=== PATIENT | female | born 1990 | race Hispanic/Latino ===

== ENCOUNTER 2025-09-08 23:59 | Emergency (ER) | payer OTHER ==
--- OUTSIDE RECORDS SUMMARY | 2025-09-09 00:09 | XMS REPORT | Continuity of Care Document ---
Author Name Unknown Address [address] [facility] [address] [place] [address] [facility] [place] Address [address] [facility]. 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 Role Phone SYLVIAKATLIN DIETZ Primary Care Physician Unavailab RON Wisdom Attending Clinician Unavailable BALDEMAR ARRINGTON Attending Clinician Unavailable BALDEMAR ARRINGTON Attending Clinician Unavailable Sharlene Samano MD Attending Clinician [phone] Adalid Self MD Attending Clinician [phone] ZORA YOUNG Attending Clinician Unavailable ZORA YOUNG Attending Clinician Unavailable Champ Kimberley WELSH Attending Clinician + HEIDY IVTAL Attending Clinician Unavaila MAME Ha Attending Clinician Unavailable Doctor Unassigned, [place] Attending Clinician U navailable KIMBERLEY OAKES Attending Clinician Unavail able SUMA CHEN Attending Clinician Unavailable SUMA CHEN Attending Clinician Unavailable Heidy Vital CNM Attending Clinician [phone] Ultrasound, Pradipnikos Attending Clinician Unavaila Ruby Rhoades MD Attending Clinician ARABELLA SAMUEL Attending Clinician Unavailable [facility] Attending Clinician Unava ilERIKA Romeo Attending Clinician Unavailable ERIKA PARR Attending Clinician Unavailable MIKIE DEGROOT Attending Clinician Unavailable MIKIE DEGROOT Attending Clinician Unavailable LADONNA GOLDSTEIN Attending Clinician Unav ailable LADONNA GOLDSTEIN Attending Clinician Unav glenn Goldstein MD, Ladonna Diaz Attending Clinician + Sylvia PADILLA, Katlin Attending Clinician [phone] KATLIN WARD Attending Clinician Unavailable SEBLE VALENZUELA Attending Clinician Unavailab DAYANA Lopez Attending Clinician Unavailable DAYANA JESSICA Attending Clinician Unavailable Peter PADILLA, Heidy Attending Clinician [phone] SARAY BAEZ Attending Clinician Unavailab SARAY Resendez Attending Clinician Unavailab MARY Vega Attending Clinician Unavailable Nurse, [facility] Rgv Cprit Obgyree Attending Clini marimar Unavailable Kimberley Farr Attending Clinician + Terrell JIMENEZ, Guillermina Fuchs Attending Clinician NIMISHA BECKMAN Attending Clinician Unavailab bronson Beckman MD, Nimisha Sutherland Attending Clinician [phone] MICHAEL SEVILLA Attending Clinician Unavailable MICHAEL SEVILLA Attending Clinician Unavailable Michael Sevilla MD Attending Clinician [phone] Visit, [facility] Nurse Attending Clinician Unava ilHeidy Luna CNM Attending Clinician [phone] [facility], [facility] Temp Attending Clinician Daysi vailatristan Jeong NP, Bonny Attending Clinician [phone] BONNY JEONG Attending Clinician Unavailable ARABELLA SAMUEL Admitting Clinician Unavailable ERIKA PARR Admitting Clinician Unavailable BALDEMAR ARRINGTON Admitting Clinician Unavailable ZORA YOUNG Admitting Clinician Unavailable SEBLE VALENZUELA Admitting Clinician Unavailab SARAY Resendez Admitting Clinician Unavailab bronson Payers Payer Name Policy Type Policy Number Effective Date Expirati on Date Source [facility] CHIP JEISON LOW FPL [id number] 2024 00:00:00 [facility] [id number] EMERGENCY MEDICAID [id number] 2025 00:00:00 2025 00:00:00 Problems Condition Name Condition Details Condition Category Status Onset Date Resolution Date Last Treatment Date Treating Clinician Comments Source (spontaneo us vaginal delivery) (spontaneo us vaginal delivery) Disease Active 2024-11 0-05 00:00: 00 [facility] Single liveborn infant Single liveborn infant Disease Active 2024-11 0-05 00:00: 00 [facility] 39 weeks gestation of 39 weeks gestation of Disease Active 2024-11 0-03 00:00: 00 [facility] Bacterial vaginosis in Bacterial vaginosis in Disease Active 2024-11 0-03 00:00: 00 [facility] 38 weeks gestation of 38 weeks gestation of Disease Active 2024-11 0-02 00:00: 00 [facility] Obesity (BMI 30-39.9) Obesity (BMI 30-39.9) Disease Active 2024-11 0-02 00:00: 00 [facility] Dizziness Dizziness Disease Active 9-10 00:00: 00 [facility] Vertigo Vertigo Disease Active 0 9-10 00:00: 00 [facility] Anxiety during in third trimester, antepartum Anxiety during in third trimester, antepartum Disease Active 8-05 00:00: 00 [facility] Depression during , antepartum Depression during , antepartum Disease Active 8-05 00:00: 00 [facility] Anemia of mother in , antepartum Anemia of mother in , antepartum Disease Active 0 6-12 00:00: 00 [facility] Heartburn during Heartburn during Disease Active 0 4-16 00:00: 00 [facility] Acute UTI (urinary tract infection) Acute UTI (urinary tract infection) Disease Active 0 2-27 00:00: 00 [facility] Rubella non-immune status, antepartum Rubella non-immune status, antepartum Disease Active 0 2-07 00:00: 00 [facility] Dermatitis of face Dermatitis of face Disease Active 0 2-06 00:00: 00 [facility] Obesity affecting Obesity affecting Disease Active 0 2-06 00:00: 00 [facility] History of miscarriag e, currently History of miscarriag e, currently Disease Active 0 2-06 00:00: 00 [facility] History of migraine with aura History of migraine with aura Disease Active 0 4-30 00:00: 00 [facility] Urinary tract infection in mother during third trimester of Urinary tract infection in mother during third trimester of Disease Resolve d 2024-0 2-27 00:00: 00 2025-08-29 00:00:00 2025-08-29 13:16:24 [facility] 35 weeks gestation of 35 weeks gestation of Disease Resolve d 2024-0 9-10 00:00: 00 2025-08-13 00:00:00 2025-08-13 14:06:03 [facility] Headache Headache Disease Resolve d 2024-0 9-10 00:00: 00 2025-08-07 00:00:00 2025-08-07 08:49:56 [facility] Tinnitus of both ears Tinnitus of both ears Disease Resolve d 2024-0 8-01 00:00: 00 2025-08-07 00:00:00 2025-08-07 08:50:09 [facility] Low-lying placenta Low-lying placenta Disease Resolve d 2024-0 7-09 00:00: 00 2025-08-07 00:00:00 2025-08-07 08:49:48 [facility] 30 weeks gestation of 30 weeks gestation of Disease Resolve d 2024-0 8-05 00:00: 00 2025-07-08 00:00:00 2025-07-08 13:30:13 [facility] Uterine size-date discrepanc y in second trimester Uterine size-date discrepanc y in second trimester Disease Resolve d 2024-0 6-11 00:00: 00 2025-06-04 00:00:00 2025-06-04 09:09:59 [facility] Acute cough Acute cough Disease Resolve d 2024-0 2-27 00:00: 00 2025-02-25 00:00:00 2025-02-25 15:23:23 [facility] Subchorion ic hemorrhage of placenta in first trimester Subchorion ic hemorrhage of placenta in first trimester Disease Resolve d 2-27 00:00: 00 2025-02-25 00:00:00 2025-02-25 15:24:06 [facility] Abdominal pain affecting Abdominal pain affecting Disease Resolve d 2-27 00:00: 00 2025-01-29 00:00:00 2025-01-29 12:02:01 [facility] Upper respirator y tract infection, unspecifie d type Upper respirator y tract infection, unspecifie d type Disease Resolve d 2-27 00:00: 00 2025-01-29 00:00:00 2025-01-29 12:02:02 [facility] Vaginal bleeding affecting early Vaginal bleeding affecting early Disease Resolve d 2-27 00:00: 00 2025-01-28 00:00:00 2025-01-28 15:12:38 [facility] Other general counseling and advice for contracept michael management Other general counseling and advice for contracept michael management Disease Resolve d 4-30 00:00: 00 2025-01-02 00:00:00 2025-01-02 12:56:23 [facility] Need for HPV vaccinatio n Need for HPV vaccinatio n Disease Resolve d 2022-11 2-06 00:00: 00 2025-01-02 00:00:00 2025-01-02 12:56:23 [facility] Allergies, Adverse Reactions, Alerts Allergy Name Allergy Type Status Severity Reaction(s) Onset Date Inactive Date Treating Clinician Comments Source NO KNOWN ALLERGIE S Drug Class Active [facility] Social History Social Habit Start Date Stop Date Quantity Comments Source ASSERTION 2024-12-14 00:00:00 Not [facility] intake 2025-08-30 00:00:00 2025-08-30 00:00:00 Lifetime non-drinker (finding) [facility] History of Social function 2025-01-24 00:00:00 2025-01-24 00:00:00 [facility] Alcohol intake 2024-03-26 00:00:00 2024-03-26 00:00:00 Lifetime non-drinker (finding) [facility] Tobacco use and exposure 2023-09-18 00:00:00 2023-09-18 00:00:00 Smokeless tobacco non-user [facility] Sex assigned at 1990 00:00:00 1990 00:00:00 [facility] Smoking Status Start Date Stop Date Source Never smoked tobacco [facility] Medications Ordered Medication Name Filled Medication Name Start Date Stop Date Current Medication? Ordering Clinician Indication Dosage Frequency Signature (SIG) Comments Components Source cyclobenzap rine (FLEXERIL) tablet 5 mg cyclobenzap rine (FLEXERIL) tablet 5 mg 2024-11 02:30: 00 08-31 02:08 :00 Yes 5mg 5 mg, Oral, ONCE, 1 dose, On 08/30/25 at 2130, Routine [facility] vitamin w/FA tablet 2024-11 00:00: 00 Yes [id number] 1{tbl} Take 1 tablet by mouth daily. [facility] docusate 100 mg capsule 2024-11 00:00: 00 Yes [id number] 200mg Take 2 capsules by mouth once daily as needed for Constipati on. [facility] ferrous sulfate 325 mg (65 mg iron) tablet 2024-11 00:00: 00 Yes [id number] 325mg Take 1 tablet by mouth daily. [facility] ibuprofen 800 mg tablet 2024-11 00:00: 00 Yes [id number] 800mg Take 1 tablet by mouth every 8 hours as needed (pain). Take with food or milk. [facility] ibuprofen (IBU) tablet 600 mg ibuprofen (IBU) tablet 600 mg 2024-11 21:15: 00 08-31 21:36 :30 Yes 600mg 600 mg, Oral, TID, First dose on 08/30/25 at 1615, Until Discontinu ed, Routine [facility] acetaminoph en (TYLENOL) tablet 650 mg acetaminoph en (TYLENOL) tablet 650 mg 2024-11 0 19:00: 00 08-31 21:36 :30 Yes 650mg 650 mg, Oral, TID, First dose on 08/30/25 at 1400, Until Discontinu ed, Routine [facility] rho(D) immune globulin (RHOPHYLAC) injection 300 mcg 2024-11 0 18:56: 39 08-31 21:36 :30 No 300ug [facility] diphenhydrA MINE (BENADRYL) tablet 25 mg 2024-11 18:56: 36 08-31 21:36 :30 No 25mg [facility] ondansetron (ZOFRAN (PF)) injection 4 mg ondansetron (ZOFRAN (PF)) injection 4 mg 2024-11 18:56: 36 08-31 21:36 :30 Yes 4mg 4 mg, Slow IV Push, Q8HPRN, Starting on 08/30/25 at 1356, Until 08/31/25 at 1636, Administer over 2-5 Minutes, 2 mL [facility] simethicone (GAS RELIEF (SIMETHICON E)) chewable tablet 160 mg simethicone (GAS RELIEF (SIMETHICON E)) chewable tablet 160 mg 2024-11 18:56: 36 08-31 21:36 :30 Yes 160mg 160 mg, Oral, PC+HSPRN, Starting on 08/30/25 at 1356, Until 08/31/25 at 1636, Routine, Gas [facility] docusate (COLACE) capsule 200 mg docusate (COLACE) capsule 200 mg 2024-11 0-04 18:56: 36 08-31 21:36 :30 Yes 200mg 200 mg, Oral, QDAILYPRN, Starting on 08/30/25 at 1356, Until 08/31/25 at 1636, Routine, Constipati on [facility] magnesium hydroxide (MILK OF MAGNESIA) 400 mg/5 mL suspension 30 mL 2024-11 004 18:56: 36 08-31 21:36 :30 No 30mL [facility] benzocaine- menthol (DERMOPLAST ) 20-0.5 % topical spray benzocaine- menthol (DERMOPLAST ) 20-0.5 % topical spray 2024-11 0 18:56: 35 08-31 21:36 :30 Yes Topical, PRN, Starting on 08/30/25 at 1356, Until 08/31/25 at 1636, Routine, Perineum discomfort [facility] metroNIDAZO LE (FLAGYL) tablet 500 mg metroNIDAZO LE (FLAGYL) tablet 500 mg 2024-11 01:00: 00 08-30 18:56 :38 Yes 500mg 500 mg, Oral, Q12H, 8 doses, First dose on Mon08/29/25 at 2000, Last dose on Mon09/02/25 at 0800, Routine, Reason for Anti-Infec tive: Documented Infection, Documented Infection Site: Abdominal, Pelvic, Duration of therapy: Once (ED) [facility] ropivacaine 0.2 % (NAROPIN (PF)) epidural infusion 2024-11 23:22: 00 08-30 18:57 :50 No Epidural, CONTINUOUS PRN, Starting on Mon08/29/25 at 1822, Until 08/30/25 at 1357, Routine, Intra-op [facility] lidocaine-e pinephrine (XYLOCAINE W/EPINEPHRI NE) 1.5 %-1:200,000 injection 2024-11 003 23:19: 00 08-30 18:57 :50 No Epidural, ONCE INTRA PROCEDURE, Starting on Mon08/29/25 at 1819, Until 08/30/25 at 1357, Routine, Intra-op [facility] lactated ringers IV infusion 500 mL 2024-11 0-03 22:00: 00 08-29 23:36 :22 No 500mL at 999 mL/hr, 500 mL, IV Infusion, ONCE, 1 dose, On Mon08/29/25 at 1700, Routine [facility] ondansetron (ZOFRAN (PF)) injection 4 mg ondansetron (ZOFRAN (PF)) injection 4 mg 2024-11 22:00: 00 08-29 21:08 :00 Yes 4mg 4 mg, Slow IV Push, ONCE, On Mon08/29/25 at 1700, For 1 dose, Please give medication over 2-5 minutes. [facility] sodium citrate-cit irene acid (BICITRA) 500-334 mg/5 mL solution 30 mL 2024-11 21:00: 30 08-29 23:01 :00 No 30mL 30 mL, Oral, PRE-PROCED URE ONCE, 1 dose, Starting on Mon08/29/25 at 1600, Until Mon08/29/25 at 1801, Routine, Surgery/Pr ocedure [facility] Oxytocin in Normal Saline 30 unit/500 mL IV infusion Soln Oxytocin in Normal Saline 30 unit/500 mL IV infusion Soln 2024-11 21:00: 00 08-30 18:56 :38 Yes 0mU/min 0-42 yeni-unit s/min (0-42 mL/hr), IV Infusion, CONTINUOUS , Starting on Mon08/29/25 at 1600, Infuse IV through a controlled infusion pump at a proximal port on the peripheral IV line. Oxytocin may be increased to 30 milliunits when ordered by a 3rd or 4th year resident or attending physician/ faculty. 3rd or 4th year resident must document a note that the increase to 30 milliunits was discussed with faculty. Oxytocin may be increased to 42 milliunits when ordered by a 3rd or 4th year resident or attending physician/ faculty. 3rd or 4th year resident must document a note that the increase to 42 milliunits was discussed with faculty. Max 42 yeni-unit s/min. Oxytocin shall be maintained at a rate that achieves adequate contractio ns. "Adequate contractio ns" means 3-5 contractio ns in 10 minutes averaged over a 30-minute window -or- at least 200 MVU every 10 minutes for 2 hours if an IUPC is in place. Incrementa l dosage of oxytocin is determined by uterine and response; therefore the RN may increase or decrease the dosage by 6mu or discontinu e oxytocin based on maternal and assessment . See policy 7.11.52. For post-deliv sissy uterotonic : Increase to 300 mL/hr for 1 hr then 150 mL/hr for 1 hr. For post delivery uterine atony: Start at 600 mL/hr for 1 hr then 150 mL/hr for 1 hr. [facility] D5W-LR IV infusion 1,000 mL 2024-11 003 17:10: 36 08-30 18:56 :38 No 1000mL at 1-75 mL/hr, IV Infusion, TITRATE, Starting on Mon08/29/25 at 1210, Until 08/30/25 at 1356, Routine [facility] metroNIDAZO LE 500 mg tablet 08-26 00:00: 00 Yes [id number] 500mg Take 1 tablet by mouth 2 times daily. [facility] diphenhydrA MINE (BENADRYL) tablet 25 mg diphenhydrA MINE (BENADRYL) tablet 25 mg 08-06 08:15: 00 08-06 08:11 :00 Yes 25mg 25 mg, Oral, Once, 1 dose, On Mon08/06/25 at 0315, Routine [facility] metoclopram sixto HCl (REGLAN) tablet 10 mg metoclopram sixto HCl (REGLAN) tablet 10 mg 08-06 08:15: 00 08-06 08:11 :00 Yes 10mg 10 mg, Oral, Once, 1 dose, On Mon08/06/25 at 0315, Routine [facility] acetaminoph en (TYLENOL) tablet 650 mg 08-06 01:30: 00 08-06 01:37 :00 No 650mg 650 mg, Oral, ONCE, 1 dose, On Mon08/05/25 at 2030, RAFFAELE [facility] diphenhydrA MINE 25 mg tablet 08-06 00:00: 00 08-31 00:00 :00 No [id number] 25mg Take 1 tablet by mouth every 6 hours as needed for Sleep or Other (take with Reglan for Headaches) . [facility] metoclopram sixto HCl 10 mg tablet 08-06 00:00: 08-31 00:00 :00 No [id number] 10mg Take 1 tablet by mouth every 6 hours as needed (take with benadryl for headache). [facility] cefTRIAXone (ROCEPHIN) 1,000 mg in sterile water for injection 10 mL IV Push 08-05 23:30: 00 08-05 23:48 :00 No 1000mg 1,000 mg, Intravenou s, ONCE, 1 dose, On Mon08/05/25 at 1830, 10 mL, Reason for Anti-Infec tive: Documented Infection, Documented Infection Site: Urine, Duration of therapy: Once (ED) [facility] NaCl 0.9% (NS) bolus infusion 1,000 mL 08-05 22:30: 00 08-06 01:36 :00 No 1000mL at 999 mL/hr, 1,000 mL, IV Infusion, ONCE, 1 dose, On Mon08/05/25 at 1730, RAFFAELE [facility] ondansetron (ZOFRAN (PF)) injection 4 mg 08-05 21:45: 00 08-05 23:24 :00 No 4mg 4 mg, Slow IV Push, ONCE, 1 dose, On Mon08/05/25 at 1645, Administer over 2-5 Minutes, 2 mL [facility] ondansetron 4 mg disintegrat ing tablet 08-05 00:00: 00 08-31 00:00 :00 No [id number] 4mg Take 1 tablet by mouth every 8 hours as needed for Nausea and Vomiting (N/V). [facility] cephALEXin 500 mg capsule 08-05 00:00: 00 08-13 04:59 :00 Yes [id number] 500mg Take 1 capsule by mouth 4 times daily for 7 days. [facility] hydrOXYzine 25 mg tablet 8-15 00:00: 00 08-31 00:00 :00 No [id number] 25mg Take 1 tablet by mouth every 6 hours as needed for Itching. [facility] ondansetron 4 mg tablet 8-05 00:00: 00 08-31 00:00 :00 No [id number] 4mg Take 1 tablet by mouth every 8 hours as needed for Nausea and Vomiting (N/V). [facility] hydrOXYzine 10 mg tablet 07-01 00:00: 00 07-11 00:00 :00 No [id number] 10mg Take 1 tablet by mouth every 6 hours as needed for Itching or Anxiety. [facility] maalox/diph enhydrAMINE :lidocaine2 %viscous 1:1:1: suspension (COMPOUNDED ) 05-08 06:15: 00 05-08 06:21 :00 No 15mL 15 mL, Oral, ONCE, 1 dose, On Mon05/08/25 at 0115, Routine [facility] Iron Fum & P-FA-Vit B & C No.9 (INTEGRA PLUS) 125 mg iron- 1 mg Cap 05-08 00:00: 00 07-10 00:00 :00 No [id number] 1{capsu le} Take 1 capsule by mouth daily. [facility] metroNIDAZO LE 500 mg tablet 5-14 00:00: 00 05-06 00:00 :00 No [id number] 500mg Take 1 tablet by mouth 2 (two) times daily. [facility] PNV 67-iron ps-folate no.1-dha (VITAFOL ULTRA) 29 mg iron- 1 mg-200 mg Cap -16 00:00: 00 08-31 00:00 :00 No [id number] 1{capsu le} Take 1 capsule by mouth daily. [facility] esomeprazol e 20 mg capsule 16 00:00: 00 08-31 00:00 :00 No [id number] 20mg Take 1 capsule by mouth daily before a meal. [facility] PNV no.95/sandra us fum/folic ac ( ORAL) 2-28 11:07: 05 03-12 00:00 :00 No Take by mouth. [facility] cefdinir 300 mg capsule 2-25 00:00: 00 01-29 05:59 :00 No [id number] 4 300mg Take 1 capsule by mouth every 12 (twelve) hours for 7 days. [facility] proMETHazin e 25 mg tablet 2-20 00:00: 00 08-07 00:00 :00 No [id number] 25mg Take 1 tablet by mouth every 4 (four) hours as needed for Nausea and Vomiting (N/V). [facility] norethindro ne 0.35 mg tablet 03-26 00:00: 00 01-02 00:00 :00 No [id number] 1{tbl} Take 1 tablet by mouth daily. [facility] pimecrolimu s 1 % cream 4- 00:00: 00 08-31 00:00 :00 No [id number] Apply to area(s) every morning. Safe for the face. [facility] tacrolimus 0.1 % ointment 3 00:00: 00 08-31 00:00 :00 No [id number] Apply to area(s) 2 (two) times daily. Safe for the face. [facility] fluticasone propionate 0.05 % cream 2- 00:00: 00 08-31 00:00 :00 No [id number] Apply to area(s) 2 (two) times daily. [facility] doxycycline monohydrate 100 mg capsule 2-08 00:00: 00 01-02 00:00 :00 No [id number] 100mg Take 1 capsule by mouth 2 (two) times daily. [facility] medroxyPROG ESTERone (DEPO-PROVE RA) syringe 150 mg 2022-11 1-07 16:00: 00 11-26 15:59 :00 No [id number] 150mg [facility] Immunizations Ordered Immunization Name Filled Immunization Name Date Status Comments Source MMR 2025-08-31 00:00:00 Completed [facility] Flu Injectable MDCK Pres-Free (FLUCELVAX) 2025-08-13 00:00:00 Completed [facility] TDAP 2025-06-17 00:00:00 Completed [facility] Flu Injectable MDCK Pres-Free (FLUCELVAX) 2025-01-02 00:00:00 Completed [facility] HPV9 2024-03-26 00:00:00 Completed HPV9 2023-11-01 00:00:00 Completed Influenza Virus Vaccine Quad .5 mL IM 6+ MO (FLUZONE/FLULAVAL/F LUARIX) 2023-11-01 00:00:00 Completed [facility] HPV9 2023-09-18 00:00:00 Completed [facility] Influenza Virus Vaccine Quad .5 mL IM 6+ MO (FLUZONE/FLULAVAL/F LUARIX) Unknown Completed [facility] HPV9 Unknown Completed [facility] Influenza Virus Vaccine Quad .5 mL IM 6+ MO (FLUZONE/FLULAVAL/F LUARIX) Unknown Completed [facility] HPV9 Unknown Completed [facility] HPV9 Unknown Completed [facility] Influenza Virus Vaccine Quad .5 mL IM 6+ MO (FLUZONE/FLULAVAL/F LUARIX) Unknown Completed [facility] HPV9 Unknown Completed [facility] Influenza Virus Vaccine Quad .5 mL IM 6+ MO (FLUZONE/FLULAVAL/F LUARIX) Unknown Completed [facility] HPV9 Unknown Completed [facility] Influenza Virus Vaccine Quad .5 mL IM 6+ MO (FLUZONE/FLULAVAL/F LUARIX) Unknown Completed [facility] HPV9 Unknown Completed [facility] Influenza Virus Vaccine Quad .5 mL IM 6+ MO (FLUZONE/FLULAVAL/F LUARIX) Unknown Completed [facility] HPV9 Unknown Completed [facility] Influenza Virus Vaccine Quad .5 mL IM 6+ MO (FLUZONE/FLULAVAL/F LUARIX) Unknown Completed [facility] HPV9 Unknown Completed [facility] HPV9 Unknown Completed [facility] HPV9 Unknown Completed [facility] HPV9 Unknown Completed [facility] HPV9 Unknown Completed [facility] Influenza Virus Vaccine Quad .5 mL IM 6+ MO (FLUZONE/FLULAVAL/F LUARIX) Unknown Completed [facility] Vital Signs Vital Name Observation Time Observation Value Comments S ource Systolic blood pressure 2025-08-31 12:37:00 106 mm[Hg] [facility] Diastolic blood pressure 2025-08-31 12:37:00 72 mm[Hg] [facility] Heart rate 2025-08-31 12:37:00 70 /min Unive [facility] Body temperature 2025-08-31 12:37:00 36.5 Claudia [facility] Respiratory rate 2025-08-31 12:37:00 18 /min [facility] Oxygen saturation in Arterial blood by Pulse oximetry 2025-08-31 12:37:00 98 /min [facility] Body height 2025-08-29 15:55:00 160 cm [facility] Body weight 2025-08-29 15:55:00 [facility].553 [facility] [facility] BMI 2025-08-29 15:55:00 32.64 kg/m2 [facility] Systolic blood pressure 2025-08-29 04:24:00 115 mm[Hg] [facility] Diastolic blood pressure 2025-08-29 04:24:00 69 mm[Hg] [facility] Heart rate 2025-08-29 04:24:00 92 /min [facility] Respiratory rate 2025-08-29 04:24:00 17 /min [facility] Oxygen saturation in Arterial blood by Pulse oximetry 2025-08-29 04:24:00 98 /min [facility] Body temperature 2025-08-29 00:30:00 36.94 Claudia [facility] Body weight 2025-08-29 00:21:00 84.913 kg [facility] BMI 2025-08-29 00:21:00 33.16 kg/m2 [facility] Systolic blood pressure 2025-08-27 19:33:00 111 mm[Hg] [facility] Diastolic blood pressure 2025-08-27 19:33:00 68 mm[Hg] [facility] Heart rate 2025-08-27 19:33:00 86 /min [facility] Body temperature 2025-08-27 19:33:00 35.94 Claudia [facility] Respiratory rate 2025-08-27 19:33:00 18 /min [facility] Body height 2025-08-27 19:33:00 160 cm [facility] Body weight 2025-08-27 19:33:00 84.233 kg [facility] BMI 2025-08-27 19:33:00 32.90 kg/m2 [facility] Systolic blood pressure 2025-08-20 19:58:00 111 mm[Hg] [facility] Diastolic blood pressure 2025-08-20 19:58:00 66 mm[Hg] [facility] Heart rate 2025-08-20 19:58:00 75 /min [facility] Body temperature 2025-08-20 19:58:00 36.22 Claudia [facility] Respiratory rate 2025-08-20 19:58:00 19 /min [facility] Body height 2025-08-20 19:58:00 160 cm [facility] Body weight 2025-08-20 19:58:00 84.029 kg [facility] BMI 2025-08-20 19:58:00 32.82 kg/m2 [facility] Systolic blood pressure 2025-08-13 19:01:00 103 mm[Hg] [facility] Diastolic blood pressure 2025-08-13 19:01:00 65 mm[Hg] [facility] Heart rate 2025-08-13 19:01:00 82 /min [facility] Body temperature 2025-08-13 19:01:00 36.39 Claudia [facility] Respiratory rate 2025-08-13 19:01:00 20 /min [facility] Body height 2025-08-13 19:01:00 160 cm [facility] Body weight 2025-08-13 19:01:00 84.029 kg [facility] BMI 2025-08-13 19:01:00 32.82 kg/m2 [facility] Systolic blood pressure 2025-08-06 19:02:00 100 mm[Hg] [facility] Diastolic blood pressure 2025-08-06 19:02:00 67 mm[Hg] [facility] Heart rate 2025-08-06 19:02:00 90 /min [facility] Body temperature 2025-08-06 19:02:00 36.83 Claudia [facility] Respiratory rate 2025-08-06 19:02:00 17 /min [facility] Body height 2025-08-06 19:02:00 160 cm [facility] Body weight 2025-08-06 19:02:00 83.065 kg [facility] BMI 2025-08-06 19:02:00 32.44 kg/m2 [facility] Heart rate 2025-08-06 09:07:00 75 /min [facility] Oxygen saturation in Arterial blood by Pulse oximetry 2025-08-06 09:07:00 98 /min [facility] Systolic blood pressure 2025-08-06 09:00:00 96 mm[Hg] [facility] Diastolic blood pressure 2025-08-06 09:00:00 58 mm[Hg] [facility] Respiratory rate 2025-08-06 09:00:00 18 /min [facility] Body temperature 2025-08-06 07:50:00 36.72 Claudia [facility] Body height 2025-08-06 07:16:00 160 cm [facility] Body weight 2025-08-06 07:16:00 82.555 kg [facility] BMI 2025-08-06 07:16:00 32.24 kg/m2 [facility] Body temperature 2025-08-06 01:37:00 36.67 Claudia [facility] Diastolic blood pressure 2025-08-06 01:36:00 66 mm[Hg] [facility] Heart rate 2025-08-06 01:36:00 84 /min [facility] Respiratory rate 2025-08-06 01:36:00 16 /min [facility] Systolic blood pressure 2025-08-06 01:36:00 100 mm[Hg] [facility] Oxygen saturation in Arterial blood by Pulse oximetry 2025-08-06 01:00:00 100 /min [facility] Body height 2025-08-05 21:31:12 160 cm [facility] Body weight 2025-08-05 21:31:12 82.6 kg [facility] BMI 2025-08-05 21:31:12 32.26 kg/m2 [facility] Systolic blood pressure 2025-07-22 14:49:00 100 mm[Hg] [facility] Diastolic blood pressure 2025-07-22 14:49:00 65 mm[Hg] [facility] Heart rate 2025-07-22 14:49:00 84 /min [facility] Body temperature 2025-07-22 14:49:00 35.89 Claudia [facility] Respiratory rate 2025-07-22 14:49:00 18 /min [facility] Body height 2025-07-22 14:49:00 160 cm [facility] Body weight 2025-07-22 14:49:00 81.92 kg [facility] BMI 2025-07-22 14:49:00 31.99 kg/m2 [facility] Systolic blood pressure 2025-07-08 13:44:00 100 mm[Hg] [facility] Diastolic blood pressure 2025-07-08 13:44:00 59 mm[Hg] [facility] Heart rate 2025-07-08 13:44:00 79 /[facility] Body temperature 2025-07-08 13:44:00 36.17 Claudia [facility] Respiratory rate 2025-07-08 13:44:00 17 /min [facility] Body height 2025-07-08 13:44:00 160 cm [facility] Body weight 2025-07-08 13:44:00 81.307 kg [facility] BMI 2025-07-08 13:44:00 31.75 kg/m2 [facility] Systolic blood pressure 2025-07-01 08:26:00 103 mm[Hg] [facility] Diastolic blood pressure 2025-07-01 08:26:00 59 mm[Hg] [facility] Heart rate 2025-07-01 08:26:00 85 /min [facility] Respiratory rate 2025-07-01 08:26:00 17 /min [facility] Oxygen saturation in Arterial blood by Pulse oximetry 2025-07-01 08:26:00 99 /min [facility] Body temperature 2025-07-01 07:43:00 36.56 Claudia [facility] Body height 2025-07-01 07:43:00 160 cm [facility] Systolic blood pressure 2025-06-27 11:56:00 99 mm[Hg] [facility] Diastolic blood pressure 2025-06-27 11:56:00 58 mm[Hg] [facility] Heart rate 2025-06-27 11:56:00 78 /min [facility] Body temperature 2025-06-27 11:56:00 35.72 Claudia [facility] Respiratory rate 2025-06-27 11:56:00 18 /min [facility] Body height 2025-06-27 11:56:00 160 cm [facility] Body weight 2025-06-27 11:56:00 80.967 kg [facility] BMI 2025-06-27 11:56:00 31.62 kg/m2 [facility] Systolic blood pressure 2025-06-26 19:07:00 112 mm[Hg] [facility] Diastolic blood pressure 2025-06-26 19:07:00 68 mm[Hg] [facility] Heart rate 2025-06-26 19:07:00 83 /min [facility] Body temperature 2025-06-26 19:07:00 36.06 Claudia [facility] Respiratory rate 2025-06-26 19:07:00 18 /min [facility] Body height 2025-06-26 19:07:00 160 cm [facility] Body weight 2025-06-26 19:07:00 81.012 kg [facility] BMI 2025-06-26 19:07:00 31.64 kg/m2 [facility] Systolic blood pressure 2025-06-17 20:29:00 109 mm[Hg] [place] [facility] Diastolic blood pressure 2025-06-17 20:29:00 71 mm[Hg] [facility] Heart rate 2025-06-17 20:29:00 88 /min [facility] Body temperature 2025-06-17 20:29:00 36.22 Claudia [facility] Respiratory rate 2025-06-17 20:29:00 18 /min [facility] Body height 2025-06-17 20:29:00 160 cm [facility] Body weight 2025-06-17 20:29:00 81.761 kg [facility] BMI 2025-06-17 20:29:00 31.93 kg/m2 [facility] Systolic blood pressure 2025-06-03 15:47:00 94 mm[Hg] [facility] Diastolic blood pressure 2025-06-03 15:47:00 62 mm[Hg] [facility] Heart rate 2025-06-03 15:47:00 87 /min [facility] Body temperature 2025-06-03 15:47:00 36.44 Claudia [facility] Respiratory rate 2025-06-03 15:47:00 17 /min [facility] Body height 2025-06-03 15:47:00 160 cm [facility] Body weight 2025-06-03 15:47:00 79.039 kg [facility] BMI 2025-06-03 15:47:00 30.87 kg/m2 [facility] Systolic blood pressure 2025-05-08 19:54:00 104 mm[Hg] [facility] Diastolic blood pressure 2025-05-08 19:54:00 64 mm[Hg] [place] [facility] Heart rate 2025-05-08 19:54:00 83 /min [facility] Body temperature 2025-05-08 19:54:00 36.56 Claudia [facility] Respiratory rate 2025-05-08 19:54:00 17 /min [facility] Body height 2025-05-08 19:54:00 160 cm [facility] Body weight 2025-05-08 19:54:00 78.529 kg [facility] BMI 2025-05-08 19:54:00 30.67 kg/m2 [facility] Systolic blood pressure 2025-05-08 07:11:00 108 mm[Hg] [place] [facility] Diastolic blood pressure 2025-05-08 07:11:00 63 mm[Hg] [facility] Heart rate 2025-05-08 07:11:00 80 /min [facility] Body temperature 2025-05-08 07:11:00 36.78 Claudia [facility] Respiratory rate 2025-05-08 07:11:00 16 /min [facility] Oxygen saturation in Arterial blood by Pulse oximetry 2025-05-08 07:11:00 99 /min [facility] Body height 2025-05-08 05:50:00 160 cm [facility] Body weight 2025-05-08 05:50:00 78.926 kg [facility] BMI 2025-05-08 05:50:00 30.82 kg/m2 [facility] Systolic blood pressure 2025-05-06 19:30:00 93 mm[Hg] [facility] Diastolic blood pressure 2025-05-06 19:30:00 61 mm[Hg] [facility] Heart rate 2025-05-06 19:30:00 81 /min [facility] Body temperature 2025-05-06 19:30:00 36.44 Claudia [facility] Respiratory rate 2025-05-06 19:30:00 17 /min [facility] Body height 2025-05-06 19:30:00 160 cm [facility] Body weight 2025-05-06 19:30:00 78.926 kg [facility] BMI 2025-05-06 19:30:00 30.82 kg/m2 [facility] Systolic blood pressure 2025-04-07 17:58:00 117 mm[Hg] [facility] Diastolic blood pressure 2025-04-07 17:58:00 72 mm[Hg] [facility] Heart rate 2025-04-07 17:58:00 97 /min [facility] Body temperature 2025-04-07 17:58:00 36.56 Claudia [facility] Respiratory rate 2025-04-07 17:58:00 18 /min [facility] Body height 2025-04-07 17:58:00 160 cm [facility] Body weight 2025-04-07 17:58:00 75.978 kg [facility] BMI 2025-04-07 17:58:00 29.67 kg/m2 [facility] Body weight 2025-03-25 19:37:00 76.261 kg [facility] BMI 2025-03-25 19:37:00 29.78 kg/m2 [facility] Systolic blood pressure 2025-03-25 19:37:00 109 mm[Hg] [facility] Diastolic blood pressure 2025-03-25 19:37:00 60 mm[Hg] [facility] Heart rate 2025-03-25 19:37:00 75 /min [facility] Body temperature 2025-03-25 19:37:00 36.61 Claudia [facility] Respiratory rate 2025-03-25 19:37:00 18 /min [facility] Body height 2025-03-25 19:37:00 160 cm [facility] Systolic blood pressure 2025-03-12 19:52:00 103 mm[Hg] [facility] Diastolic blood pressure 2025-03-12 19:52:00 64 mm[Hg] [facility] Heart rate 2025-03-12 19:52:00 82 /min [facility] Body temperature 2025-03-12 19:52:00 36.5 Claudia [facility] Respiratory rate 2025-03-12 19:52:00 16 /min [facility] Body height 2025-03-12 19:52:00 160 cm [facility] Body weight 2025-03-12 19:52:00 75.807 kg [facility] BMI 2025-03-12 19:52:00 29.60 kg/m2 [facility] Systolic blood pressure 2025-02-25 20:51:00 105 mm[Hg] [facility] Diastolic blood pressure 2025-02-25 20:51:00 62 mm[Hg] [facility] Heart rate 2025-02-25 20:51:00 81 /min [facility] Body temperature 2025-02-25 20:51:00 36.78 Claudia [facility] Respiratory rate 2025-02-25 20:51:00 18 /min [facility] Body height 2025-02-25 20:51:00 160 cm [facility] Body weight 2025-02-25 20:51:00 76.715 kg [facility] BMI 2025-02-25 20:51:00 29.96 kg/m2 [facility] Systolic blood pressure 2025-01-28 20:43:00 117 mm[Hg] [facility] Diastolic blood pressure 2025-01-28 20:43:00 73 mm[Hg] [facility] Heart rate 2025-01-28 20:43:00 89 /min [facility] Body temperature 2025-01-28 20:43:00 36.94 Claudia [facility] Respiratory rate 2025-01-28 20:43:00 18 /min [facility] Body height 2025-01-28 20:43:00 160 cm [facility] Body weight 2025-01-28 20:43:00 79.918 kg [facility] BMI 2025-01-28 20:43:00 31.21 kg/m2 [facility] Systolic blood pressure 2025-01-24 17:07:00 98 mm[Hg] [facility] Diastolic blood pressure 2025-01-24 17:07:00 65 mm[Hg] [facility] Heart rate 2025-01-24 17:07:00 85 /min [facility] Body temperature 2025-01-24 17:07:00 36.83 Claudia [facility] Respiratory rate 2025-01-24 17:07:00 18 /min [facility] Body height 2025-01-24 17:07:00 160 cm [facility] Body weight 2025-01-24 17:07:00 80.423 kg [facility] BMI 2025-01-24 17:07:00 31.41 kg/m2 [facility] Oxygen saturation in Arterial blood by Pulse oximetry 2025-01-24 17:07:00 97 /min [facility] Body temperature 2025-01-21 21:30:27 36.39 Claudia [facility] Systolic blood pressure 2025-01-21 21:09:57 107 mm[Hg] [facility] Diastolic blood pressure 2025-01-21 21:09:57 61 mm[Hg] [facility] Heart rate 2025-01-21 21:09:57 88 /min [facility] Respiratory rate 2025-01-21 21:09:57 18 /min [facility] Oxygen saturation in Arterial blood by Pulse oximetry 2025-01-21 21:09:57 99 /min [facility] Body height 2025-01-21 19:31:00 162.6 cm [facility] Body weight 2025-01-21 19:31:00 81.647 kg [facility] BMI 2025-01-21 19:31:00 30.90 kg/m2 [facility] Systolic blood pressure 2025-01-06 17:12:00 120 mm[Hg] [facility] Diastolic blood pressure 2025-01-06 17:12:00 79 mm[Hg] [facility] Heart rate 2025-01-06 17:12:00 92 /min [facility] Body temperature 2025-01-06 17:12:00 37.11 Claudia [facility] Respiratory rate 2025-01-06 17:12:00 15 /min [facility] Body height 2025-01-06 17:12:00 157.5 cm [facility] Body weight 2025-01-06 17:12:00 81.647 kg [facility] BMI 2025-01-06 17:12:00 32.92 kg/m2 [facility] Oxygen saturation in Arterial blood by Pulse oximetry 2025-01-06 17:12:00 100 /min [facility] Systolic blood pressure 2025-01-02 18:49:00 109 mm[Hg] [facility] Diastolic blood pressure 2025-01-02 18:49:00 71 mm[Hg] [facility] Heart rate 2025-01-02 18:49:00 87 /min [facility] Body temperature 2025-01-02 18:49:00 36.72 Claudia [facility] Respiratory rate 2025-01-02 18:49:00 18 /min [facility] Body height 2025-01-02 18:49:00 160 cm [facility] Body weight 2025-01-02 18:49:00 82.64 kg [facility] BMI 2025-01-02 18:49:00 32.27 kg/m2 [facility] Systolic blood pressure 2024-03-26 17:31:00 122 mm[Hg] [facility] Diastolic blood pressure 2024-03-26 17:31:00 79 mm[Hg] [facility] Heart rate 2024-03-26 17:31:00 84 /min [facility] Body temperature 2024-03-26 17:31:00 36.22 Caludia [facility] Respiratory rate 2024-03-26 17:31:00 18 /min [facility] Body height 2024-03-26 17:31:00 160 cm [facility] Body weight 2024-03-26 17:31:00 87.136 kg [facility] BMI 2024-03-26 17:31:00 34.03 kg/m2 [facility] Systolic blood pressure 2023-12-26 14:56:00 124 mm[Hg] [place] [facility] Diastolic blood pressure 2023-12-26 14:56:00 75 mm[Hg] [facility] Heart rate 2023-12-26 14:56:00 79 /min [facility] Body temperature 2023-12-26 14:56:00 36.22 Claudia [facility] Respiratory rate 2023-12-26 14:56:00 18 /min [facility] Body height 2023-12-26 14:56:00 160 cm [facility] Body weight 2023-12-26 14:56:00 82.283 kg [facility] BMI 2023-12-26 14:56:00 32.13 kg/m2 [facility] Body temperature 2023-11-01 20:39:00 36.44 Claudia [facility] Body temperature 2023-11-01 21:01:00 36.44 [facility] Systolic blood pressure 2023-10-03 15:39:00 118 mm[Hg] [facility] Diastolic blood pressure 2023-10-03 15:39:00 71 mm[Hg] [facility] Heart rate 2023-10-03 15:39:00 81 /min [facility] Body temperature 2023-10-03 15:39:00 36.06 Claudia [facility] Respiratory rate 2023-10-03 15:39:00 18 /min [facility] Body height 2023-10-03 15:39:00 160 cm [facility] Body weight 2023-10-03 15:39:00 78.654 kg [facility] BMI 2023-10-03 15:39:00 30.72 kg/m2 [facility] Systolic blood pressure 2023-09-18 19:25:00 131 mm[Hg] [place] [facility] Diastolic blood pressure 2023-09-18 19:25:00 86 mm[Hg] [facility] Heart rate 2023-09-18 19:25:00 89 /min [facility] Body temperature 2023-09-18 19:25:00 36.22 Claudia [facility] Respiratory rate 2023-09-18 19:25:00 18 /min [facility] Body height 2023-09-18 19:25:00 160 cm estimated [facility] Body weight 2023-09-18 19:25:00 77.111 kg [facility] BMI 2023-09-18 19:25:00 30.11 kg/m2 [facility] Procedures Procedure Date / Time Performed Performing Clinician Source CBC WITH DIFF 2025-08-31 08:50:00 Marah Anaya [facility] VENOUS CORD GAS 2025-08-30 16:33:00 [place], Chr istina Atingreg [facility] CENTRAL NEURAXIAL BLOCK 2025-08-29 23:19:00 Viviane Tang [facility] COMP. METABOLIC PANEL ([id number]) 2025-08-29 16:34:00 [facility] WITHOUT DIFF 2025-08-29 16:34:[address] [facility] HEPATITIS B SURFACE ANTIGEN 2025-08-29 [facility] TYPE AND SCREEN 2025-08-29 16:34[facility] GLOBULIN 2025-08-29 16:34:00 Maddy Anaya [facility] EXTRA TUBE LAV 2025-08-29 16:34:00 Buddy, Baldemar Uni [facility] EXTRA TUBE SST 2025-08-29 16:34:00 Buddy, Baldemar Uni [facility] HIV 1/2 AG-AB WITH REFLEX 2025-08-29 16:34:00 Lanie [facility] SYPHILIS IGG/IGM 2025-08-29 16:34:[address] [facility] FLU VACC ([id number]), 6 MO-64 YRS, .5ML, IM, TIV (FLUCELVAX) 2025-08-13 19:05:32 Heidy Vital [facility] GC & CHLAMYDIA AMPLIFIED ASSAY 2025-08-06 19:40:00 Heidy Vital [facility] LIPASE 2025-08-05 22:05:00 Suma Chen [facility] MAGNESIUM 2025-08-05 22:05:00 April Suma G [facility] COMP. METABOLIC PANEL ([id number]) 2025-08-05 22:05:00 Suma Chen [facility] CBC WITH DIFF 2025-08-05 22:05:00 Suma Chen [facility] URINALYSIS 2025-08-05 22:05:00 Suma Chen [facility] SECOND AND THIRD TRIMESTER ULTRASOUND 2025-07-08 13:20:00 Heidy Vital [facility] SGOT (ASPARTATE AMINO TRANSFER) 2025-06-17 21:05:00 Heidy Vital [facility] ALANINE AMINO TRANSFERASE(SGPT 2025-06-17 21:05:00 Heidy Vital [facility] TDAP VACCINE, >11 YRS, IM 2025-06-17 20:54:25 Heidy Vital [facility] GLUCOSE 1 HOUR POST PRANDIAL 2025-06-03 16:50:00 Heidy Vital [facility] CBC WITH DIFF 2025-06-03 16:50:00 Heidy Vital [facility] SECOND AND THIRD TRIMESTER ULTRASOUND 2025-05-27 14:29:00 Heidy Vital [facility] POCT URINALYSIS 2025-05-08 19:53:00 Heidy Vital [facility] LIPASE 2025-05-08 06:14:00 Rose Pringle [facility] TROPONIN I 2025-05-08 06:14:00 Rose Pringle [facility] COMP. METABOLIC PANEL ([id number]) 2025-05-08 06:14:00 Rose Pringle [facility] CBC WITH DIFF 2025-05-08 06:14:00 Rose Pringle [facility] POCT URINALYSIS 2025-05-06 19:30:00 Heidy Vital [facility] SECOND AND THIRD TRIMESTER ULTRASOUND 2025-04-24 20:09:00 Heidy Vital [facility] POCT URINALYSIS 2025-04-07 18:11:00 Heidy Vital [facility] POCT URINALYSIS 2025-04-07 17:57:00 Heidy Vital [facility] POCT URINALYSIS 2025-03-25 19:38:00 Heidy Vital [facility] URINE CULTURE 2025-03-12 21:15:00 Heidy Vital [facility] GALV ONLY - VAGINAL PATHOGENS BY NUCLEIC ACID TESTING 2025-03-12 21:15:00 Heidy Vital [facility] POCT URINALYSIS 2025-03-12 19:53:00 Heidy Vital [facility] NIPT - NON-INVASIVE TEST RESULTS 2025-03-10 21:51:52 Doctor Unassigned, [place] [facility] NIPT - NON-INVASIVE TEST RESULTS 2025-03-05 19:50:12 Doctor Unassigned, [place] [facility] POCT URINALYSIS 2025-02-25 20:54:00 Heidy Vital [facility] FIRST TRIMESTER ULTRASOUND 2025-02-12 20:49:00 Heidy Vital [facility] POCT URINALYSIS 2025-01-28 20:51:00 Heidy Vital [facility] TOTAL BETA HCG ASSAY 2025-01-21 20:10:00 Adolfo Jessica [facility] CBC WITH DIFF 2025-01-21 20:10:00 Dayana Jessica [facility] URINALYSIS 2025-01-21 20:10:00 Dayana Jessica [facility] US FIRST TRIMESTER LESS THAN 14 WEEKS WITH TRANSVAGINAL 2025-01-06 18:33:48 Saray Baez [facility] URINALYSIS 2025-01-06 18:10:00 [facility] (NA, K, CL, CO2, GLUCOSE, BUN, CREATININE, CA) 2025-01-06 18:06:00 Saray Baez [facility] TOTAL BETA HCG ASSAY 2025-01-06 18:06:00 Rubio Baez [facility] CBC WITH DIFF 2025-01-06 18:06:00 Saray Baez [facility] HB ABO GROUPING 2025-01-06 18:06:00 Saray Baez [facility] CBC WITH DIFF 2025-01-02 19:33:00 Heidy Vital [facility] RUBELLA SCREEN IGG 2025-01-02 19:33:00 Kamryn Vital [facility] VZV ANTIBODY SCREEN 2025-01-02 19:33:00 Fanny Vital [facility] HEPATITIS B SURFACE ANTIGEN 2025-01-02 19:33:00 Heidy Vital [facility] HCV ANTIBODY 2025-01-02 19:33:00 Heidy Vital U [facility] HB ABO GROUPING 2025-01-02 19:33:00 Heidy Vital [facility] HIV 1/2 AG-AB WITH REFLEX 2025-01-02 19:33:00 Heidy Vital [facility] SYPHILIS IGG/IGM 2025-01-02 19:33:00 Heidy Vital [facility] FLU VACC ([id number]), 6 MO-64 YRS, .5ML, IM, TIV (FLUCELVAX) 2025-01-02 19:19:02 Heidy Vital [facility] POCT TEST 2025-01-02 18:48:00 Fanny Vital [facility] POCT URINALYSIS W/O SPECIFIC GRAVITY 2025-01-02 18:48:00 Heidy Vital [facility] POCT TEST 2024-03-26 17:40:00 Ramón Oakes [facility] GARDASIL 9 (HPV 9V) VACCINE 2024-03-26 17:37:27 Kimberley Oakes [facility] "RWSP VINNIE ONLY" FLU VACC(), 6+ MONTHS, IM, QUAD (FLUZONE/FLULAVAL/FLUAR IX) 2023-11-01 21:02:45 Kimberley Oakes [facility] GARDASIL 9 (HPV 9V) VACCINE 2023-11-01 20:39:16 Kimberley Oakes [facility] POCT TEST 2023-10-03 15:37:00 Fanny Vital [facility] GARDASIL 9 (HPV 9V) VACCINE 2023-09-18 19:55:18 Kimberley Oakes [facility] POCT TEST 2023-09-18 19:35:00 Bonny Jeong [facility] Encounters Start Date/Time End Date/Time Encounter Type Admission Type Attending Clinicians Care Facility Care Department Encounter ID Source 2025-07-01 04:47:45 Outpatient P [facility] JACKIE [id number] [facility] 2025-05-08 03:18:31 Outpatient X [facility] JACKIE [id number] [facility] 2025-08-29 10:39:00 2025-08-31 16:36:00 Hospital Encounter P BALDEMAR ARRINGTON COREY [facility] JACKIE [id number] [facility] 2025-08-29 18:07:00 2025-08-30 12:45:00 Anesthesia Event ShaSharlene fong Craig Davidson [facility] 1.2.840.114 350.1.13.10 4.2.7.2.686 [id number] [facility] 2025-08-28 19:07:00 2025-08-28 23:42:00 Hospital Encounter Marshall YOUNG, ZORA YOUNG, ZORA [facility] JACKIE [id number] [facility] 2025-08-27 14:45:00 2025-08-27 14:55:52 Routine Visit R Kimberley Oakes [facility] MOLD CAR [facility] MATERNAL & CHILD [facility] 1.2.840.114 350.1.13.10 4.2.7.2.686 [id number] 107 [id number] [facility] 2025-08-26 00:00:00 2025-08-26 10:05:54 Telephone Kimberley Oakes [facility] MOLD [facility] & CHILD [facility] 1.2.840.114 350.1.13.10 4.2.7.2.686 [id number] 107 [id number] [facility] 2025-08-20 15:00:00 2025-08-20 15:43:36 Routine Visit R Kimberley Oakes [facility] MOLD [facility] & CHILD [facility] 1.2.840.114 350.1.13.10 4.2.7.2.686 [id number] 107 [id number] [facility] 2025-08-18 00:00:00 2025-08-18 08:36:55 Telephone Kimberley Oakes [facility] MOLD [facility] & CHILD [facility] 1.2.840.114 350.1.13.10 4.2.7.2.686 [id number] 107 [id number] [facility] 2025-08-13 14:45:00 2025-08-13 14:45:00 Outpatient R HEIDY VITAL [facility] [id number] [facility] 2025-08-13 13:45:00 2025-08-13 14:21:08 Routine Visit R MAME BRICEÑO [facility] MOLD [facility] & CHILD [facility] 1..114 350.1.13.10 4.2.7.2.686 [id number] 107 [id number] [facility] 2025-07-07 00:00:00 2025-08-09 18:56:08 Patient Secure Msg Doctor Unassigned, [place] Doctor Unassigned, [place] [facility] ([facility]) 1..114 350.1.13.10 4.2.7.2.686 [id number] [facility] 2025-08-06 13:00:00 2025-08-06 14:50:35 Routine Visit R HEIDY VITAL [facility] MOLD [facility] & CHILD [facility] 1..114 350.1.13.10 4.2.7.2.686 [id number] 107 [id number] [facility] 2025-08-06 02:25:00 2025-08-06 04:25:00 Emergency X YOUNG, ZORA YOUNG, ZORA [facility] JACKIE [id number] [facility] 2025-08-05 16:37:00 2025-08-05 20:43:00 Emergency X APRIL, SUMA CHEN, SUMA [facility] ERT [id number] [facility] 2025-08-05 00:00:00 2025-08-05 14:37:28 Telephone Heidy Vital [facility] MOLD [facility] & CHILD [facility] 1..114 350.1.13.10 4.2.7.2.686 [id number] 107 [id number] [facility] 2025-07-22 09:30:00 2025-07-22 09:45:00 Routine Visit R Kimberley Oakes [facility] MOLD [facility] & CHILD [facility] 1.2.840.114 350.1.13.10 4.2.7.2.686 [id number] 107 [id number] [facility] 2025-07-10 00:00:00 2025-07-11 11:02:48 Telephone SeniaHeidy thomas [facility] MOLD [facility] & CHILD [facility] 1.2.840.114 350.1.13.10 4.2.7.2.686 [id number] 107 [id number] [facility] 2025-07-11 00:00:00 2025-07-11 06:34:30 Abstract SeniaFanny thomasnda Justus [facility] MOLD CAR [facility] CHILD [facility] 1.2.840.114 350.1.13.10 4.2.7.2.686 [id number] 107 [id number] [facility] 2025-07-08 09:00:00 2025-07-08 09:17:58 Routine Visit R Heidy Vital [facility] MOLD CAR [facility] CHILD [facility] 1.2.840.114 350.1.13.10 4.2.7.2.686 [id number] 107 [id number] [facility] 2025-07-08 08:00:00 2025-07-08 09:17:54 Firer Marine Visit R Mario Camacho Gayle [facility] MOLD [facility] & CHILD [facility] 1.2.840.114 350.1.13.10 4.2.7.2.686 [id number] [facility] 2025-07-01 02:30:00 2025-07-01 04:47:00 Hospital Encounter P [facility]ABELLA [facility] [id number] [facility] 2025-06-27 06:45:00 2025-06-27 07:29:12 Routine Visit R Heidy Vital [facility] MOLD [facility] & CHILD [facility] 1.2.840.114 350.1.13.10 4.2.7.2.686 [id number] 107 [id number] [facility] 2025-06-26 14:00:00 2025-06-26 14:49:05 Nurse Visit R Visit, [facility] Nurse [facility]idy [facility] MOLD [facility] & CHILD [facility] 1.2.840.114 350.1.13.10 4.2.7.2.686 [id number] 107 [id number] [facility] 2025-06-26 00:00:00 2025-06-26 11:34:50 Telephone Kimberley Oakes [facility] MOLD [facility] & CHILD [facility] 1.2.840.114 350.1.13.10 4.2.7.2.686 [id number] 107 [id number] [facility] 2025-06-17 15:30:00 2025-06-17 16:20:53 Routine Visit R Heidy Vital [facility] MOLD CAR [facility] CHILD [facility] 1.2.840.114 350.1.13.10 4.2.7.2.686 [id number] 107 [id number] [facility] 2025-06-03 10:30:00 2025-06-03 11:21:31 Routine Visit R HEIDY VITAL [facility] 1.2.840.114 350.1.13.10 4.2.7.2.686 [id number] 107 [id number] [facility] 2025-05-28 00:00:00 2025-05-28 07:46:38 Abstract Heidy Vital [facility] MOLD CAR [facility] CHILD [facility] 1.2.840.114 350.1.13.10 4.2.7.2.686 [id number] 107 [id number] [facility] 2025-05-27 09:15:00 2025-05-27 11:16:14 Firer Marine Visit R Doug, Christian-Ruby Leigh [facility] MOLD CAR [facility] MATERNAL & CHILD [facility] 1.2.840.114 350.1.13.10 4.2.7.2.686 [id number] [facility] 2025-05-20 00:00:00 2025-05-20 15:47:58 Telephone Heidy Vital [facility] MOLD [facility] & CHILD [facility] 1.2.840.114 350.1.13.10 4.2.7.2.686 [id number] 107 [id number] [facility] 2025-05-12 00:00:00 2025-05-12 16:07:58 Telephone Heidy Vital [facility] MOLD CAR [facility] CHILD [facility] 1.2.840.114 350.1.13.10 4.2.7.2.686 [id number] 107 [id number] [facility] 2025-05-08 14:45:00 2025-05-08 15:30:51 Routine Visit R HEIDY VITAL [facility] MOLD [facility] & CHILD [facility] 1.2.840.114 350.1.13.10 4.2.7.2.686 [id number] 107 [id number] [facility] 2025-05-08 00:54:00 2025-05-08 02:42:00 Emergency X ADUM, ERIKA ADUM, ERIKA [facility] JACKIE [id number] [facility] 2025-05-06 14:00:00 2025-05-06 14:58:00 Routine Visit R Heidy Vital [facility] MOLD [facility] & CHILD [facility] 1.2.840.114 350.1.13.10 4.2.7.2.686 [id number] 107 [id number] [facility] 2025-04-28 00:00:00 2025-04-28 08:12:07 Abstract Heidy Vital [facility] MOLD [facility] & CHILD [facility] 1..840.114 350.1.13.10 4.2.7.2.686 [id number] 107 [id number] [facility] 2025-04-24 14:15:00 2025-04-24 15:08:21 Firer Marine Visit MIKIE GREGG SHANNON [facility] MOLD [facility] & CHILD [facility] 1..840.114 350.1.13.10 4.2.7.2.686 [id number] [facility] 2025-04-24 14:15:00 2025-04-24 14:15:00 Outpatient R [facility] [id number] [facility] 2025-04-09 00:00:00 2025-04-09 14:51:40 Telephone Kimberley Oakes [facility] MOLD [facility] & CHILD [facility] 1..840.114 350.1.13.10 4.2.7.2.686 [id number] 107 [id number] [facility] 2025-04-07 13:15:00 2025-04-07 14:03:08 Outpatient R KIMBERLEY OAKES [facility] [id number] [facility] 2025-04-07 13:15:00 2025-04-07 14:03:08 Routine Visit Kimberley Oakes [facility] MOLD [facility] & CHILD [facility] 1..840.114 350.1.13.10 4.2.7.2.686 [id number] 107 [id number] [facility] 2025-03-25 14:45:00 2025-03-25 15:22:11 Outpatient R HEIDY VITAL [facility] [id number] [facility] 2025-03-25 14:45:00 2025-03-25 15:22:11 Routine Visit Heidy Vital [facility] MOLD [facility] & CHILD [facility] 1.2.840.114 350.1.13.10 4.2.7.2.686 [id number] 107 [id number] [facility] 2025-03-14 00:00:00 2025-03-14 12:54:05 Telephone Heidy Vital [facility] MOLD CAR [facility] & CHILD [facility] 1.2.840.114 350.1.13.10 4.2.7.2.686 [id number] 107 [id number] [facility] 2025-03-12 14:45:00 2025-03-12 15:22:10 Outpatient R HEIDY VITAL [facility] [id number] [facility] 2025-03-12 14:45:00 2025-03-12 15:22:10 Routine Visit Heidy Vital DC[facility] MOLD CAR [facility] CHILD [facility] 1.2.840.114 350.1.13.10 4.2.7.2.686 [id number] 107 [id number] [facility] 2025-03-12 00:00:00 2025-03-12 08:35:29 Telephone Heidy Vital [facility] MOLD CAR [facility] 1.2.840.114 350.1.13.10 4.2.7.2.686 [id number] 107 [id number] [facility] 2025-03-10 00:00:00 2025-03-11 02:05:30 Orders Only Doctor Unassigned, [place] Doctor Unassigned, [place] [facility] ([facility]) 1.2.840.114 350.1.13.10 4.2.7.2.686 [id number] [facility] 2025-03-05 00:00:00 2025-03-06 02:04:24 Orders Only Doctor Unassigned, [place] Doctor Unassigned, [place] [facility] ([place]) 1.2.840.114 350.1.13.10 4.2.7.2.686 [id number] [facility] 2025-02-25 15:30:00 2025-02-25 16:20:38 Outpatient HEIDY HOLMAN [facility] [id number] [facility] 2025-02-25 15:30:00 2025-02-25 16:20:38 Routine Visit HEIDY HOLMAN [facility] MOLD CAR [facility] & CHILD [facility] 1.840.114 350.1.13.10 4.2.7.2.686 [id number] 107 [id number] [facility] 2025-02-25 12:30:00 2025-02-25 12:30:00 Outpatient HEIDY HOLMAN [facility] [id number] [facility] 2025-02-12 15:00:00 2025-02-12 15:53:34 Outpatient LADONNA DE LA FUENTE CHASEY [facility] [id number] [facility] 2025-02-12 15:00:00 2025-02-12 15:53:34 Firer Marine Visit Ultrasound, Ladonna Richards [facility] 1..840.114 350.1.13.10 4.2.7.2.686 [id number] [facility] 2025-01-30 12:30:00 2025-01-30 12:30:00 Outpatient HEIDY HOLMAN [facility] [id number] [facility] 2025-01-30 12:30:00 2025-01-30 12:30:00 Outpatient HEIDY HOLMAN [facility] [id number] [facility] 2025-01-28 15:00:00 2025-01-28 15:29:50 Outpatient HEIDY HOLMAN [facility] [id number] [facility] 2025-01-28 15:00:00 2025-01-28 15:29:50 Routine Visit Heidy Vital [facility] MOLD [facility] & CHILD [facility] 1..840.114 350.1.13.10 4.2.7.2.686 [id number] 107 [id number] [facility] 2025-01-24 11:00:00 2025-01-24 11:30:00 Office Visit Katlin Ward [facility] 1..840.114 350.1.13.10 4.2.7.2.686 [id number] [facility] 2025-01-24 11:00:00 2025-01-24 11:00:00 Outpatient R KATLIN WARD [facility] [id number] [facility] 2025-01-23 16:25:00 2025-01-23 20:38:00 Emergency X SEBLE VALENZUELA [facility] ERT [id number] [facility] 2025-01-23 16:25:00 2025-01-23 20:38:00 Emergency X SEBLE VALENZUELA [facility] ERT [id number] [facility] 2025-01-23 00:00:00 2025-01-23 14:54:04 Telephone Heidy Vital [facility] MOLD [facility] & CHILD [facility] 1..840.114 350.1.13.10 4.2.7.2.686 [id number] 107 [id number] [facility] 2025-01-21 13:40:00 2025-01-21 16:03:00 Emergency X DAYANA JESSICA ERICCA [facility] ERT [id number] [facility] 2025-01-21 13:40:00 2025-01-21 16:03:00 Emergency X DYAANA JESSICA ERICCA [facility] ERT [id number] [facility] 2025-01-21 00:00:00 2025-01-21 09:55:06 Telephone Hediy Green [facility] MOLD CAR [facility] MATERNAL & CHILD [facility] 1.2.840.114 350.1.13.10 4.2.7.2.686 [id number] 107 [id number] [facility] 2025-01-21 00:00:00 2025-01-21 08:53:51 Telephone Heidy Vital [facility] MOLD [facility] & CHILD [facility] 1.2.840.114 350.1.13.10 4.2.7.2.686 [id number] 107 [id number] [facility] 2025-01-16 00:00:00 2025-01-16 16:56:49 Telephone Heidy Vital [facility] MOLD CAR [facility] & CHILD [facility] 1.2.840.114 350.1.13.10 4.2.7.2.686 [id number] 107 [id number] [facility] 2025-01-06 11:22:00 2025-01-06 14:07:00 [facility] [id number] [facility] 2025-01-06 11:22:00 2025-01-06 14:07:00 Emergency X SARAY BAEZ SANDRA [facility] ERT [id number] [facility] 2025-01-06 00:00:00 2025-01-06 08:29:29 Telephone Heidy Vital [facility] MOLD [facility] & CHILD [facility] 1.2.840.114 350.1.13.10 4.2.7.2.686 [id number] 107 [id number] [facility] 2025-01-02 12:45:00 2025-01-02 13:33:07 Outpatient R HEIDY VITAL [facility] [id number] [facility] 2025-01-02 12:45:00 2025-01-02 13:33:07 Initial Visit Heidy Vital [facility] MOLD CAR [facility] MATERNAL & CHILD [facility] 1.840.114 350.1.13.10 4.2.7.2.686 [id number] 107 [id number] [facility] 2024-06-25 13:30:00 2024-06-25 13:30:00 Outpatient R KIMBERLEY OAKES [facility] [id number] [facility] 2024-03-26 14:30:00 2024-03-26 14:30:00 Outpatient R [facility] [id number] [facility] 2024-03-26 13:15:00 2024-03-26 13:30:00 Nurse Visit Nurse, Christian Rmchp Rgv Cprit Obgyn Kimberley Oakes [facility] MOLD CAR [facility] & CHILD [facility] 1.840.114 350.1.13.10 4.2.7.2.686 [id number] 107 [id number] [facility] 2024-03-26 13:15:00 2024-03-26 13:01:57 Outpatient R KIMBERLEY OAKES [facility] [id number] [facility] 2024-03-26 12:30:00 2024-03-26 13:01:51 Outpatient R KIMBERLEY OAKES [facility] [id number] [facility] 2024-03-26 12:30:00 2024-03-26 13:01:51 Office Visit Kimberley Oakes [facility] MOLD CAR [facility] MATERNAL & CHILD [facility] 1.0.114 350.1.13.10 4.2.7.2.686 [id number] 107 [id number] [facility] 2024-02-29 00:00:00 2024-02-29 00:00:00 Telephone Guillermina Abebe [facility] 1.0.114 350.1.13.10 4.2.7.2.686 [id number] [facility] 2024-02-26 00:00:00 2024-02-26 00:00:00 Telephone Guillermina Abebe [facility] 1..840.114 350.1.13.10 4.2.7.2.686 [id number] [facility] 2024-02-16 10:45:00 2024-02-16 11:11:46 Outpatient NIMISHA VAZQUEZ [facility] [id number] [facility] 2024-02-16 10:45:00 2024-02-16 11:11:46 Office Visit Guillermina Abebe Janice May [facility] 1..840.114 350.1.13.10 4.2.7.2.686 [id number] [facility] 2024-02-09 10:45:00 2024-02-09 10:45:00 Outpatient R [facility] [id number] [facility] 2024-01-09 09:11:18 2024-01-09 09:11:18 Outpatient [facility] [id number] Elijah Santos 2024-01-05 08:56:41 2024-01-05 08:56:41 Outpatient [facility] [id number] Elijah Santos 2024-01-04 10:00:00 2024-01-04 11:38:15 Outpatient MICHAEL PETERS BRENT [facility] [id number] [facility] 2024-01-04 10:00:00 2024-01-04 11:38:15 Office Visit Guillermina Abebe Brent C [facility] 1.840.114 350.1.13.10 4.2.7.2.686 [id number] [facility] 2023-12-26 09:30:00 2023-12-26 09:30:00 Outpatient R KIMBERLEY OAKES [facility] [id number] [facility] 2023-12-26 09:30:00 2023-12-26 09:30:00 Nurse Visit Visit, Kimberley Avery [facility] MOLD CAR [facility] CHILD [facility] 1..840.114 350.1.13.10 4.2.7.2.686 [id number] 107 [id number] [facility] 2023-12-21 16:46:18 2023-12-21 16:46:18 Outpatient SFA SFA [id number] Elijah Santos 2023-11-01 14:45:00 2023-11-01 15:00:00 Nurse Visit Nurse, Christian Delgadillo Rgv Cprit Obgyn Kimberley Oakes [facility] 1..840.114 350.1.13.10 4.2.7.2.686 [id number] 107 [id number] [facility] 2023-11-01 13:30:00 2023-11-01 14:59:42 Outpatient R KIMBERLEY OAKES [facility] [id number] [facility] 2023-11-01 13:30:00 2023-11-01 14:59:42 Nurse Visit Visit, Kimberley Avery [facility] 1..840.114 350.1.13.10 4.2.7.2.686 [id number] 107 [id number] [facility] 2023-11-01 14:45:00 2023-11-01 14:43:09 Outpatient R KIMBERLEY OAKES [facility] [id number] [facility] 2023-11-01 13:30:00 2023-11-01 13:30:00 Outpatient R HEIDY VITAL [facility] [id number] [facility] 2023-10-24 14:30:00 2023-10-24 14:30:00 Outpatient R KIMBERLEY OAKES [facility] [id number] [facility] 2023-10-03 09:45:00 2023-10-03 10:00:54 Outpatient R HEIDY VITAL [facility] [id number] [facility] 2023-10-03 09:45:00 2023-10-03 10:00:54 Office Visit Heidy Vital [facility] 1..840.114 350.1.13.10 4.2.7.2.686 [id number] 107 [id number] [facility] 2023-09-18 15:00:00 2023-09-18 16:11:14 Outpatient KIMBERLEY BRUMFIELD [facility] [id number] [facility] 2023-09-18 14:15:00 2023-09-18 16:11:06 Office Visit Provider, Bonny Acevedo [facility] 1..840.114 350.1.13.10 4.2.7.2.686 [id number] 107 [id number] [facility] 2023-09-18 14:15:00 2023-09-18 16:11:06 Outpatient BONNY MEAD [facility] [id number] [facility] 2023-09-18 15:00:00 2023-09-18 15:15:00 Nurse Visit Nurse, Christian Delgadillo Rgv Cprit [facility]gyn [facility] [facility] 1..840.114 [id number] [facility] Results Test Description Test Time Test Comments Results Result Co mments Source [facility] Cord [id number] 16:51:38* Test Item Value Reference Range Interpretation Comme nts VENOUS BASE EXCESS, CORD (te st code = 2186747384) -7.1 mEq/L VENOUS PH, CORD (test code = 3138203084) 7.28 7.25-7.45 VENOUS PC02, CORD (test code = 6070833005) 42 27-49 VENOUS PO2, CORD (test code = 4873590783) 30 17-41 VENOUS BICARBONATE, CORD (te st code = 4155552108) 19 12-29 QUES [facility] TexasArter[facility] Cord [id number] 16:51:33* Test Item Value Reference Range Interpretation Comme nts BASE EXCESS, CORD (test code = 7423512615) -6.9 mEq/L AC PH, CORD (test code = 5947146200) 7.21 7.18-7.38 PC02, CORD (test code = 6887216317) 55 32-66 PO2, CORD (test code = 4383268725) 32 10-30 H BICARBONATE, CORD (test code = 3651602079) 22 17-27 Lab Interpretation (test cod e = 00682-6) Abnormal [facility] TexasSyphilis IgG/[id number] 14:47:36* Test Item Value Reference Range Interpretation Comme nts Syphilis IgG/IgM (test code = 00593-9) Nonreactive Nonreactive Syphilis Serology Interpretation (test code = 28185-2) No serologic evidence of syphilis. If recent exposure is suspected, retest in 2 to 4 weeks. VERONICA (test code = VERONICA) ? [facility] Texas[facility] Neuraxial [id number] 23:19:00 Adalid Self MD ? ? 08/29/2025 ?6:20 PM Central Neuraxial Block Date/Time: 08/29/2025 6:19PM Performed by: Viviane Hawthorne MDAuthorized by: Gregory Strickland MD ?Patient Location: OBEnd Time: 08/29/2025 6:19 PMReason for Block: OB request, Patient request, Labor analgesia, Surgical anesthesia and Post-op pain managementStaff: ?Anesthesiologist: Gregory Strickland MD ?Resident/FIRE ALARM TECHNICIAN: Viviane Hawthorne MD ?Performed by: resident/CRNAPreanesthetic Checklist: patient identified, IV checked, risks and benefits explained, monitors and equipment checked, timeout performed, pre-op evaluation, site marked and anesthesia consentProcedure: ?Type of Neuraxial: Epidural ?Epidural Description: 1st attempt ? Sterility Prep cap, drape, gloves, hand hygiene and mask ?Patient Position: sitting ?Prep: Betadine and patient draped ? ?Monitoring: heart rate, continuous pulse ox, heart rate / toco and NIBP ?Location: lumbar (1-5) ?Lumbar: L3-L4 ?Approach: midline ? ?Technique: catheter and CHIKA saline ?Guidance with: landmark technique}Epidural/Spinal [place] and/or Catheter: ?Epidural/Spinal Kit: BBraun ?Needle Type: Tuohy ?Needle Gauge: 17 G ?Needle Length: 3.5 in(8.89 cm) ?Needle Insertion Depth: 6 ?Catheter Type: multiport ? ?Catheter Size: 19 G ? ?Catheter at Skin Depth: 12 ?Number of Attempts: 1 ?Test Dose: negative and lidocaine 1.5% with epinephrine 1-to-200,000 ? ?Dose: 3 cc ? ?Catheter Securement Method: surgical tape and TegadermAssessment: ?Block Outcome: a full evaluation is pending, patient comfortable and patient tolerated procedure well ? ?Procedure Assessment: patient tolerated procedure well with no complicationsNotes: ? Patient identifie d; pre-procedure verification.Patient prepped and draped in standard sterile fashion using betadinex 3Subcutaneous infiltration with 1% Lidocaine CHIKA at 6 cm; catheter secured at 12 cm with mastisol, tegaderm x2 and 3-inch clear tape.Aspiration test negative x 3Test dose negativePatient tolerated procedure well with no immediate complications Epidural expectations; PCEA explained and fall precautions given.[facility] TexasSGOT (Aspartate Amino Transfer)2025-06-18 04:33:49* Test Item Value Reference Range Interpretation Comme [facility] AST(SGOT) (test code = 7885272989) 24 U/L 13-40 Lab Interpretation (test cod e = 19431-6) Normal [facility] TexasAlanine Amino Transferase([id number] 04:33:49* Test Item Value Reference Range Interpretation Comme nts ALTv (test code = 1742-6) 21 U/L 5-35 Lab Interpretation (test cod e = 01044-4) Normal [facility] TexasPOCT URINALYSIS W SPECIFIC [id number] 19:53:00* Test Item Value Reference Range Interpretation Comme nts POCT U SP GRAV (test code = 3255) . 1.005-1.025 POCT PH U (test code = 3254) 6 mg/dl 5-8 POCT U LEUK EST (test code = 3263) Trace Negative - Negative POCT U NIT (test code = 3262) Neg Negative - Negati ve POCT U PROT (test code = 3259) Trace Negative - Negat michael POCT U GLU (test code = 3256) Nml Negative - Negati ve POCT U KETONE (test code = 3258) None Negative - Neg ative POCT U UROBILI (test code = 3260) . 0.2-1 POCT U BILI (test code = 3261) . Negative - Negat michael POCT U BLD (test code = 3257) Trace Negative - Negati ve POCT U COLOR (test code = 3266) . POCT U APPEAR (test code = 3267) . [facility] URIN[facility] W SPECIFIC [id number] 19:30:00* Test Item Value Reference Range Interpretation Comme nts POCT U SP GRAV (test code = 3255) . 1.005-1.025 POCT PH U (test code = 3254) 5 mg/dl 5-8 POCT U LEUK EST (test code = 3263) Trace Negative - Negative POCT U NIT (test code = 3262) Neg Negative - Negati ve POCT U PROT (test code = 3259) Trace Negative - Negat michael POCT U GLU (test code = 3256) Nml Negative - Negati ve POCT U KETONE (test code = 3258) Neg Negative - Neg ative POCT U UROBILI (test code = 3260) . 0.2-1 POCT U BILI (test code = 3261) . Negative - Negat michael POCT U BLD (test code = 3257) Trace Negative - Negati ve POCT U COLOR (test code = 3266) . POCT U APPEAR (test code = 3267) . [facility] URINALYSIS W SPECIFIC [id number] 18:11:00* Test Item Value Reference Range Interpretation Comme nts POCT U SP GRAV (test code = 3255) . 1.005-1.025 POCT PH U (test code = 3254) 5 mg/dl 5-8 POCT U LEUK EST (test code = 3263) Trace Negative - Negative POCT U NIT (test code = 3262) Neg Negative - Negati ve POCT U PROT (test code = 3259) Trace Negative - Negat michael POCT U GLU (test code = 3256) Nml Negative - Negati ve POCT U KETONE (test code = 3258) None Negative - Neg ative POCT U UROBILI (test code = 3260) . 0.2-1 POCT U BILI (test code = 3261) . Negative - Negat michael POCT U BLD (test code = 3257) Trace Negative - Negati ve POCT U COLOR (test code = 3266) . POCT U APPEAR (test code = 3267) . [facility] URINALYSIS W SPECIFIC [id number] 17:57:00* Test Item Value Reference Range Interpretation Comme nts POCT U SP GRAV (test code = 3255) . 1.005-1.025 POCT PH U (test code = 3254) . 5-8 POCT U LEUK EST (test code = 3263) . Negative - N egative POCT U NIT (test code = 3262) . Negative - Negati ve POCT U PROT (test code = 3259) Trace Negative - Negat michael POCT U GLU (test code = 3256) Nml Negative - Negati ve POCT U KETONE (test code = 3258) . Negative - Neg ative POCT U UROBILI (test code = 3260) . 0.2-1 POCT U BILI (test code = 3261) . Negative - Negat michael POCT U BLD (test code = 3257) . Negative - Negati ve POCT U COLOR (test code = 3266) . POCT U APPEAR (test code = 3267) . [facility] URINALYSIS W SPECIFIC [id number] 19:38:00* Test Item Value Reference Range Interpretation Comme nts POCT U SP GRAV (test code = 3255) . 1.005-1.025 POCT PH U (test code = 3254) 6 mg/dl 5-8 POCT U LEUK EST (test code = 3263) Neg Negative - Negative POCT U NIT (test code = 3262) Neg Negative - Negati ve POCT U PROT (test code = 3259) Trace Negative - Negat michael POCT U GLU (test code = 3256) Nml Negative - Negati ve POCT U KETONE (test code = 3258) Neg Negative - Neg ative POCT U UROBILI (test code = 3260) . 0.2-1 POCT U BILI (test code = 3261) . Negative - Negat michael POCT U BLD (test code = 3257) Trace Negative - Negati ve POCT U COLOR (test code = 3266) . POCT U APPEAR (test code = 3267) . [facility] URINALYSIS W SPECIFIC [id number] 19:53:00* Test Item Value Reference Range Interpretation Comme nts POCT U SP GRAV (test code = 3255) . 1.005-1.025 POCT PH U (test code = 3254) 6 mg/dl 5-8 POCT U LEUK EST (test code = 3263) Neg Negative - Negative POCT U NIT (test code = 3262) Neg Negative - Negati ve POCT U PROT (test code = 3259) Trace Negative - Negat michael POCT U GLU (test code = 3256) Nml Negative - Negati ve POCT U KETONE (test code = 3258) Neg Negative - Neg ative POCT U UROBILI (test code = 3260) . 0.2-1 POCT U BILI (test code = 3261) . Negative - Negat michael POCT U BLD (test code = 3257) Trace Negative - Negati ve POCT U COLOR (test code = 3266) . POCT U APPEAR (test code = 3267) . [facility] - NON-INVASIVE TEST RESULTS 2025-03-10 21:51:52Ordered by an unspecified provider.[facility] - NON-INVASIVE TEST [id number] 19:50:12 Ordered by an unspecified provider.[facility] URINALYSIS W SPECIFIC [id number] 20:54:00* Test Item Value Reference Range Interpretation Comme nts POCT U SP GRAV (test code = 3255) . 1.005-1.025 POCT PH U (test code = 3254) 5 mg/dl 5-8 POCT U LEUK EST (test code = 3263) Trace Negative - Negative POCT U NIT (test code = 3262) Neg Negative - Negati ve POCT U PROT (test code = 3259) Trace Negative - Negat michael POCT U GLU (test code = 3256) Nml Negative - Negati ve POCT U KETONE (test code = 3258) Neg Negative - Neg ative POCT U UROBILI (test code = 3260) . 0.2-1 POCT U BILI (test code = 3261) . Negative - Negat michael POCT U BLD (test code = 3257) Trace Negative - Negati ve POCT U COLOR (test code = 3266) . POCT U APPEAR (test code = 3267) . [facility] URINALYSIS W SPECIFIC [id number] 20:51:00* Test Item Value Reference Range Interpretation Comme nts POCT U SP GRAV (test code = 3255) . 1.005-1.025 POCT PH U (test code = 3254) 7 mg/dl 5-8 POCT U LEUK EST (test code = 3263) Trace Negative - Negative POCT U NIT (test code = 3262) Neg Negative - Negati ve POCT U PROT (test code = 3259) Trace Negative - Negat michael POCT U GLU (test code = 3256) Nml Negative - Negati ve POCT U KETONE (test code = 3258) None Negative - Neg ative POCT U UROBILI (test code = 3260) . 0.2-1 POCT U BILI (test code = 3261) . Negative - Negat michael POCT U BLD (test code = 3257) Trace Negative - Negati ve POCT U COLOR (test code = 3266) . POCT U APPEAR (test code = 3267) [facility] BETA HCG [id number] 21:25:45* Test Item Value Reference Range Interpretation Comme nts BETA HCG (test code = 2327014314) 888106.00 See_Comment [Automated messa ge] The system which generated this result transmitted reference range: Non- female and male patients: <5 mIU/mL. The reference range was not used to interpret this result as normal/abnormal. VERONICA (test code = VERONICA) Gestational Age ?Range (mIU/mL) 1-10 ?Weeks ?[id number] Weeks ?68686-49955466-16 Weeks ?5472-98877022-87 Weeks ?1531-597806 Biotin has been reported to cause a negative bias, interpret results relative to patient's use of biotin. [facility] WITH [id number] 20:29:24* Test Item Value Reference Range Interpretation Comme nts WBC (test code = 6690-2) 9.02 4.30-11.10 RBC (test code = 789-8) 4.25 3.93-5.25 HGB (test code = 718-7) 12.0 g/dL 11.6-15.0 HCT (test code = 4544-3) 36.3 % 35.7-45.2 MCV (test code = 787-2) 85.4 fL 80.6-95.5 MCH (test code = 785-6) 28.2 pg 25.9-32.8 MCHC (test code = 786-4) 33.1 g/dL 31.6-35.1 RDW-SD (test code = 96022-0) 38.3 fL 39.0-49.9 L RDW-CV (test code = 788-0) 12.3 % 12.0-15.5 PLT (test code = 777-3) 308 166-358 MPV (test code = 73357-2) 9.4 fL 9.5-12.9 L NRBC/100 WBC (test code = 0989788311) 0.0 0.0-10.0 NRBC x10^3 (test code = 7631556929) See_Comment [Automated messa ge] The system which generated this result transmitted reference range: 10*3/?L. The reference range was not used to interpret this result as normal/abnormal. GRAN MAT (NEUT) % (test code = 770-8) 78.2 % IMM GRAN % (test code = 9239635555) 0.60 % LYMPH % (test code = 736-9) 13.3 % MONO % (test code = 5905-5) 7.6 % EOS % (test code = 713-8) 0.2 % BASO % (test code = 706-2) 0.1 % GRAN MAT x10^3(ANC) (test code = 0546892398) 7.05 10*3/uL 1.88-7.09 IMM GRAN x10^3 (test code = 3335926652) 0.05 10*3/uL 0.00-0.06 LYMPH x10^3 (test code = 731-0) 1.20 10*3/uL 1.32-3.29 L MONO x10^3 (test code = 742-7) 0.69 10*3/uL 0.33-0.92 EOS x10^3 (test code = 711-2) 0.03-0.39 L BASO x10^3 (test code = 704-7) 0.01-0.07 Lab Interpretation (test code = 37726-9) Abnormal [facility] first trimester less than 14 weeks with [id number] 19:12:45EXAM: US FIRST TRIMESTER LESS THAN 14 WEEKS WITH TRANSVAGINAL HISTORY: 34 years-old Female; Provided indication: pelvic pain, ,eval for ectopic . LMP = 11/30/2024. Beta-hCG: A beta-hCG has not been collected at the time of dictation. Pointof care test from 01/02/2025 is positive. G/P: 01/25. TECHNIQUE: Survey transabdominal and transvaginal ultrasound imaging andcolor Doppler evaluation of the pelvis was performed. M-mode was used toevaluate the heart. Representativeimages were obtained. COMPARISON: None FINDINGS: Uterus: The uterus measures 8.3 x 4.4 x 6.1 cm. Anintrauterine gestational sac ispresent. Anechoic structure measuring 6 mm on the proximal cervix mayrepresent a nabothian cyst. The mean sac diameter measures 0.9 cm. The pole is visualized, withthe crown-rump length measuring 0.2 cm. heart tones were notappreciated. Right Adnexa:Ovary:The right ovary measures 3.1 x 2.1 x 2.8 cm with a volume of 9.5 ml.The right ovary is unremarkable. Left Adnexa:Ovary: The left ovary measures 2.4 x 1.4 x 2.0 cm with a volume of 3.4 ml.The left ovary is unremarkable. Cul-de-sac: No free fluid is present.[facility] BETA HCG ASSAY 2025-01-06 18:56:05* Test Item Value Reference Range Interpretation Comme [facility] BETA HCG (test code = 0869579647) 14799.00 See_Comment [Automated [employer]] The system which generated this result transmitted reference range: Non- female and male patients: <5 mIU/mL. The reference range was not used to interpret this result as normal/abnormal. VERONICA (test code = VERONICA) Gestational Age ?Range (mIU/mL) 1-10 ?Weeks ?21-27305278-60 Weeks ?22844-12337012-70 Weeks ?6343-67976721-80 Weeks ?9431-583952 Biotin has been reported to cause a negative bias, interpret results relative to patient's use of biotin. [facility] METABOLIC PANEL (NA, K, CL, CO2, GLUCOSE, BUN, CREATININE, CA)2025-01-06 18:36:52* Test Item Value Reference Range Interpretation Comme nts NA (test code = 4492131197) 138 mmol/L 135-145 K (test code = 8843741165) 3.9 mmol/L 3.5-5.0 CL (test code = 9820530200) 103 mmol/L 98-108 CO2 TOTAL (test code = 7078621597) 26 mmol/L 23-31 AGAP (test code = 4869571992) 9 2-16 BUN (test code = 2599599731) 9 mg/dL 7-23 GLUCOSE (test code = 7818361021) 142 mg/dL 70-110 H CREATININE (test code = 2160-0) 0.68 mg/dL 0.50-1.04 CALCIUM (test code = 3660144312) 9.6 mg/dL 8.6-10.6 eGFR (test code = 77792-9) 118.8 mL/min/1.73m2 CKD-EPI eGFR (2020). Assuming creatinine has been stable day-to-day for at least three months, the eGFR indicates Category G1 (>= 90 mL/min/1.73 m2) Lab Interpretation (test code = 70895-2) Abnormal [facility] WITH [id number] 18:24:29* Test Item Value Reference Range Interpretation Comme nts WBC (test code = 6690-2) 7.59 4.30-11.10 RBC (test code = 789-8) 4.63 3.93-5.25 HGB (test code = 718-7) 13.1 g/dL 11.6-15.0 HCT (test code = 4544-3) 39.3 % 35.7-45.2 MCV (test code = 787-2) 84.9 fL 80.6-95.5 MCH (test code = 785-6) 28.3 pg 25.9-32.8 MCHC (test code = 786-4) 33.3 g/dL 31.6-35.1 RDW-SD (test code = 84131-0) 37.5 fL 39.0-49.9 L RDW-CV (test code = 788-0) 12.2 % 12.0-15.5 PLT (test code = 777-3) 328 166-358 MPV (test code = 41057-4) 9.3 fL 9.5-12.9 L NRBC/100 WBC (test code = 8890321205) 0.0 0.0-10.0 NRBC x10^3 (test code = 5092051333) See_Comment [Automated [employer] ge] The system which generated this result transmitted reference range: 10*3/?L. The reference range was not used to interpret this result as normal/abnormal. GRAN MAT (NEUT) % (test code = 770-8) 75.9 % IMM GRAN % (test code = 0460973651) 0.40 % LYMPH % (test code = 736-9) 17.9 % MONO % (test code = 5905-5) 5.1 % EOS % (test code = 713-8) 0.3 % BASO % (test code = 706-2) 0.4 % GRAN MAT x10^3(ANC) (test code = 1270521366) 5.76 10*3/uL 1.88-7.09 IMM GRAN x10^3 (test code = 1722690361) 0.03 10*3/uL 0.00-0.06 LYMPH x10^3 (test code = 731-0) 1.36 10*3/uL 1.32-3.29 MONO x10^3 (test code = 742-7) 0.39 10*3/uL 0.33-0.92 EOS x10^3 (test code = 711-2) 0.03-0.39 L BASO x10^3 (test code = 704-7) 0.03 10*3/uL 0.01-0.07 Lab Interpretation (test code = 72099-4) [facility]normal [facility] [id number] 18:48:00* Test Item Value Reference Range Interpretation Comme nts POCT PREG (test code = 1605) Positive On board controls acceptable with C Line (test code = 3574) Yes POCT PREG LOT # (test code = 3575) POCT PREG TEST DATE ( test code = 3576) [facility] Ur[facility] w/o Specific [id number] 18:48:00* Test Item Value Reference Range Interpretation Comme nts POCT PH U (test code = 3254) 5 mg/dl 5-8 POCT U LEUK EST (test code = 3263) 1+ Negative - Negative POCT U NIT (test code = 3262) Neg Negative - Negati ve POCT U PROT (test code = 3259) Trace Negative - Negat michael POCT U GLU (test code = 3256) Nml Negative - Negati ve POCT U KETONE (test code = 3258) None Negative - Neg ative POCT U BLD (test code = 3257) Neg Negative - Negati ve [facility] [id number] 17:40:00* Test Item Value Reference Range Interpretation Comme nts POCT PREG (test code = 1605) Negative On board controls acceptable with C Line (test code = 3574) Yes POCT PREG LOT # (test code = 3575) POCT PREG TEST DATE ( test code = 3576) [id number] 17:40:00* Test Item Value Reference Range Interpretation Comme nts POCT PREG (test code = 1605) Negative On board controls acceptable with C Line (test code = 3574) Yes POCT PREG LOT # (test code = 3575) POCT PREG TEST DATE ( test code = 3576) [facility] PYLORI (BREATH)2024-01-10 14:56:22* Test Item Value Reference Range Interpretation Comme nts H. PYLORI (BREATH) (test code = 82825) NEGATIVE NEGATIVE UNLESS OTHER CAMP INDICATED, ALL TESTING PERFORMED AT [facility] [address] [place] [address] SUPERVISOR [employer] REPAIR: BASIA HDEZ M.D. CLIA NUMBER [id number] [facility] [place]. [id number] POCT [id number] 15:37:00* Test Item Value Reference Range Interpretation Comme nts POCT PREG (test code = 1605) Negative On board controls acceptable with C Line (test code = 3574) Yes POCT PREG LOT # (test code = 3575) POCT PREG TEST DATE ( test code = 3576) [facility] [id number] 15:37:00* Test Item Value Reference Range Interpretation Comme nts POCT PREG (test code = 1605) Negative On board controls acceptable with C Line (test code = 3574) Yes POCT PREG LOT # (test code = 3575) POCT PREG TEST DATE ( test code = 3576) [facility] [id number] 19:36:00* Test Item Value Reference Range Interpretation Comme nts POCT PREG (test code = 1605) Negative On board controls acceptable with C Line (test code = 3574) Yes POCT PREG LOT # (test code = 3575) POCT PREG TEST DATE ( test code = 3576) [facility] [id number] 19:36:00* Test Item Value Reference Range Interpretation Comme nts POCT PREG (test code = 1605) Negative On board controls acceptable with C Line (test code = 3574) Yes POCT PREG LOT # (test code = 3575) POCT PREG TEST DATE ( test code = 3576) [facility] [id number] 19:36:00* Test Item Value Reference Range Interpretation Comme nts POCT PREG (test code = 1605) Negative On board controls acceptable with C Line (test code = 3574) Yes POCT PREG LOT # (test code = 3575) POCT PREG TEST DATE ( test code = 3576) [facility]PO[facility] [id number] 19:36:00* Test Item Value Reference Range Interpretation Comme nts POCT PREG (test code = 1605) Negative On board controls acceptable with C Line (test code = 3574) Yes POCT PREG LOT # (test code = 3575) POCT PREG TEST DATE ( test code = 3576) [facility] Consult Notes Date/Time Note Provider Source 2025-08-31 09:52:21 Associated Order(s): CONSULT [employer] ELECTRICAL ENGINEER-ADULT Images from the original note were not included. Comments: positive edinburgh score of 10 CARE MANAGEMENT Care Coordinators/Social Workers/CM Specialists/Utilization Review/Patient Placement & Transfer Center 08/31/2025 9:52 AM SW spoke with patient in regards to consult via psychology physician [phone]. Pt told SW she remembers completing the assessment but says she currently feels happy. SW encouraged pt to follow up with physician if she starts to feel PPD signs/symptoms once she is home. Pt understood. Pt declined resources. Farnaz Drake LMSW [facility] Financial Professional [phone] [email or web address] Available Fri - Sun Farnaz Drake LMSW [facility] 2025-08-29 16:32:01 Associated Order(s): CONSULT PS PASTORAL CARE See previous note. The licensed staff mft remains available to provide pastoral care as needed. Christie Cat Pluck Separator II [facility] Pastoral Care Department [facility] - Health History and Physical Notes Date/Time Note Provider Source 2025-08-29 11:15:26 TRIAGE/ADMISSION HISTORY & PHYSICAL TRIAGE/ADMISSION DATE: 08/29/2025 11:15 AM OB ATTENDING IN TRIAGE AND/OR ON ADMISSION: BALDEMAR ARRINGTON IDENTIFYING DATA Jackie Rosado is 34 year old, /White, 38w6d, female with PRINCESS. Patient's last menstrual period was 11/30/2024. : 1990 Primary [facility] Care Clinic: [facility] CHIEF COMPLAINT IOL HISTORY OF PRESENT ILLNESS Jackie Rosado is a 34 year old at 38w6d who presents for IOL for suspected ICP. At this time patient reports minimal itching or discomfort. Patient denies vaginal bleeding, denies leakage of fluid, endorses contractions. Patient denies headache, denies nausea/vomiting, denies RUQ pain, denies visual abnormalities. Endorses normal movement. PAST OBSTETRIC HISTORY OB History Para Term AB Living 3 1 1 1 1 SAB IAB Ectopic Multiple Live Births 1 1 # Outcome Date GA Lbr Nathanael/2nd Weight Sex Type Anes PTL Lv 3 Current 2 SAB 07/08/17 11w0d 1 Term 11/20/10 40w0d 2920 g F Vag-Spont KAREEM PAST MEDICAL HISTORY Patient Active Problem List Diagnosis Date Noted 39 weeks gestation of 08/29/2025 Bacterial vaginosis in 08/29/2025 38 weeks gestation of 08/28/2025 Obesity (BMI 30-39.9) 08/28/2025 Vertigo 08/06/2025 Anxiety during in third trimester, antepartum 07/01/2025 Depression during , antepartum 07/01/2025 Anemia of mother in , antepartum 05/08/2025 Heartburn during 03/12/2025 Rubella non-immune status, antepartum 01/03/2025 Dermatitis of face 01/02/2025 Obesity affecting 01/02/2025 History of miscarriage, currently 01/02/2025 History of migraine with aura 03/26/2024 Operations: No past surgical history on file. Prior surgeries at outside hospitals: none Past Medical History: Diagnosis Date Dermatitis 2020 On prn creams, prescribed by dermatology CURRENT HEALTH STATUS Medications: Current Facility-Administered Medications Medication Dose Route Frequency Last Rate Last Admin D5W-LR IV infusion 1,000 mL 1,000 mL IV Infusion TITRATE 75 mL/hr at 08/29/25 1443 1,000 mL at 08/29/25 1443 lactated ringers IV infusion 250 mL 250 mL IV Infusion PRN - SEE INSTRUCTIONS lactated ringers IV infusion 500 mL 500 mL IV Infusion ONCE lactated ringers IV infusion 500 mL 500 mL IV Infusion PRN - SEE INSTRUCTIONS lidocaine 1% (PF) (XYLOCAINE) injection 0.3 mL 0.3 mL Infiltration PRN - SEE INSTRUCTIONS lidocaine 1% (XYLOCAINE) 10 mg/mL (1 %) injection 50 mL 50 mL Infiltration PRN - SEE INSTRUCTIONS Oxytocin in Normal Saline 30 unit/500 mL IV infusion Soln 0-42 yeni-units/min IV Infusion CONTINUOUS sodium citrate-citric acid (BICITRA) 500-334 mg/5 mL solution 30 mL 30 mL Oral PRE-PROCEDURE ONCE sodium citrate-citric acid (BICITRA) 500-334 mg/5 mL solution 30 mL 30 mL Oral PRE-PROCEDURE ONCE Allergies and drug reactions: Patient has no known allergies. HOME MEDICATIONS Medications Prior to Admission Medication Sig Dispense Refill Last Dose/Taking metroNIDAZOLE 500 mg tablet Take 1 tablet by mouth 2 times daily. 14 tablet 0 diphenhydrAMINE 25 mg tablet Take 1 tablet by mouth every 6 hours as needed for Sleep or Other (take with Reglan for Headaches). 10 tablet 0 metoclopramide HCl 10 mg tablet Take 1 tablet by mouth every 6 hours as needed (take with benadryl for headache). 10 tablet 0 ondansetron 4 mg disintegrating tablet Take 1 tablet by mouth every 8 hours as needed for Nausea and Vomiting (N/V). 12 tablet 0 hydrOXYzine 25 mg tablet Take 1 tablet by mouth every 6 hours as needed for Itching. 30 tablet 3 ondansetron 4 mg tablet Take 1 tablet by mouth every 8 hours as needed for Nausea and Vomiting (N/V). 20 tablet 1 esomeprazole 20 mg capsule Take 1 capsule by mouth daily before a meal. 30 capsule 6 PNV 67-iron ps-folate no.1-dha (VITAFOL ULTRA) 29 mg iron- 1 mg-200 mg Cap Take 1 capsule by mouth daily. 60 capsule 6 pimecrolimus 1 % cream Apply to area(s) every morning. Safe for the face. 30 g 5 tacrolimus 0.1 % ointment Apply to area(s) 2 (two) times daily. Safe for the face. 30 g 5 fluticasone propionate 0.05 % cream Apply to area(s) 2 (two) times daily. 30 g 5 SOCIAL HISTORY Tobacco History: Social History Tobacco Use Smoking Status Never Smokeless Tobacco Never Drug History: Social History Substance and Sexual Activity Drug Use Never Alcohol History: Social History Substance and Sexual Activity Alcohol Use Never FAMILY HISTORY Family History Problem Relation Age of Onset Heart Mother 43 years No Significant Medical Problems Father REVIEW OF SYSTEMS General: negative Constitutional: negative Eyes: negative ENT/Mouth: negative Cardiovascular: negative Respiratory: negative Gastrointestinal:negative Genitourinary: negative Musculoskeletal: negative Skin/breast: negative Neurological: negative Psychiatric: negative Endocrine: negative Hemat/Lymph: negative Allergic/Immuno:none VITAL SIGNS BP: (95-115)/(49-77) MAP (mmHg): [53-81] Temp: [36.8 ?C (98.3 ?F)-36.9 ?C (98.5 ?F)] Temp source: Axillary (08/29 1430) Pulse: [81-94] Resp: [16-18] SpO2: [97 %-100 %] Height: [160 cm (5' 2.99")] Weight: [83.6 kg (184 lb 3.2 oz)-84.9 kg (187 lb 3.2 oz)] BMI (calculated): [0-32.64] PHYSICAL EXAMINATIONS General: patient alert and in no acute distress HEENT: symmetric, negative for masses Lungs: unlabored breathing Breast: deferred Cardiology: peripheral pulses intact and regular Abdomen: soft, non-tender, non-distended, no liver, spleen or abnormal masses palpated and Gravid Extremities: no clubbing, cyanosis, or edema Neuro: patient moving all extremities, no facial droop : REVIEW OF LABORATORY, PATHOLOGY, AND RADIOLOGY DATA Lab results: CBC BMP PT/INR WBC (10*3/?L) Date Value 08/29/2025 8.75 NA (mmol/L) Date Value 08/29/2025 136 No results found for: "PT" RBC (10*6/?L) Date Value 08/29/2025 3.94 K (mmol/L) Date Value 08/29/2025 4.3 No results found for: "PTINR" PLT (10*3/?L) Date Value 08/29/2025 257 CALCIUM (mg/dL) Date Value 08/29/2025 8.9 HGB (g/dL) Date Value 08/29/2025 11.4 (L) CL (mmol/L) Date Value 08/29/2025 106 aPTT HCT (%) Date Value 08/29/2025 33.6 (L) BUN (mg/dL) Date Value 08/29/2025 5 (L) No results found for: "APTTPAT" CREATININE (mg/dL) Date Value 08/29/2025 0.50 GLUCOSE (mg/dL) Date Value 08/29/2025 71 CO2 TOTAL (mmol/L) Date Value 08/29/2025 21 (L) Type & Screen [place] Varicella ABO & RH (no units) Date Value 08/29/2025 A POSITIVE [place] screen IgG (no units) Date Value 01/02/2025 Equivocal No components found for: "VZIGG" No results found for: "TSABINT" Hep B HIV Syphilis No results found for: "HBS" No results found for: "HIV" Syphilis IgG/IgM (no units) Date Value 07/08/2025 Nonreactive HBsAg (no units) Date Value 08/29/2025 Negative HBsAg Semi-Quantitative (no units) Date Value 08/29/2025 0.08 No results found for: "HIVMULTIPLEX" Group B Strep Chlamydia Group B Streptococcus by PCR (no units) Date Value 08/06/2025 Negative C. trachomatis Nucleic Acid (no units) Date Value 08/06/2025 Negative GTT No results found for: "GLUF" GLUC 1 HR (mg/dL) Date Value 06/03/2025 112 (L) No components found for: "GLU2H" No results found for: "GLU3H" PASD Screening Prior ? : No Prior Uterine Surgery?: No Placenta low lying/previa in current ? : No Ultrasound suspicion of PASD in current ?: No Screening outcome: A positive screening outcome indicates a history of prior delivery or prior uterine surgery, AND the presence of either a placenta low lying/previa or ultrasound suspicion of PASD in the current . Negative screening. Present on Admission: 39 weeks gestation of Bacterial vaginosis in [place] non-immune status, antepartum Anxiety during in third trimester, antepartum Depression during , antepartum TRIAGE/ADMISSION ASSESSMENT AND PLAN Jackie Rosado is a 34 year old at 38w6d by d/u (5) who presents for IOL due to suspected ICP IOL - (-) Vaginal Bleeding, (-) Leakage of Fluid, (+) Contractions, (-) Decreased Movement - Was seen in triage yesterday, was found to have an unchanged cervical exam. - Today SVE: % / -3 Plan: - Admit for IOL. Plan for FB and Pitocin titration - Epidural Plans: Desires Suspected ICP - Reports continued pruritus of thighs, palms, and soles - AST 24, ALT 21, BA 3 (06/17/25) - Reports minimal itching on admission Plan: - Admit for IOL in the setting of suspected ICP. - CMP reordered on admission Hx of Low Lying Placenta, resolved - Resolved by MFM ultrasound at 33 weeks 07/08/25 - today patient denies vaginal bleeding. Bacterial Vaginosis, current - diagnosed by 08/20/25 vaginal pathogens test - prescribed metronidazole 500mg BID x 7days (day 3) Plan - metronidazole 500mg BID reordered on admission Anxiety Depression - Denies SI/HI - Mood stable on admission - Does follow with psychiatrist outpatient, desires psychiatry consult PP - Takes hydroxyzine PRN Antepartum course reviewed: - 1 h 112, sero negative, Rnot immune, VZVimmune, HPV vaccinated, COVID not vaccinated, A positive/IAT negative, GBS negative, Pap NILM 09/18/23 - H/H, plt: 11.9 / 36.7, 261 on 08/05/25 - [facility] - Contraception: POP Fetus: - Presentation on admission: cephalic - posterior fundal placenta - R2 BSUS EFW: 3585 g, 65%tile - FHT reactive - Normal anatomy scan - NIPT: low risk - Carrier Screen negative Shad Dela Cruz MD Discussed with Shanta Pena MD PGY3 Cosigned by Baldemar Arrington DO at 08/29/2025 4:40 PM CDT Associated attestation - Baldemar Arrington DO - 08/29/2025 4:40 PM CDT Attending addendum: I was L&D faculty on 08/29/2025 and agree with H&P below. I discussed the plan of care with the residents. Baldemar Arrington DO [facility] - [facility] Procedure Notes Date/Time Note Provider Source 2025-08-29 18:19:38 Associated Order(s): Central Neuraxial Block Central Neuraxial Block Date/Time: 08/29/2025 6:19 PM Performed by: Viviane Hawthorne MD Authorized by: Gregory Strickland MD Patient Location: OB End Time: 08/29/2025 6:19 PM Reason for Block: OB request, Patient request, Labor analgesia, Surgical anesthesia and Post-op pain management Staff: Anesthesiologist: Gregory Strickland MD Resident/FIRE ALARM TECHNICIAN: Viviane Hawthorne MD Performed by: resident/FIRE ALARM TECHNICIAN Preanesthetic Checklist: patient identified, IV checked, risks and benefits explained, monitors and equipment checked, timeout performed, pre-op evaluation, site marked and anesthesia consent Procedure: Type of Neuraxial: Epidural Epidural Description: 1st attempt Sterility Prep cap, drape, gloves, hand hygiene and mask Patient Position: sitting Prep: Betadine and patient draped Monitoring: heart rate, continuous pulse ox, heart rate / toco and NIBP Location: lumbar (1-5) Lumbar: L3-L4 Approach: midline Technique: catheter and CHIKA saline Guidance with: landmark technique} Epidural/Spinal [place] and/or Catheter: Epidural/Spinal Kit: BBraun Needle Type: Tuohy Needle Gauge: 17 G Needle Length: 3.5 in (8.89 cm) Needle Insertion Depth: 6 Catheter Type: multiport Catheter Size: 19 G Catheter at Skin Depth: 12 Number of Attempts: 1 Test Dose: negative and lidocaine 1.5% with epinephrine 1-to-200,000 Dose: 3 cc Catheter Securement Method: surgical tape and Tegaderm Assessment: Block Outcome: a full evaluation is pending, patient comfortable and patient tolerated procedure well Procedure Assessment: patient tolerated procedure well with no complications Notes: Patient identified; pre-procedure verification. Patient prepped and draped in standard sterile fashion using betadine x 3 Subcutaneous infiltration with 1% Lidocaine CHIKA at 6 cm; catheter secured at 12 cm with mastisol, tegaderm x2 and 3-inch clear tape. Aspiration test negative x 3 Test dose negative Patient tolerated procedure well with no immediate complications Epidural expectations; PCEA explained and fall precautions given. ANESTHESIOLOGY [facility] Notes Date/Time Note Provider Source 2025-08-31 05:11:04 Problem: Falls, Risk of Goal: Absence of falls Outcome: Progressing as expected Problem: Discharge Planning - Goal: Adequate for discharge Outcome: Progressing as expected Goal: Mood stable Outcome: Progressing as expected Problem: Pain Goal: Control of pain at or below patient's documented comfort goal Outcome: Progressing as expected Goal: Reduction in pain sensation Outcome: Progressing as expected Problem: Skin integrity Impaired (Risk or Actual) Goal: Wound healing Outcome: Progressing as expected Goal: Prevention of new skin breakdown Outcome: Progressing as expected [facility] 2025-08-30 17:52:29 Problem: Intrapartum process (including labor pain) Goal: Reduction in pain sensation Outcome: Progressing as expected Problem: Falls, Risk of Goal: Absence of falls Outcome: Progressing as expected Problem: Discharge Planning - Goal: Adequate for discharge Outcome: Progressing as expected Goal: Mood stable Outcome: Progressing as expected Problem: Pain Goal: Control of pain at or below patient's documented comfort goal Outcome: Progressing as expected Goal: Reduction in pain sensation Outcome: Progressing as expected Problem: Skin integrity Impaired (Risk or Actual) Goal: Wound healing Outcome: Progressing as expected Goal: Prevention of new skin breakdown Outcome: Progressing as expected Mariama Lewis RN [facility] 2025-08-30 13:58:30 Patient: Jackie Rosado Procedure Summary Date: 08/29/25 Room / Location: Anesthesia Start: 1806 Anesthesia Stop: 08/30/25 1245 Procedure: CENTRAL NEURAXIAL BLOCK Diagnosis: Scheduled Providers: Responsible Provider: Sharlene Samano MD Anesthesia Type: Epidural ASA Status: 2 Anesthesia Type: Epidural Last vitals BP Temp Pulse Resp SpO2 There were no known notable events for this encounter. Anesthesia Post Evaluation Patient location during evaluation: bedside Patient participation: complete - patient participated Level of consciousness: awake and alert Pain score: 1 Pain management: satisfactory to patient Airway patency: patent Cardiovascular status: acceptable and blood pressure returned to baseline Respiratory status: acceptable Hydration status: acceptable AN-ANESTHESIOLOGY ANESTHESIOLOGIST [facility] 2025-08-30 12:07:05 VAGINAL DELIVERY NOTE Delivery Date: 08/30/2025 Delivery Time: 11:26 AM Delivery Summary Pre-delivery diagnosis: The patient was admitted to the Labor & Delivery unit for IOL due to suspected ICP at 38w6d. Post-Delivery Diagnoses: None. Post-Delivery Procedure: s/p Sex: male Beto-jocelin Weight: 3115 g 1 Minute 5 Minute 10 Minute Totals: 8 9 Cord gases obtained: Yes Primary delivering resident: Marah Anaya MD Teaching Resident: None. OB Faculty: GILBERTO PEDRAZA Intrapartum Anesthesia/Analgesia: Epidural Labor Complications:None Delivery Blood Loss Delivery: 08/29/256 - 08/30/25 1207 Delivery Admission: 08/29/25 1039 - 08/30/25 1207 Delivery Delivery Admission Estimated blood loss (mL) Hospital Encounter 300 mL 300 mL Total 300 mL 300 mL DELIVERY OF MURO FETUS WITH CEPHALIC PRESENTATION ROUTINE VAGINAL DELIVERY Vaginal delivery of head with cephalic position, occipital anterior. As the head crowned and distended the perineum, no episiotomy was performed. A blue towel was used to protect the perineum as the head crowned and delivered. The other hand was used to exert pressure on the occiput to control the delivery of the head. The perineum was pushed with a towel-draped hand as the head and mouth was delivered over the perineum. The head was allowed to rotate externally to match the shoulder with face to maternal left. The left shoulder was anterior. Examination of neck revealed no nuchal cord. The The shoulder was delivered by gentle downward traction applied to head and downward traction for the delivery of anterior shoulder. This was followed by This was followed by upward traction with delivery of posterior shoulder and body. After the delivery of infant, bulb suction was performed from oropharynx and nostril with removal of clear amniotic fluid. Delayed cord clamping was performed. Time for delayed cord clamping was 60 seconds. A male was delivered. The umbilical cord was double clamped, cut and the infant was handed off the field to the circulating nurse. PLACENTA Placenta was delivered spontaneously while the abdominal hand lifted the uterus cephalad and other hand keeping the umbilical cord slightly taut. Placenta delivered intact: yes FOURTH STAGE Fourth stage of labor was managed by uterine massage with abdominal hand and infusion 30 units of pitocin mixed with intravenous fluid at 600 mL/hr. Uterotonics: Yes - additional IV pitocin TXA given: No Pediatrics was present at delivery: No. The was set to bedside with patient. OBSTETRICAL LACERATION(S): Episiotomy no Laceration type(s): Laceration Repair: 2nd Degree - Second degree laceration was repaired. Suture was used with continuous locking fashion to close the vaginal mucosa and submucosa. The hymenal ring is reapproximated and tied with the same suture. The fascia and muscle of perineum was reapproximated with continuous suturing from [place] toward inferior edge. Continuous subcutaneous stitch was used to reapproximate the perineal skin with the same suture. . Left labial laceration noted to be hemostatic, not requiring repair. Vaginal Counts: Initial count personnel: TAMARA JIMENEZ Initial count verified by: SHRUTI León Initial Count 0 5 Added Counts 1 0 Final Count 1 5 Final count personnel: TAMARA JIMENEZ Final count verified by: SHRUTI PATTERSON Accurate final count? Yes Marah Anaya MD Obstetrics & Gynecology, PGY-2 08/30/25 12:13 PM Cosigned by Gilberto Pedraza MD at 08/30/2025 4:32 PM CDT Associated attestation - Gilberto Pedraza MD - 08/30/2025 4:32 PM CDT I was present for the delivery on 08/30/[address] Anaya's note for additional details. Gilberto Pedraza MD MFM Fellow - PGY6 OBSTETRICS & GYNECOLOGY [facility] 2025-08-30 09:29:00 Intrapartum Progress Note 08/30/2025 9:29 AM Subjective: Patient has been well without complaints Objective: Vitals last 24 hours: Temp: [36.8 ?C (98.3 ?F)-37.2 ?C (98.9 ?F)] 37.1 ?C (98.8 ?F) Pulse: [73-106] 79 Resp: [16-19] 17 BP: (85-115)/(46-74) 97/50 Intake/Output : I/O this shift: In: 36.3 [I.V.:36.3] Out: - I/O last 3 completed shifts: In: 1647.3 [I.V.:56.4] Out: - Assessment Active movement: Yes Mode: EFM Baseline FHR (bpm): 130 Variability: Moderate Pattern: Accelerations Decel Frequency: Intermittent FHR Category: II Uterine Activity: Mode: [place] Contractions (number / 10 minute): 4 Contraction duration (seconds): 60-80 Resting tone: Soft Membrane Status Membrane status: Artificial Rupture date: 08/30/25 Rupture time: 0240 Amniotic fluid color: Bloody Cervical Exam Lip/Rim (comment) / 90 % / 0 Assessment/Plan: Jackie Rosado is a 34 year old at 39w0d OB Assessment: IOL, ICP OB Plan: s/p FB, Pit@1915 Additional Comments/Detail: Patient first called active at 0730. On 2 hr recheck patient has progressed to lip/90/0. Will recheck in 1-2 hrs, or if patient call out sooner. Ripening Agent: Oxytocin Intrapartum Plan: Continue active labor management Amadou Ramon MD OBSTETRICS & GYNECOLOGY [facility] 2025-08-30 07:24:29 Problem: Intrapartum process (including labor pain) Goal: Absence of or reduction of complications of labor Outcome: Progressing as expected Goal: Able to cope with pain Outcome: Progressing as expected Goal: Adequate to move to next level of care Outcome: Progressing as expected Goal: Reduction in pain sensation Outcome: Progressing as expected Problem: Falls, Risk of Goal: Absence of falls Outcome: Progressing as expected Oralia Murillo RN [facility] 2025-08-30 02:41:30 Intrapartum Progress Note 08/30/2025 2:41 AM Subjective: Patient has no complaints Objective: Vitals last 24 hours: Temp: [36.8 ?C (98.3 ?F)-37 ?C (98.6 ?F)] 36.9 ?C (98.5 ?F) Pulse: [78-106] 89 Resp: [16-19] 16 BP: (91-115)/(52-74) 109/72 Intake/Output : I/O this shift: In: 15.7 [I.V.:15.7] Out: - No intake/output data recorded. Assessment Active movement: Yes Mode: EFM Uterine Activity: Mode: [place] Contractions (number / 10 minute): 3 Contraction duration (seconds): 50-80 Resting tone: Soft, Palpation Membrane Status Membrane status: Artificial Cervical Exam 5 / 50 % / -2 Assessment/Plan: Jackie Rosado is a 34 year old at 39w0d OB Assessment: IOL, ICP OB Plan: FB@1430, Pit@_ Additional Comments/Detail: head well applied on cervix. AROM: bloody. Ripening Agent: Oxytocin Intrapartum Plan: Continue active labor management Nanette Walker MD OBSTETRICS & GYNECOLOGY [facility] 2025-08-29 20:04:49 Problem: Intrapartum process (including labor pain) Goal: Absence of or reduction of complications of labor Outcome: Progressing as expected Goal: Able to cope with pain Outcome: Progressing as expected Goal: Adequate to move to next level of care Outcome: Progressing as expected Goal: Reduction in pain sensation Outcome: Progressing as expected Surekha Blanchard RN [facility] 2025-08-29 19:32:17 Intrapartum Progress Note 08/29/2025 7:32 PM Subjective: Patient has no complaints Objective: Vitals last 24 hours: Temp: [36.8 ?C (98.3 ?F)-36.9 ?C (98.5 ?F)] 36.9 ?C (98.5 ?F) Pulse: [81-106] 93 Resp: [16-18] 18 BP: (91-115)/(49-77) 102/59 Intake/Output : No intake/output data recorded. No intake/output data recorded. Assessment Active movement: Yes Mode: EFM Uterine Activity: Mode: [place] Contractions (number / 10 minute): 3 Membrane Status Membrane status: Intact Cervical Exam 5 / 50 % / -3 Assessment/Plan: Jackie Rosado is a 34 year old at 38w6d OB Assessment: IOL, ICP OB Plan: FB@1430, Pit@_ Additional Comments/Detail: FB removed. Attempted AROM however head is quite high. Ripening Agent: [place] bulb, Oxytocin Intrapartum Plan: Continue active labor management Nanette Walker MD [facility] 2025-08-29 18:16:52 Name/ MRN / Age / Gender: Jackie Rosado, [id number] 34 year old female BMI: Estimated body mass index is 32.64 kg/m? as calculated from the following: Height as of this encounter: 1.6 m (5' 2.99"). Weight as of this encounter: 83.6 kg (184 lb 3.2 oz). Allergies: Patient has no known allergies. Last Vitals: BP Readings from Last 1 Encounters: 08/29/25 115/65 Pulse Readings from Last 1 Encounters: 08/29/25 87 SpO2 Readings from Last 1 Encounters: 08/29/25 99% Date of Surgery: 08/29/2025 Surgeon: * No surgeons listed * Procedure: CENTRAL NEURAXIAL BLOCK OR Location: [place] [facility] OUT OF OR - OR LOCATION Anesthesia Preop Eval (physical exam) Anesthesia Preop: Chart Review and [id number] [facility] Communication: 34 year old female at 38w6d requesting central neuraxial anesthesia NPO Status Verified Clear Liquids: > 2 Hours Solid Food/Non-Clear Liquids: > 8 Hours PONV Risk Factors: female Anesthesia History Anesthesia History Negative (-) Hx of anesthetic complications Previous Anesthetics/Airways Cardiovascular Negative Cardiac ROS Comments: BP Readings from Last 3 Encounters: 08/29/25 : 115/65 08/28/25 : 115/69 08/27/25 : 111/68 METS: 5-6 Pulmonary Negative Pulmonary ROS Neuro/Musculoskeletal (-) Spinal Cord injury (-) Positioning limitations (+) Obesity GI/Hepatic Negative GI/Hepatic ROS Hematology Negative Hematology ROS Comments: HGB (g/dL) Date Value 08/29/2025 11.4 (L) PLT (10*3/?L) Date Value 08/29/2025 257 Type and Screen Ordered: Yes Patient Accepts Blood Transfusion: Yes Renal Negative Renal ROS Skin Negative Skin ROS (+) Current IV access and 18g Endo/Other Negative Endo/Other ROS Comments: No results found for: "[id number]" HGB A1C Date Value Ref Range Status 01/02/2025 5.4 4.0 - 5.7 % Final Other [employer]HER Comments: 34 year old female at 38w6d requesting central neuraxial anesthesia IOL - (-) Vaginal Bleeding, (-) Leakage of Fluid, (+) Contractions, (-) Decreased Movement - Was seen in triage yesterday, was found to have an unchanged cervical exam. - Today SVE: % / -3 Plan: - Admit for IOL. Plan for FB and Pitocin titration - Epidural Plans: Desires Suspected ICP - Reports continued pruritus of thighs, palms, and soles - AST 24, ALT 21, BA 3 (06/17/25) - Reports minimal itching on admission Plan: - Admit for IOL in the setting of suspected ICP. - CMP reordered on admission Hx of Low Lying Placenta, resolved - Resolved by MFM ultrasound at 33 weeks 07/08/25 - today patient denies vaginal bleeding. Bacterial Vaginosis, current - diagnosed by 08/20/25 vaginal pathogens test - prescribed metronidazole 500mg BID x 7days (day 3) Plan - metronidazole 500mg BID reordered on admission Anxiety Depression - Denies SI/HI - Mood stable on admission - Does follow with psychiatrist outpatient, desires psychiatry consult PP - Takes hydroxyzine PRN Antepartum course reviewed: - 1 h 112, sero negative, Rnot immune, VZVimmune, HPV vaccinated, COVID not vaccinated, A positive/IAT negative, GBS negative, Pap NILM 09/18/23 - H/H, plt: 11.9 / 36.7, 261 on 08/05/25 - [facility] - Contraception: POP Fetus: - Presentation on admission: cephalic - posterior fundal placenta - R2 BSUS EFW: 3585 g, 65%tile - FHT reactive - Normal anatomy scan - NIPT: low risk - Carrier Screen negative P: 1 Gestational Age: 38 weeks 6 days Pediatric Pediatric N/A N/A Preoperative Medication Instructions Continue taking all prescribed medications except: diuretics, all oral diabetes medications JAIRON Inhibitors and ARBs: Hold for 1 day prior to surgery Anticoagulant Therapy: Defer to surgeons Insulin: Take 1/2 dose the night prior to surgery. Hold on DOS. Phentermine: Alert [facility] anesthesiologist SGLT2 Inhibitors: "gliflozins" to be held for 3 days prior to elective surgeries GLP1 Agonosit: stop 7 days prior to surgery MAC Cases: Continue taking JAIRON inhibitors and ARBs ASA Classification ASA: 2 Labs: Chemistry 08/29/2025 CBC 08/29/2025 136 106 5 (L) 71 8.75 11.4 (L) 257 4.3 21 (L) 0.50 33.6 (L) eGFR: 128.0 Date: 08/29/2025 ANC: 6.68 Date: 08/05/2025 LFTs 08/29/2025 Coags AST: 23 AP: 151 (H) Prot: 6.8 Ca: 8.9 PT: - Date: - ALT: 21 T Aaron: 0.4 Alb: 3.5 PTT: - Date: - PO4: - Date: - INR: - Date: - Cardiac Endocrine & other pBNP: - Date: - A1C: 5.4 Date: 01/02/2025 Trop I: 0.002 Date: 05/08/2025 POCT A1C: - Date: - CK: - Date: - TSH: - Date: - CKMB: - Date: - FT4: - Date: - LDL: - Date: - Lact: - Date: - Procal: - Date: - Respiratory -|-|-|-|- D-dimer: - ABG Date: - Date: - Miscellaneous Type and Screen: A POSITIVE Antibody: Negative Date: 08/29/2025 POCT : Positive Date: 01/02/2025 Current Medications: No outpatient medications have been marked as taking for the 08/29/25 encounter (Hospital Encounter). Previous Surgeries: No past surgical history on file. Anesthesia Physical Exam General no apparent distress and alert and oriented x 3 Neuro/Psych neurological Dental no notable dental hx Abdominal (+) obesity, gravid and decreased Airway Mallampati score:II Neck ROM: full Mouth opening:normal Extremity Normal extremity Pulmonary pulmonary exam normal Other Cardiovascular cardiovascular exam normal Anesthesia Plan ASA Status: 2 Plan discussed during pre-op evaluation: General, Epidural, Spinal, CSE and IT Catheter Anesthetic plan on DOS: Epidural Anesthesia plan discussed with: patient or loss prevention representative and rn referral Post-Operative Analgesia: routine analgesia & antiemetics Recovery Plan: LDR Additional comments: AN-ANESTHESIOLOGY ANESTHESIOLOGIST [facility] 2025-08-26 10:04:34 Called patient, notified positive for BV. Educated patient on antibiotics, daily probiotics, and BV prevention measures. Pt verbalized understanding. JANETH Alarcon RN 08/26/2025 10:04 AM Janeth Alarcon RN [facility] 2025-08-26 09:06:17 Attempted to call patient, no answer, left vm. [facility] 2025-08-26 08:58:13 Patient labs positive for BV. Medication has been ordered to her pharmacy on file. Please advise her to complete the meds as prescribed, practice good perineal hygiene, limit sexual partners, and practice safe sex. SWAPNA Marlow 08/26/2025 8:58 AM [facility] 2025-08-18 08:30:54 Called pt, pt reports yeast infection symptoms. Reports vaginal itching and irritation. Pt educated on otc monistat. Pt verbalized understanding. Janeth Alarcon RN 08/18/25 8:35 AM Janeth Alarcon RN [facility] 2025-08-18 08:12:10 Jackie Rosado is a 34 year old female Pt calling via psychology physician stating she finished antibiotics Monday of last week and started having vaginal itching, some watery discharge and urine is dark yellow no matter how much water she drinks. No appt until 08/20 Please call pt at [phone] (home) [facility]/pharmacy #[id number] [place], [place] - [address] [place] [address] [address] [facility] Valerie Jones [facility] 2025-08-06 02:16:19 Jackie Rosado is a 34 year old female c/o headache, blurred vision and dizziness x 6 days. 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 Transported via wheelchair by ERT at this time. AAOX4, GCS 15, no apparent distress, speech clear, steady gait, skin warm and dry, color afe. Accompanied by family. ZAT Carline Armando RN [facility] 2025-08-05 20:42:05 Pt given printed and verbal discharge instructions regarding ABX use & medication use dehydration, encouraged hydration, 2 Prescriptions provided Pt verbalized understanding of instructions, pt awake alert oriented, resp reg unlabored, skin w/d, color appropriate for race, moves all ext well,pt encouraged to follow up with pcp. Advised to seek medical attention for new/prolonged/worsening of symptoms, Symptoms improved. PIV d'cd, dressing to site, catheter in tact. Awake, alert oriented, resp reg unlabored, skin w/d, pt leaving amb with steady gait, in no apparent distress, Alka Strickland RN [facility] 2025-08-05 18:27:28 heart tones heard & strong; chair locked; call light within reach; no apparent S&S of distress noticed at this time; plan of care ongoing [facility] 2025-08-05 16:28:32 CC: patient presents to the ER for complaints of vomiting and dizziness that began 6-7 days ago. Patient also states she is having upper back and neck pain. 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 Patient states she is 35 weeks gestation. Patient is samoan speaking only. Awake, alert, oriented, resp reg unlabored, skin warm and dry, color appropriate for race, moves all ext without difficulty, amb without assistance. Appears in no distress. Myah Coulter RN [facility] 2025-08-05 16:23:01 Called for triage, patient in restroom. [facility] 2025-08-05 14:20:03 Called pt, pt reports having headache, dizziness, vomiting x 5 days. Reports intermittent contractions. Denies swelling, DFM, LOF, and or vaginal bleeding. Pt unable to check BP at home. Pt advised will need to be evaluated by L&D. Strict er warnings given. Pt verbalized understanding. Janeth Alarcon RN 08/05/25 2:37 PM Janeth Alarcon RN [facility] 2025-08-05 13:27:40 Copied from [facility] #[id number]. Topic: Clinical - Medical Advice >> Aug 05, 2025 1:25 PM Patient X Ray Service Engineer wrote: Jackie Rosado is a 34 year old female 35 weeks 3 days samoan speaking ob patient, states she has been having frequently vomit, headache and dizziness x 5 days. Please call [phone] (home) Shelley Felton [facility] 2025-07-11 11:00:23 Her symptoms are related to anxiety. I increased the dosage of hydroxyzine and she should take it 4 times as needed. She needs to take when starts to feel sx not wait until they become uncontrollable. Please give her mental health resources and encourage her to contact [facility] since we are limited in treatment options. Nurse called and spoke to patient. Nurse did give pt all the information for [facility] since she lives in [facility]. Nurse also did give pt the information for the [facility] website. Pt verbalized understanding and has no further questions at this time. Pt states that she is going to try to take the medication as instructed, and if this does not, she will go and get help from psychologist. Néstor Stone LVN [facility] 2025-07-11 08:19:42 Called pt, no answer. Left vm. Janeth Alarcon RN 07/11/25 8:19 AM Janeth Alarcon RN [facility] 2025-07-11 06:41:01 Her symptoms are related to anxiety. I increased the dosage of hydroxyzine and she should take it 4 times as needed. She needs to take when starts to feel sx not wait until they become uncontrollable. Please give her mental health resources and encourage her to contact [facility] since we are limited in treatment options. [facility] 2025-07-10 13:20:15 Pt states that she had an attack last night to the point that she needed to take the medication for anxiety. Pt states that she felt like she was going to faint last night, and "had discomfort on half of my brain". Pt states that the medication is not working and she was told this would cause her sleepiness, and per patient she wasn't able to go to sleep until 2 am. Pt then was already awake by 6 am this morning, pt states " I have bad nerves before , but nothing to this extent." No SANABRIA, irritation, when she is very anxious to the point that someone needs to hold her because she feels like she is going to faint. Nurse told pt that this will be informed to provider to see what is the recommendation. [facility] 2025-07-10 11:26:50 Copied from CRM #[id number]. Topic: Clinical - Medical Advice >> Jul 10, 2025 11:25 AM Patient X Ray Service Engineer wrote: Jackie Rosado Clinic Name: [facility] [id number] female / 34 year old (1990) Patient Specific Symptoms: headache, feels hot, medication not helping Patient durations of symptoms: x2days Language : BAHRAINI Number of weeks : 31wks 5days Maame Nugent [facility] 2025-06-26 11:27:46 Pt called, states after receiving tdap vaccine having SANABRIA, ringing in ears, and sensitive to sounds. Pt denies blurry vision or swelling. Pt denies DFM, contractions, or LOF. Pt given strict er warnings. Advised to take tylenol and scheduled for same day [place]. Verbalized understanding. Janeth Alarcon RN 06/26/25 11:33 AM Janeth Alarcon RN [facility] 2025-06-26 11:23:22 Copied from [facility] #[id number]. Topic: Clinical - Medical Advice >> Jun 26, 2025 11:22 AM Patient X Ray Service Engineer wrote: Pt is requesting call back, states she has been having side effects from vaccines, please call [phone] (home) IGOR Medina [facility] 2025-05-20 15:44:46 Patient educated and providers recommendations. Janeth Alarcon RN 05/20/25 3:47 PM Janeth Alarcon RN [facility] 2025-05-20 15:32:10 I agree with information provided. Most likely due to anemia and decreased food intake. Increase protein in diet and eat small frequent meals. She should take iron supplement prior to bed with no milk. [facility] 2025-05-20 14:54:58 Called pt, pt reports intermittent dizziness since starting iron supplements on 05/12/2025. Denies DFM, Swelling, elevated BP, and or headaches. Reports dizzy spell occur and food worsens her symptoms. Reports drinks 3 liters of water daily. Reports eats twice a day. Educated on s/s of anemia, hydration, and increasing to 3 meals daily and healthy snacks in between. Educated pt to continue iron supplement to improve anemia since symptoms may be due to anemia diagnosis. Pt verbalized understanding. Routed to provider for any additional recommendations. Janeth Alarcon RN 05/20/25 2:56 PM [facility] 2025-05-20 14:19:02 Copied from [facility] #[id number]. Topic: Clinical - Medical Advice >> May 20, 2025 2:13 PM Patient X Ray Service Engineer wrote: Jackie Calzadaa Clinic Name: [facility] [id number] female / 34 year old (1990) Patient Specific Symptoms: dizzy when stands up and head pressure since taking iron medication Patient durations of symptoms: x 1 week Language (Remove if tajik speaking): samoan Number of weeks (remove if it does not apply): 24 weeks Claudia Anaya [facility] 2025-05-12 16:04:30 Pt reports never taken iron prior. Advised to D/C meds and notified of providers recommendations. Verbalized understanding. Janeth Alarcon RN 05/12/25 4:06 PM Janeth Alarcon RN [facility] 2025-05-12 15:56:58 Has she taken iron supplement in past? She can try OTC iron supplement, not one with red dye. She will need to increase iron rich foods. [facility] 2025-05-12 14:42:49 Called pt, pt reports taking Integra plus x 3 days. Reports burning rash on face after taking medication. Denies any other s/s. Pt with hx dermatitis, pt denies having flare up. Advised to discontinue integra plus and will route to provider for POC. Pt to continue taking pnv as prescribed. Verbalized understanding. Janeth Alarcon RN 05/12/25 2:43 PM [facility] 2025-05-12 14:13:52 Jackie Rosado is a 34 year old female Pt is having a rash on face from meds Iron Fum & P-FA-Vit B & C No.9 (INTEGRA PLUS) 125 mg iron- 1 mg Cap Nathan Keller [facility] 2025-05-08 01:59:11 Pt cleared by ED provider Report called to Basia PATTERSON in L&D Pt being transferred to L&D for decreased movement Pt taken to L&D via wheelchair [facility] 2025-05-08 00:47:10 22w5d [facility]P pt C/o SOB, chest pressure, and dizzy x 1 day, began this afternoon but has gotten worse throughout the evening Denies any related complaints Marcelina Santiago RN [facility] 2025-05-08 00:46:00 [facility] Emergency Department Note Patient Name: Jackie Rosado Date of : 1990 34 year old female Treatment Room: [place] [address] Primary Care Physician: Katlin Ward Patient Escorted by: Family [5] Mode of Arrival: Personal means [1] EMS 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 Also reports some dizziness. No fever or chills. No cough or congestion. No palpitations. No vaginal bleeding or spotting. No pelvic pain, but pt reports decreased movement History provided by: Patient, significant other and medical records assembler garment form used: Yes Chest Pain Pain location: Epigastric Pain radiates to: Does not radiate Pain severity: Moderate Onset quality: Gradual Duration: 12 hours Timing: Intermittent Chronicity: New Context: at rest Context: not breathing, not drug use, not eating, not lifting, not movement, not raising an arm, not stress and not trauma Relieved by: Nothing Worsened by: Nothing Ineffective treatments: None tried Associated symptoms: dizziness and nausea Associated symptoms: no altered mental status, no anorexia, no anxiety, no back pain, no claudication, no cough, no diaphoresis, no dysphagia, no fatigue, no fever, no headache, no heartburn, no lower extremity edema, no near-syncope, no numbness, no orthopnea, no palpitations, no PND, no shortness of breath, no syncope, no vomiting and no weakness Risk factors: Risk factors: no aortic disease, no control, no coronary artery disease, no diabetes mellitus, no high cholesterol, no hypertension, no immobilization, not obese, no prior DVT/PE and no smoking Past Medical History/Immunizations: Past Medical History: Diagnosis Date Dermatitis 2020 On prn creams, prescribed by dermatology Tetanus received in last 5 years: Unknown Childhood immunizations: Up-to-date Allergies: No Known Allergies Past Social History: Tobacco Use Never smoked or used smokeless tobacco. Vaping Use Never used Alcohol Use Never. Drug Use Never. Sexual Activity Sexually active; Partners: Male; Control/Protection: None. Comments: last sexual intercourse 12/26/2024 Past Surgical History: History reviewed. No pertinent surgical history. Review of Systems: Review of Systems Constitutional: Negative. Negative for diaphoresis, fatigue and fever. HENT: Negative. Negative for trouble swallowing. Eyes: Negative. Respiratory: Negative. Negative for cough and shortness of breath. Breasts: Negative. Cardiovascular: Positive for chest pain. Negative for palpitations, orthopnea, claudication, syncope, PND and near-syncope. Gastrointestinal: Positive for nausea. Negative for anorexia, heartburn and vomiting. Genitourinary: Negative. Musculoskeletal: Negative. Negative for back pain. Skin: Negative. Neurological: Positive for dizziness. Negative for weakness, numbness and headaches. Psychiatric/Behavioral: Negative. All other systems reviewed and are negative. Endocrine: Endocrine negative Physical Exam: Physical Exam ED Triage Vitals Weight 05/08/2549 78.9 kg (174 lb) Actual or estimated -- Height 05/08/2549 1.6 m (5' 3") BP 05/08/2549 115/75 Pulse 05/08/2549 90 Resp 05/08/2549 17 Temp 05/08/2556 36.9 ?C (98.4 ?F) Temp source 05/08/2556 Oral SpO2 05/08/2549 100 % Measured on 05/08/2549 Room air Physical Exam Vitals and nursing note reviewed. Constitutional: General: She is not in acute distress. Appearance: Normal appearance. She is not ill-appearing or toxic-appearing. HENT: Head: Normocephalic and atraumatic. Nose: No congestion or rhinorrhea. Mouth/Throat: Mouth: Mucous membranes are moist. Pharynx: Oropharynx is clear. Eyes: General: No scleral icterus. Right eye: No discharge. Left eye: No discharge. Extraocular Movements: Extraocular movements intact. Conjunctiva/sclera: Conjunctivae normal. Pupils: Pupils are equal, round, and reactive to light. Cardiovascular: Rate and Rhythm: Normal rate and regular rhythm. Pulses: Normal pulses. Heart sounds: Normal heart sounds. No murmur heard. Pulmonary: Effort: Pulmonary effort is normal. No respiratory distress. Breath sounds: Normal breath sounds. No stridor. No wheezing, rhonchi or rales. Chest: Chest wall: No tenderness. Abdominal: General: Abdomen is flat. Bowel sounds are normal. There is no distension. Palpations: Abdomen is soft. There is no mass. Tenderness: There is no abdominal tenderness. There is no right CVA tenderness, left CVA tenderness, guarding or rebound. Hernia: No hernia is present. Comments: Gravid Uterus Musculoskeletal: General: No swelling, tenderness, deformity or signs of injury. Normal range of motion. Cervical back: Normal range of motion and neck supple. No rigidity or tenderness. Right lower leg: No edema. Left lower leg: No edema. Lymphadenopathy: Cervical: No cervical adenopathy. Skin: General: Skin is warm. Capillary Refill: Capillary refill takes less than 2 seconds. Coloration: Skin is not jaundiced or pale. Findings: No bruising, erythema, lesion or rash. Neurological: General: No focal deficit present. Mental Status: She is alert and oriented to person, place, and time. Mental status is at baseline. Cranial Nerves: No cranial nerve deficit. Sensory: No sensory deficit. Motor: No weakness. Coordination: Coordination normal. Gait: Gait normal. Deep Tendon Reflexes: Reflexes normal. Psychiatric: Mood and Affect: Mood normal. Behavior: Behavior normal. Thought Content: Thought content normal. Judgment: Judgment normal. Radiology: No orders to display Lab Results: Lab Results CBC WITH DIFF - Abnormal Result Value Ref Range WBC 8.04 4.30 - 11.10 10*3/?L RBC 3.59 (*) 3.93 - 5.25 10*6/?L HGB 10.7 (*) 11.6 - 15.0 g/dL HCT 31.4 (*) 35.7 - 45.2 % MCV 87.5 80.6 - 95.5 fL MCH 29.8 25.9 - 32.8 pg MCHC 34.1 31.6 - 35.1 g/dL RDW-SD 42.5 39.0 - 49.9 fL RDW-CV 13.3 12.0 - 15.5 % PLT 256 166 - 358 10*3/?L MPV 9.0 (*) 9.5 - 12.9 fL NRBC/100 WBC 0.0 0.0 - 10.0 /100 WBCs NRBC x10 3 <0.01 10*3/?L GRAN MAT (NEUT) % 72.1 % IMM GRAN % 0.60 % LYMPH % 20.6 % MONO % 6.1 % EOS % 0.4 % BASO % 0.2 % GRAN MAT x10 3 (ANC) 5.79 1.88 - 7.09 10*3/uL IMM GRAN x10 3 0.05 0.00 - 0.06 10*3/uL LYMPH x10 3 1.66 1.32 - 3.29 10*3/uL MONO x10 3 0.49 0.33 - 0.92 10*3/uL EOS x10 3 0.03 0.03 - 0.39 10*3/uL BASO x10 3 <0.03 0.01 - 0.07 10*3/uL COMP. METABOLIC PANEL (13655) - Abnormal NA 137 135 - 145 mmol/L K 3.6 3.5 - 5.0 mmol/L CL 106 98 - 108 mmol/L CO2 TOTAL 21 (*) 23 - 31 mmol/L AGAP 10 2 - 16 BUN 5 (*) 7 - 23 mg/dL GLUCOSE 90 70 - 110 mg/dL CREATININE 0.48 (*) 0.50 - 1.04 mg/dL TOTAL BILI 0.4 0.1 - 1.1 mg/dL CALCIUM 9.2 8.6 - 10.6 mg/dL T PROTEIN 6.7 6.3 - 8.2 g/dL ALBUMIN 3.8 3.5 - 5.0 g/dL ALK PHOS 55 34 - 122 U/L ALTv 23 5 - 35 U/L AST(SGOT) 20 13 - 40 U/L eGFR 129.2 mL/min/1.73m2 LIPASE - Normal LIPASE 52 0 - 220 U/L TROPONIN I - Normal TROPONIN I 0.002 <=0.034 ng/mL Orders and Treatments: Orders Placed This Encounter Procedures Cbc with Diff Comp. Metabolic Panel (49241) Lipase Troponin I Orders Placed This Encounter Medications maalox/diphenhydrAMINE:lid ocaine2 %viscous 1:1:1: suspension (COMPOUNDED) First Provider Eval: ED Events Date/Time Event User Comments 05/08/2555 Medical Screening Begins ROSE PRINGLE MD -- 05/08/2555 First Provider Evaluation ROSE PRINGLE MD -- ED COURSE ED Course as of 05/08/25204 [facility] May 08, 2025 0154 1:54 AM Pt re-examined. Pain resolved. Has no further complaints Will send to L&D for decreased movement [[place]] ED Course User Index [[place]Y] Rose Pringle MD Diagnosis/Impression as of 05/08/25204 Epigastric pain Decreased movements in second trimester, single or unspecified fetus Mild anemia Results Procedures: Procedures MDM: Assessment & Plan Medical Decision Making Jackie Rosado is a 34 year old female G 3 P1 who is currently 22 weeks presenting to the ED for epigastricpain, dizziness. Also reports decreased movement Problems Addressed: Decreased movements in second trimester, single or unspecified fetus: acute illness or injury Details: Will send to L&D for further evaluation Epigastric pain: acute illness or injury Details: Resolved with ED management Mild anemia: chronic illness or injury Amount and/or Complexity of Data Reviewed Labs: ordered. Decision-making details documented in ED Course. ECG/medicine tests: ordered and independent interpretation performed. Decision-making details documented in ED Course. Risk Decision regarding hospitalization. Flowsheet Documentation: Scoring Tools: No data recorded Disposition/Condition: ED Disposition ED Disposition Transfer - Internal L&D Condition Stable Comment -- Discharge Medications: Current Discharge Medication List CONTINUE these medications which have NOT CHANGED Details esomeprazole 20 mg capsule Take 1 capsule by mouth daily before a meal. Qty: 30 capsule, Refills: 6 Associated Diagnoses: Heartburn during in second trimester PNV 67-iron ps-folate no.1-dha (VITAFOL ULTRA) 29 mg iron- 1 mg-200 mg Cap Take 1 capsule by mouth daily. Qty: 60 capsule, Refills: 6 Associated Diagnoses: Supervision of high risk in second trimester proMETHazine 25 mg tablet Take 1 tablet by mouth every 4 (four) hours as needed for Nausea and Vomiting (N/V). Qty: 30 tablet, Refills: 1 Associated Diagnoses: Nausea and vomiting during pimecrolimus 1 % cream Apply to area(s) every morning. Safe for the face. Qty: 30 g, Refills: 5 Associated Diagnoses: Irritant contact dermatitis, unspecified trigger tacrolimus 0.1 % ointment Apply to area(s) 2 (two) times daily. Safe for the face. Qty: 30 g, Refills: 5 Associated Diagnoses: Irritant contact dermatitis, unspecified trigger fluticasone propionate 0.05 % cream Apply to area(s) 2 (two) times daily. Qty: 30 g, Refills: 5 Associated Diagnoses: Irritant contact dermatitis, unspecified trigger Follow-up: Electronically signed by: Rose Pringle MD 05/08/25204 [facility] 2025-04-09 14:50:06 Nurse called and informed pt to take medication as prescribed since she was positive for BV. Pt verbalized understanding and has no further questions at this time. "Pt labs positive for BV, treatment sent to pharmacy on file SWAPNA Marlow 04/09/2025 1:47 PM" Néstor Stone LVN [facility] 2025-04-09 14:35:08 Jackie Rosado is a 34 year old female Pt calling via psychology physician about lab results. Please call pt at [phone] (home) Valerie Jones [facility] 2025-04-09 12:48:35 Pt labs positive for BV, treatment sent to pharmacy on file SWAPNA Marlow 04/09/2025 1:47 PM [facility] 2025-03-14 12:53:12 Called pt, discussed results and poc. Verbalized understanding. Janeth Alarcon RN 03/14/25 12:53 PM Janeth Alarcon RN [facility] 2025-03-14 10:53:27 Please call patient and let her know urine and vaginal cultures are negative for infection. The discomfort she is having could be caused by growing uterus. [facility] 2025-03-12 08:26:25 Called pt, pt having dysuria and lower pelvic pain x 7 days. Reports little amount of urine when going to void. Reports foul smelling urine. Denies any vaginal discharge. Provider notified and advised to scheduled for same day appt. Janeth Alarcon RN 03/12/25 8:33 AM Janeth Alarcon RN [facility] 2025-03-12 08:12:04 Jackie Rosado is a 34 year old female is requesting a callback. Patient says that she is having burning when urinating and a lot of pressure causing problems with walking. PAS offered appt but patient would like callback first. Thank you. Jess Santana [facility] 2025-01-23 13:41:55 Triage Assessment Last Clinic Visit: 01/02/2025 initial visit Primary Symptom: Spotting Onset / Duration: 01/21/25 in AM Location / Description: pelvic,vaginal Pain / Severity: 3/10 Associated Symptoms: pelvic pain, cramping, cold, fever, cough, headache Fever / Method: reports fever, but had not check her temperature, stated the fever and cold subsided. Hydration: Treatment so far: Tylenol 325 mg for headache and cold, Cefdinir for UTI. Effect on ADL's: some Gestational Weeks: 8 week Rupture Membranes: NO Bleeding / Spotting / Pads per hour: spotting notice when wiping after using the restroom Movement: patient is 8 weeks Para / : A1 EDC: 09/06/2025 Pre-existing condition / Immunocompromised: History of migraine with aura, Dermatitis of face, Obesity affecting , History of miscarriage, currently , Rubella non-immune status, antepartum. Patient calls stating that she was seen at the ER on 01/21/25 and was advised to follow up with the clinic, if her symptoms persist. Today she noticed that the vaginal spotting have turn to red color, she denied using a pad at this time, she experiences lower abdominal and pelvic pain described as cramping pain, rated her pain at 3/10.a week from now she has been experiencing fever and cold and have been taking tylenol 325 mg, today the cold and fever have subsided. She still experienced cough that would made her strain and feel short of breath, also urine leakage when she cough. Advised patient to return to ER for evaluation. Patient verbalizes understanding. ER warning signs provided. O Larson RN [facility] 2025-01-23 13:17:41 Jackie Rosado is a 34 year old female 7wks preg Pt is exp pink/red discharge O Palacios [facility] 2025-01-21 16:02:24 Pt discharged with diagnosis of threatened miscarriage in early , acute cystitis during in first trimester, and viral URI with cough. Printed and verbal instructions reviewed with and given to pt. Prescriptions given x 1. Pt verbalized understanding of teaching, medication, and recommended follow-up. Denies questions or concerns at this time. Pt ambulatory at discharge. Appears in no apparent distress. No ataxia noted. RANS REHABILITATION COUNSELOR Heide Villalpando RN [facility] 2025-01-21 14:54:31 Report given to Mario Villalpando RN. O Salinas RN [facility] 2025-01-21 13:32:34 Pt arrived ambulatory for vaginal bleeding that began today. A1, cough and sore throat since Monday. Took promethazine today but vomited, states she saw a rat today in her apartment and it scared her, 10 minutes later her stomach started hurting, vomited and had vaginal bleeding. Hx none O Magdaleno RN [facility] 2025-01-21 09:47:49 Patient stated she had discharge with red blood x 3 times today when wiping. Denies any other symptoms, last sexual encounter 15 days ago. Stated she is not having to wear a liner. Pt is concerned she is having a miscarriage and would like to go to hospital for evaluation. Advised to go to ER for evaluation and follow up if necessary, verbalized understanding. [facility] 2025-01-21 09:23:28 Patient calling to speak to nurse. Patient c/o spotting since 2 hours ago. No other symptom please call back RANS REHABILITATION COUNSELOR Claudia Anaya [facility] 2025-01-21 08:44:50 Pt stated she is having constipation, referred to safe medication list. Pt stated she has been vomiting about 3-4 times a day. Stated the promethazine has been giving her relief at times but not fully. Referred to safe medication list, informed to return call if symptoms worsen, verbalized understanding. [facility] 2025-01-21 08:35:14 Jackie Rosado is a 34 year old female Yakut speaking 7 weeks 3 days ob patient states she has been having constipation for 1 weeks having a bowel movement every 3 days and has been having green vomit that look like bile, cough and fever. Please call [phone] (home) O Felton [facility] 2025-01-16 16:52:25 Notified patient prescription for nausea has been sent to pharmacy on file. Pt asking if can take OTC and or extra folic acid. Informed patient that she can buy any over the counter vitamin and she does not need extra folic acid. Pt verbalized understanding. CICI MARQUEZ RN 01/16/2025 4:56 PM [facility] 2025-01-16 16:23:33 Promethazine erx sent [facility] 2025-01-16 14:40:14 Jackie Rosado is a 34 year old female Yakut speaking patient requesting prescription for nausea and vomit to be sent to pharmacy, please call [phone] (home) [facility]/pharmacy #[id number] [place] [address] - [address] [place] [address] [address] [facility] RANS REHABILITATION COUNSELOR Shelley Felton [facility] 2025-01-06 13:51:00 Pt given printed and verbal discharge instructions regarding pelvic pain affecting regnancy in first trimester, threatened miscarriage in early , encouraged hydration. Pt verbalized understanding of instructions, pt awake alert oriented, resp reg unlabored, skin w/d, color appropriate for race, moves all ext well,pt encouraged to follow up with pcp. Advised to seek medical attention for new/prolonged/worsening of symptoms. PIV d'cd, dressing to site, catheter in tact. Awake, alert oriented, resp reg unlabored, skin w/d, pt leaving amb with steady gait, in no apparent distress, accompanied by her significant others. [facility] 2025-01-06 11:12:00 Patient came in with complaints of RLQ abdominal pain since 3 days. States she's also constipated. States she's . LMP - 11/30/2024, M1 Book Jogger Name/ID: Igor / [id number] O Huber RN [facility] 2025-01-06 11:11:00 [facility] Emergency Department Note Patient Name: Jackie Rosado Date of : 1990 34 year old female Treatment Room: [facility] ED DARNELL JONES/KARAN Primary Care Physician: PATIENT DOES NOT HAVE A PCP Patient Escorted by: Family [5] Mode of Arrival: Personal means [1] EMS Treatment Prior to ED Arrival: Travel and Exposure Screening: Symptoms Does patient have any of these symptoms?: (not recorded) Exposure Screening Has patient had contact with someone with a communicable disease in the last month?: (not recorded) Diseases exposed to:: (not recorded) Is Patient ?: (not recorded) Exposure Date: (not recorded) Chief Complaint: Chief Complaint Patient presents with Abdominal Pain RLQ Constipation History of Present Illness: The patient presents from home for evaluation for right lower quadrant abdominal pains been present for the past 3 days. No nausea or vomiting. No fevers or chills. No dysuria or hematuria. No vaginal bleeding or discharge. She reports she is newly and is 3 para 1-0-1-1. Her last menstrual period was November 30. She has seen [facility] with this but has not had an ultrasound as of yet. No medication taken for symptoms. Here for evaluation. Past Medical History/Immunizations: Past Medical History: Diagnosis Date Dermatitis 2020 On prn creams, prescribed by dermatology Tetanus received in last 5 years: Unknown Allergies: No Known Allergies Past Social History: Tobacco Use Never smoked or used smokeless tobacco. Alcohol Use Never. Drug Use Never. Sexual Activity Sexually active; Partners: Male; Control/Protection: None. Comments: last sexual intercourse 12/26/2024 Past Surgical History: History reviewed. No pertinent surgical history. Review of Systems: Review of Systems Constitutional: Negative for chills and fever. Respiratory: Negative for cough and shortness of breath. Cardiovascular: Negative for chest pain. Gastrointestinal: Negative for abdominal pain, nausea and vomiting. Genitourinary: Positive for pelvic pain. Negative for dysuria. Musculoskeletal: Negative for arthralgias, neck pain and neck stiffness. Skin: Negative for wound. Neurological: Negative for dizziness. Psychiatric/Behavioral: Negative for agitation. Endocrine: Negative for goiter. Physical Exam: ED Triage Vitals [01/06/25 1112] Weight 81.6 kg (180 lb) Actual or estimated Estimated by patient/family report Height 1.575 m (5' 2") BP 120/79 Pulse 92 Resp 15 Temp 37.1 ?C (98.8 ?F) Temp source Oral SpO2 100 % Measured on Room air Physical Exam Vitals and nursing note reviewed. Constitutional: Appearance: Normal appearance. She is normal weight. HENT: Head: Normocephalic and atraumatic. Cardiovascular: Rate and Rhythm: Normal rate and regular rhythm. Pulmonary: Effort: Pulmonary effort is normal. No respiratory distress. Abdominal: General: There is no distension. Palpations: Abdomen is soft. Tenderness: There is abdominal tenderness (Right lower quadrant tenderness but no rebound or guarding is noted.). There is no guarding or rebound. Musculoskeletal: General: Normal range of motion. Cervical back: Normal range of motion and neck supple. Skin: General: Skin is warm and dry. Neurological: General: No focal deficit present. Mental Status: She is alert and oriented to person, place, and time. Radiology: US first trimester less than 14 weeks with transvaginal Final Result EXAM: US FIRST TRIMESTER LESS THAN 14 WEEKS WITH TRANSVAGINAL HISTORY: 34 years-old Female; Provided indication: pelvic pain, , eval for ectopic . LMP = 11/30/2024. Beta-hCG: A beta-hCG has not been collected at the time of dictation. Point of care test from 01/02/2025 is positive. G/P: 01/25. TECHNIQUE: Survey transabdominal and transvaginal ultrasound imaging and color Doppler evaluation of the pelvis was performed. M-mode was used to evaluate the heart. Drum Attendant images were obtained. COMPARISON: None FINDINGS: Uterus: The uterus measures 8.3 x 4.4 x 6.1 cm. An intrauterine gestational sac is present. Anechoic structure measuring 6 mm on the proximal cervix may represent a nabothian cyst. The mean sac diameter measures 0.9 cm. The pole is visualized, with the crown-rump length measuring 0.2 cm. heart tones were not appreciated. Right Adnexa: Ovary: The right ovary measures 3.1 x 2.1 x 2.8 cm with a volume of 9.5 ml. The right ovary is unremarkable. Left Adnexa: Ovary: The left ovary measures 2.4 x 1.4 x 2.0 cm with a volume of 3.4 ml. The left ovary is unremarkable. Cul-de-sac: No free fluid is present. IMPRESSION Single intrauterine gestation with crown-rump length consistent with gestational age 5 weeks and 5 days. heart tones were not appreciated likely due to early . Follow-up ultrasound recommended in 2 weeks Felix Harding MD., have reviewed this study and agree with the above report. Lab Results: Lab Results CBC WITH DIFF - Abnormal Result Value Ref Range WBC 7.59 4.30 - 11.10 10*3/?L RBC 4.63 3.93 - 5.25 10*6/?L HGB 13.1 11.6 - 15.0 g/dL HCT 39.3 35.7 - 45.2 % MCV 84.9 80.6 - 95.5 fL MCH 28.3 25.9 - 32.8 pg MCHC 33.3 31.6 - 35.1 g/dL RDW-SD 37.5 (*) 39.0 - 49.9 fL RDW-CV 12.2 12.0 - 15.5 % PLT 328 166 - 358 10*3/?L MPV 9.3 (*) 9.5 - 12.9 fL NRBC/100 WBC 0.0 0.0 - 10.0 /100 WBCs NRBC x10 3 <0.01 10*3/?L GRAN MAT (NEUT) % 75.9 % IMM GRAN % 0.40 % LYMPH % 17.9 % MONO % 5.1 % EOS % 0.3 % BASO % 0.4 % GRAN MAT x10 3 (ANC) 5.76 1.88 - 7.09 10*3/uL IMM GRAN x10 3 0.03 0.00 - 0.06 10*3/uL LYMPH x10 3 1.36 1.32 - 3.29 10*3/uL MONO x10 3 0.39 0.33 - 0.92 10*3/uL EOS x10 3 <0.03 (*) 0.03 - 0.39 10*3/uL BASO x10 3 0.03 0.01 - 0.07 10*3/uL BASIC METABOLIC PANEL (NA, K, CL, CO2, GLUCOSE, BUN, CREATININE, CA) - Abnormal NA 138 135 - 145 mmol/L K 3.9 3.5 - 5.0 mmol/L CL 103 98 - 108 mmol/L CO2 TOTAL 26 23 - 31 mmol/L AGAP 9 2 - 16 BUN 9 7 - 23 mg/dL GLUCOSE 142 (*) 70 - 110 mg/dL CREATININE 0.68 0.50 - 1.04 mg/dL CALCIUM 9.6 8.6 - 10.6 mg/dL eGFR 118.8 mL/min/1.73m2 URINALYSIS - Abnormal APPEARANCE Clear Clear COLOR Yellow Yellow PH 6.0 4.8 - 8.0 SP GRAVITY 1.018 1.003 - 1.030 GLU U QUAL Normal Normal BLOOD Negative Negative KETONES Negative Negative PROTEIN Negative Negative UROBILIN Normal Normal BILIRUBIN Negative Negative NITRITE Negative Negative LEUK NARINDER 25/uL (*) Negative RBC/HPF <1 0 - 3 HPF WBC/HPF 14 (*) 0 - 5 HPF BACTERIA Few (*) Negative MUCOUS Slight (*) Negative LPF SQ EPITH 2 HPF TYPE AND SCREEN ABO & RH A POSITIVE IAT Negative TOTAL BETA HCG ASSAY BETA HCG 11,908.00 Non- female and male patients: <5 mIU/mL EKG: If EKG completed, see Procedure Note. Orders and Treatments: Orders Placed This Encounter Procedures US first trimester less than 14 weeks with transvaginal CBC WITH DIFF Type and Screen - ONCE Routine TOTAL BETA HCG ASSAY BASIC METABOLIC PANEL (NA, K, CL, CO2, GLUCOSE, BUN, CREATININE, CA) URINALYSIS No orders of the defined types were placed in this encounter. First Provider Eval: ED Events Date/Time Event User Comments 01/06/25 1116 Medical Screening Begins SARAY BAEZ DO -- 01/06/25 1116 First Provider Evaluation SAARY BAEZ DO -- ED COURSE Diagnosis/Impression as of 01/06/25 1342 Pelvic pain affecting in first trimester, antepartum Threatened miscarriage in early Procedures: Procedures MDM: Medical Decision Making The patient presents from home for evaluation for right lower quadrant abdominal pains been present for the past 3 days. No nausea or vomiting. No fevers or chills. No dysuria or hematuria. No vaginal bleeding or discharge. She reports she is newly and is 3 para 1-0-1-1. Her last menstrual period was November 30. She has seen [facility] with this but has not had an ultrasound as of yet. No medication taken for symptoms. Vital signs are stable in ER. Her abdomen is soft but with tenderness in the right lower quadrant. She has no rebound or guarding. Differential diagnosis includes ectopic , miscarriage and less likely appendicitis. Will check laboratory studies including her beta hCG. Her ABO Rh from previous visit is a positive. Will also obtain a transvaginal ultrasound. Final disposition pending. 1341 - the patient is doing well here in the ER. Her urinalysis shows no infection. Her beta hCG is 11,000 908. Her transvaginal ultrasound shows an intrauterine of approximately 5 weeks and 5 days gestation without a heart tone. Suspect this is normal as she is early in her . She will need to follow-up with her [facility]HER in 1 week. She remained stable here in the ER and is okay for discharge home. Problems Addressed: Pelvic pain affecting in first trimester, antepartum: acute illness or injury Threatened miscarriage in early : acute illness or injury Amount and/or Complexity of Data Reviewed Labs: ordered. Decision-making details documented in ED Course. Radiology: ordered and independent interpretation performed. Decision-making details documented in ED Course. Flowsheet Documentation: Scoring Tools: No data recorded Disposition/Condition: ED Disposition ED Disposition Discharge Condition Stable Comment -- Discharge Medications: Patient's Medications START taking these medications No medications on file CONTINUE taking these medications which have NOT CHANGED FLUTICASONE PROPIONATE 0.05 % CREAM Apply to area(s) 2 (two) times daily. PIMECROLIMUS 1 % CREAM Apply to area(s) every morning. Safe for the face. TACROLIMUS 0.1 % OINTMENT Apply to area(s) 2 (two) times daily. Safe for the face. START taking Modified Medications as Prescribed No medications on file STOP taking these medications No medications on file Follow-up: Electronically signed by: Saray Baez DO 01/06/25 1342 [facility] 2025-01-06 08:21:57 Called pt, pt reports right sided pelvic pain x 2 days, 6/10 pain, denies radiation. Reports took tylenol on 01/05/2025 with relief. Reports body aches and chills on left leg only. Denies fever. Denies vaginal bleeding. Advised labs WNL. Provider notified. Pt to follow up with ER for ectopic rule out. Janeth Alarcon RN 01/06/25 8:22 AM RANS REHABILITATION COUNSELOR Janeth Alarcon RN [facility] 2025-01-06 08:11:54 Jackie Rosado is a 34 year old female Pt calling via psychology physician states she has pelvic pain on right side and left leg has chills and some discharge since this weekend. Please call pt at [phone] (home) RANS REHABILITATION COUNSELOR Valerie Jones [facility] 2024-03-04 16:37:05 Copied from [facility] #[id number]. Topic: Clinical - Medical Advice >> Mar 04, 2024 4:33 PM Patient X Ray Service Engineer wrote: Jackie Rosado is a 33 year old female Patient is calling stating that patient went to the [facility] on 02/28 and the pharmacy had not received RX pimecrolimus 1 % cream just yet. Informed patient of note placed on 03/04. Transferred pt and interpretor to Marilu Rajan Ruthie York [facility] 2024-03-04 16:01:24 Spoke to [facility] and they state they do not have the Pimecrolimus 1% cream rx. Spoke to pharmacist and gave a verbal order over the phone for this patient. Patient called clinic with rn referral on the line and wanted to know why we have not called in the rx to the pharmacy because she called and the rx is not there. Advised patient that this nurse called pharmacy at 1601 and gave the rx to the pharmacist and they will get the rx ready for patient. Pt understood. Pt has no other questions or concerns at this time. Mohini Mejia LVN [facility] 2024-02-29 15:24:21 Jackie Rosado is a 33 year old female Patient is calling and states her prescription for pimecrolimus 1 % cream was not received by the pharmacy. I called the pharmacy to confirm they never received it they do not have it, please resend prescription. Rosalind Holloway [facility] 2024-02-28 12:23:19 Nurse called and spoke to PT and advised her of Dr. Abebe's note for medication change. Oksana Marie LVN 02/28/2024 12:23 PM Oksana Marie [facility] 2024-02-28 11:43:46 Sent patient Elimyra instead of Protopic. [facility] 2024-02-26 11:00:52 Copied from [facility] #[id number]. Topic: Clinical - Medical Advice >> Feb 26, 2024 10:59 AM Patient X Ray Service Engineer wrote: Jackie Rosado is a 33 year old female. Patient is calling stating she was prescribed RX tacrolimus 0.1 % ointment on 02/15. She states the RX irritates her and wants to know if she needs to be seen. [phone] (home) Please advise. Ruthie York [facility] 2024-02-16 10:45:00 Addended by: GUILLERMINA ABEBE MD on: 02/28/2024 11:43 AM Modules accepted: Orders [facility]
[2025-09-09] MEDS ORDERED: ONDANSETRON 4 MG/2 ML VIAL ONE (00:45)
[2025-09-09] MEDS ORDERED: NA CHLORIDE 0.9% 1,000 ML ONE ×2 (00:46→01:50)
[2025-09-09] MEDS ORDERED: FAMOTIDINE 20 MG/2 ML VIAL IV ONE (00:46)
[2025-09-09] MEDS ORDERED: MORPHINE 4 MG/ML SYR ONE (00:46)
[2025-09-09 01:08] LABS: Absolute Lymphocytes (CBC) 1.2 K/uL (0.7-4.9); Hematocrit 32.6 % (36.0-45.0); Hemoglobin 11.0 g/dL (12.0-15.0); MCH 28.3 pg (27.0-35.0); MCHC 33.7 g/dL (32.0-36.0); MCV 84.0 fL (80-100); MPV 7.7 fL (7.6-11.3); Nucleated RBC Absolute Count 0.0 (0-0); Nucleated Red Blood Cells % 0.0 % (0-0); RBC Red Blood Cell Count 3.88 M/uL (3.86-4.86); White Blood Count 8.80 thou/uL (4.3-10.9)
[2025-09-09 01:23] LABS: ALT/SGPT 44.0 U/L (13-56); AST/SGOT 37.0 U/L (15-37); Albumin 2.6 g/dL (3.4-5.0); Albumin/Globulin Ratio 0.7 (1.1-1.8); Alkaline Phosphatase 97.0 U/L (45-117); Anion Gap 10.5 mEq/L (5.0-15.0); BUN Blood Urea Nitrogen 8.0 mg/dL (7-18); Globulin 3.6 g/dL (2.3-3.5); Glucose Level 96.0 mg/dL (74-106); Lipase 24.0 U/L (13-75); Potassium 3.5 mEq/L (3.5-5.1)
[2025-09-09] MEDS ORDERED: NA CHLORIDE 0.9% 100 ML ONE (01:50)
[2025-09-09] MEDS ORDERED: PIPERACIL/TAZO 3.375 GM VIAL IV ONE (01:51)
[2025-09-09] MEDS ORDERED: AMOX/K CLAV 875 MG TAB ONE (03:30)
[2025-09-09 03:42] LABS: Sqamous Epithelial None Seen /HPF (None Seen); Urine Culture Reflex Order NOT NEEDED; Urine Microscopic Reflex YN ORDER UMIC
--- NOTE | 2025-09-09 03:54 | ER ---
Nurse's Notes [facility] Name: Jackie Marquez Age: 34 yrs Sex: Female : 1990 Arrival Date: 09/08/2025 Time: 23:59 Bed 7 Private MD: Diagnosis: Nonpurulent mastitis associated with ;Epigastric abdominal tenderness;Other hydronephrosis-left;Other cholelithiasis without obstruction Presentation: 09/09 00:00 Chief complaint: EMS states: MID EPIGASTRIC PAIN THAT STARTED AFTER TAKING TYLENOL. ha1 PAIN AND SWELLING ON THE LEFT BREAST SINCE YESTERDAY. HAD A BABY NINE DAYS AGO. 00:00 Coronavirus screen: Client denies travel out of the [place] in the last 14 days. Ebola ha1 Screen: No symptoms or risks identified at this time. Initial Sepsis Screen: Does the patient meet any 2 criteria? No. Patient's initial sepsis screen is negative. Does the patient have a suspected source of infection? No. Patient's initial sepsis screen is negative. Risk Assessment: Do you want to hurt yourself or someone else? Patient reports no desire to harm self or others. Onset of symptoms was September 09, 2025. 00:00 Method Of Arrival: EMS: [facility] ha1 00:00 Acuity: TONI 3 ha1 Triage Assessment: 00:16 General: Appears uncomfortable, Behavior is cooperative. Pain: Complains of pain in ha1 left breast Pain currently is 7 out of 10 on a pain scale. Quality of pain is described as aching. Neuro: Level of Consciousness is awake, alert, obeys commands, Oriented to person, place, time, situation. Cardiovascular: Capillary refill < 3 seconds Patient's skin is warm and dry. Respiratory: Airway is patent Respiratory effort is even, unlabored, Respiratory pattern is regular, symmetrical. GI: Abdomen is round non-distended. : No signs and/or symptoms were reported regarding the genitourinary system. Derm: Skin is pink, warm \T\ dry. Musculoskeletal: Circulation, motion, and sensation intact. Range of motion: intact in all extremities. Historical: - Allergies: 00:16 No Known Allergies; ha1 - PMHx: 00:16 None; ha1 - Immunization history:: Adult Immunizations up to date. - Infectious Disease History:: Denies. - Social history:: Smoking status: Patient denies any tobacco usage or history of. - Family history:: not pertinent. Screenin:04 [facility] ED Fall Risk Assessment (Adult) History of falling in the last 3 months, ha1 including since admission No falls in past 3 months (0 pts) Confusion or Disorientation No (0 pts) Intoxicated or Sedated No (0 pts) Impaired Gait No (0 pts) Mobility Assist Device Used No (0 pt) Altered Elimination No (0 pt) Score/Fall Risk Level 0 - 2 = Low Risk Oriented to surroundings, Maintained a safe environment, Educated pt \T\ family on fall prevention, incl call for assistance when getting out of bed, Hourly rounding (assess needs \T\ fall precautionary measures) done. Abuse screen: Denies threats or abuse. Denies injuries from another. Nutritional screening: No deficits noted. Tuberculosis screening: No symptoms or risk factors identified. Assessment: 00:04 Reassessment: SEE TRIAGE ASSESSMENT. ha1 01:00 Reassessment: Patient and/or family updated on plan of care and expected duration. Pain ha1 level reassessed. Patient is alert, oriented x 3, equal unlabored respirations, skin warm/dry/pink. 01:20 Reassessment: Patient and/or family updated on plan of care and expected duration. Pain ha1 level reassessed. Patient is alert, oriented x 3, equal unlabored respirations, skin warm/dry/pink. Patient denies pain at this time. Patient states feeling better. Patient states symptoms have improved. 02:00 Reassessment: Patient and/or family updated on plan of care and expected duration. Pain ha1 level reassessed. Patient is alert, oriented x 3, equal unlabored respirations, skin warm/dry/pink. 03:00 Reassessment: Patient and/or family updated on plan of care and expected duration. Pain ha1 level reassessed. Patient is alert, oriented x 3, equal unlabored respirations, skin warm/dry/pink. Patient states feeling better. Patient states symptoms have improved. 04:05 Reassessment: Patient and/or family updated on plan of care and expected duration. Pain ha1 level reassessed. Patient is alert, oriented x 3, equal unlabored respirations, skin warm/dry/pink. Vital Signs: 00:00 BP 126 / 73; Pulse 65; Resp 18 S; Temp 98.5(O); Pulse Ox 100% on R/A; Weight 76 kg; ha1 Height 5 ft. 4 in. ; Pain 7/10; 01:00 BP 116 / 72; Pulse 62; Resp 18 S; Pulse Ox 99% on R/A; ha1 02:00 BP 112 / 72; Pulse 61; Resp 18 S; Pulse Ox 99% on R/A; ha1 03:00 BP 117 / 78; Pulse 63; Resp 18 S; Pulse Ox 100% on R/A; ha1 04:00 BP 120 / 81; Pulse 69; Resp 18 S; Pulse Ox 100% on R/A; ha1 00:00 Body Mass Index 28.76 (76.00 kg, 162.56 cm) ha1 00:00 Pain Scale: Adult ha1 ED Course: 00:04 Patient arrived in ED. vc1 00:04 Patient has correct armband on for positive identification. Placed in gown. Bed in low ha1 position. Call light in reach. Side rails up X 1. Adult w/ patient. Client placed on continuous cardiac and pulse oximetry monitoring. NIBP monitoring applied. presidential helicopter crew chief on. Door closed. Noise minimized. Warm blanket given. Pillow given. 00:04 Arm band placed on right wrist. ha1 00:10 Baldemar Mcnamara MD is Attending Physician. jermaine 00:16 Triage completed. ha1 00:39 Anne Hansen, RN is Primary Nurse. kd3 00:40 CBC with Diff Sent. ha1 00:40 CMP Sent. ha1 00:40 Lipase Sent. ha1 00:40 Inserted saline lock: 20 gauge in left antecubital area, using aseptic technique. Blood ha1 collected. Flushed with 10 mL NS. 01:27 CT Abd/Pelvis - IV Contrast Only In Process Unspecified. EDMS 03:23 UA Rfx Scott Cult if indicated Sent. ha1 03:54 Gavino Chan MD is Referral Physician. jermaine 03:55 US Abdomen Limited In Process Unspecified. EDMS 03:55 US Extrmty Nonvasular Limited: left breast In Process Unspecified. EDMS 04:31 No provider procedures requiring assistance completed. IV discontinued, intact, ha1 bleeding controlled, No redness/swelling at site. Pressure dressing applied. 04:32 Provided Education on: follow ups and medication administration . ha1 Administered Medications: 00:45 Drug: NS 0.9% IV 1000 ml IV at 1 bolus Per protocol; to be given as a bolus over 60 ha1 minutes Route: IV; Rate: 1 bolus; Site: left antecubital; 02:00 Follow up: Response: No adverse reaction; IV Status: Completed infusion ha1 00:47 Drug: Famotidine IVP 20 mg IVP once; dilute with 10 mL 0.9% NaCl; give over 2 minutes ha1 Route: IVP; Site: left antecubital; 01:20 Follow up: Response: No adverse reaction; Marked relief of symptoms ha1 00:48 Drug: Ondansetron IVP 4 mg IVP once; over 2 minutes Route: IVP; Site: left antecubital; ha1 01:20 Follow up: Response: No adverse reaction; Marked relief of symptoms ha1 00:50 Drug: morphine IVP or IV 4 mg IVP once over 4 mins Route: IVP; Infused Over: 4 mins; ha1 Site: left antecubital; 01:20 Follow up: Response: No adverse reaction; Marked relief of symptoms; Pain is decreased; ha1 RASS: Alert and Calm (0) 02:00 Drug: Piperacillin-Tazobactam IVPB 3.375 grams IVPB once over 60 mins; (mix in NS 100 ha1 mL) Route: IVPB; Infused Over: 60 mins; Site: left antecubital; 03:00 Follow up: Response: No adverse reaction; IV Status: Completed infusion; IV Intake: ha1 100ml 02:00 Drug: NS 0.9% IV 1000 ml IV at 125 ml/hr once Route: IV; Rate: 125 ml/hr; Site: left ha1 antecubital; 04:25 Follow up: Response: No adverse reaction; IV Status: Completed infusion; IV Intake: ha1 400ml 03:37 Drug: Amoxicillin-Clavulanate PO 875 mg PO once Route: PO; ha1 04:25 Follow up: Response: No adverse reaction; Marked relief of symptoms ha1 Medication: 00:59 VIS not applicable for this client. ha1 Intake: 03:00 IV: 100ml; Total: 100ml. ha1 04:25 IV: 400ml; Total: 500ml. ha1 Outcome: 03:13 Discharge ordered by MD. jermaine 03:54 Discharge ordered by MD. jermaine 04:31 Discharged to home ambulatory, with family, ha1 04:31 Condition: stable 04:31 Discharge instructions given to patient, Instructed on discharge instructions, follow up and referral plans. medication usage, Demonstrated understanding of instructions, follow-up care, medications, Prescriptions given X 2, 04:33 Patient left the ED. ha1 Signatures: Dispatcher [employer] EDMS Baldemar Mcnamara MD MD cha Doucette, Kyli RN RN kd3 Dona Doe RN RN 1 Indy Russell RN RN ha1 Corrections: (The following items were deleted from the chart) 00:18 00:00 Chief complaint: EMS states: MID EPIGASTRIC PAIN THAT STARTED AFTER TAKING ha1 TYLENOL. PAIN AND SWELLING ON THE LEFT BREAST SINCE YESTERDAY ha1 01:32 01:31 BP 93 / 59; Pulse 59bpm; Resp 16bpm; Pulse Ox 99% RA; kd3 kd3 02:25 00:00 Piperacillin-Tazobactam IVPB 3.375 grams IVPB in left antecubital over 60 mins ha1ha1
--- NOTE | 2025-09-09 03:55 | EDPHYS ---
Physician Documentation [facility] Name: Jackie Marquez Age: 34 yrs Sex: Female : 1990 Arrival Date: 09/08/2025 Time: 23:59 Bed 7 Private MD: Baldemar Harvey HPI: 09/09 00:17 This 34 yrs old Female presents to ER via EMS with complaints of upper abd jermaine pain , eating. 00:17 The patient presents with abdominal pain in the upper abdomen, in the right upper jermaine quadrant. Onset: The symptoms/episode began/occurred 1 day(s) ago. The symptoms radiate to left back. Associated signs and symptoms: Pertinent positives: nausea and vomiting. Modifying factors: The symptoms are alleviated by remaining still, the symptoms are aggravated by food. Historical: - Allergies: 00:16 No Known Allergies; ha1 - PMHx: 00:16 None; ha1 - Immunization history:: Adult Immunizations up to date. - Infectious Disease History:: Denies. - Social history:: Smoking status: Patient denies any tobacco usage or history of. - Family history:: not pertinent. ROS: 00:17 Constitutional: Negative for fever, chills, and weight loss, Eyes: Negative for injury, jermaine pain, redness, and discharge, ENT: Negative for injury, pain, and discharge, Neck: Negative for injury, pain, and swelling, Cardiovascular: Negative for chest pain, palpitations, and edema, Respiratory: Negative for shortness of breath, cough, wheezing, and pleuritic chest pain, Back: Negative for injury and pain, : Negative for injury, bleeding, discharge, and swelling, MS/Extremity: Negative for injury and deformity, Skin: Negative for injury, rash, and discoloration, Neuro: Negative for headache, weakness, numbness, tingling, and seizure, Psych: Negative for depression, anxiety, suicide ideation, homicidal ideation, and hallucinations, Allergy/Immunology: Negative for hives, rash, and allergies, Endocrine: Negative for neck swelling, polydipsia, polyuria, polyphagia, and marked weight changes, Hematologic/Lymphatic: Negative for swollen nodes, abnormal bleeding, and unusual bruising, 00:17 Abdomen/GI: Positive for abdominal pain, of the right upper quadrant, Exam: 00:17 Constitutional: This is a well developed, well nourished patient who is awake, alert, jermaine and in no acute distress. Head/Face: Normocephalic, atraumatic. Eyes: Pupils equal round and reactive to light, extra-ocular motions intact. Lids and lashes normal. Conjunctiva and sclera are non-icteric and not injected. Cornea within normal limits. Periorbital areas with no swelling, redness, or edema. ENT: Nares patent. No nasal discharge, no septal abnormalities noted. Tympanic membranes are normal and external auditory canals are clear. Oropharynx with no redness, swelling, or masses, exudates, or evidence of obstruction, uvula midline. Mucous membranes moist. Neck: Trachea midline, no thyromegaly or masses palpated, and no cervical lymphadenopathy. Supple, full range of motion without nuchal rigidity, or vertebral point tenderness. No Meningismus. Chest/axilla: Normal chest wall appearance and motion. Nontender with no deformity. No lesions are appreciated. Cardiovascular: Regular rate and rhythm with a normal S1 and S2. No gallops, murmurs, or rubs. Normal PMI, no JVD. No pulse deficits. Respiratory: Lungs have equal breath sounds bilaterally, clear to auscultation and percussion. No rales, rhonchi or wheezes noted. No increased work of breathing, no retractions or nasal flaring. Back: No spinal tenderness. No costovertebral tenderness. Full range of motion. Female : Normal external genitalia. Skin: Warm, dry with normal turgor. Normal color with no rashes, no lesions, and no evidence of cellulitis. MS/ Extremity: Pulses equal, no cyanosis. Neurovascular intact. Full, normal range of motion., bilateral aka Neuro: Awake and alert, GCS 15, oriented to person, place, time, and situation. Cranial nerves II-XII grossly intact. Motor strength 5/5 in all extremities. Sensory grossly intact. Cerebellar exam normal. Normal gait. Psych: Awake, alert, with orientation to person, place and time. Behavior, mood, and affect are within normal limits. 00:17 Abdomen/GI: Inspection: abdomen appears normal, Bowel sounds: normal, Palpation: mild abdominal tenderness, in the right upper quadrant, moderate abdominal tenderness, Liver: no appreciated palpable abnormalities, Hernia: not appreciated, Vital Signs: 00:00 BP 126 / 73; Pulse 65; Resp 18 S; Temp 98.5(O); Pulse Ox 100% on R/A; Weight 76 kg; ha1 Height 5 ft. 4 in. ; Pain 7/10; 01:00 BP 116 / 72; Pulse 62; Resp 18 S; Pulse Ox 99% on R/A; ha1 02:00 BP 112 / 72; Pulse 61; Resp 18 S; Pulse Ox 99% on R/A; ha1 03:00 BP 117 / 78; Pulse 63; Resp 18 S; Pulse Ox 100% on R/A; ha1 04:00 BP 120 / 81; Pulse 69; Resp 18 S; Pulse Ox 100% on R/A; ha1 00:00 Body Mass Index 28.76 (76.00 kg, 162.56 cm) ha1 00:00 Pain Scale: Adult ha1 MDM: 00:10 Medical Screening Exam initiated jermaine 00:21 Differential diagnosis: cholecystitis, Cholelithiasis, diverticulitis, gastritis, jermaine gastroesophageal reflux disease, Mesenteric ischemia or infarction, non-specific abd pain, pancreatitis, Pyelonephritis, Ureterolithiasis, urinary tract infection. Data reviewed: vital signs, nurses notes, lab test result(s), radiologic studies, CT scan. Consideration of Admission/Observation Escalation of care including admission/observation considered. I considered the following discharge prescriptions or medication management in the emergency department Medications were administered in the Emergency Department. See MAR. Independent interpretation of the following test(s) in the Emergency Department CT Scan: My interpretation is ct abd pelvis. Test considered but Not performed: Ultrasound us not in house. Historians other than the Patient: Spouse/Significant Other: spouse well informed. Care significantly affected by the following chronic conditions: none , sp . 03:52 ED course: DAWN KHALIL PT OPTIONS, ADMIT OR DC, PT WILL GO HOME WITH PO ABX , FOLLOW UP [facility] DR Naheed CABRALES. 09/09 00:16 Order name: CBC with Diff; Complete Time: 01:15 [facility] 09/09 00:16 Order name: CMP; Complete Time: 01:25 [facility] 09/09 00:16 Order name: Lipase; Complete Time: 01:25 [facility] 09/09 00:16 Order name: Test, Urine; Complete Time: 03:04 [facility] 09/09 03:08 Order name: UA Rfx Scott Cult if indicated; Complete Time: 03:44 [facility] 09/09 00:16 Order name: CT Abd/Pelvis - IV Contrast Only 09/09 03:14 Order name: US Abdomen Limited 09/09 03:14 Order name: US Extrmty Nonvasular Limited: left breast 09/09 00:16 Order name: IV Saline Lock; Complete Time: 00:40 [facility] 09/09 00:16 Order name: Labs collected and sent; Complete Time: 00:40 [facility] 09/09 03:13 Order name: Misc. Order: collect more urine for lab. ; Complete Time: 03:23 kmf Administered Medications: 00:45 Drug: NS 0.9% IV 1000 ml IV at 1 bolus Per protocol; to be given as a bolus over 60 ha1 minutes Route: IV; Rate: 1 bolus; Site: left antecubital; 02:00 Follow up: Response: No adverse reaction; IV Status: Completed infusion ha1 00:47 Drug: Famotidine IVP 20 mg IVP once; dilute with 10 mL 0.9% NaCl; give over 2 minutes ha1 Route: IVP; Site: left antecubital; 01:20 Follow up: Response: No adverse reaction; Marked relief of symptoms ha1 00:48 Drug: Ondansetron IVP 4 mg IVP once; over 2 minutes Route: IVP; Site: left antecubital; ha1 01:20 Follow up: Response: No adverse reaction; Marked relief of symptoms ha1 00:50 Drug: morphine IVP or IV 4 mg IVP once over 4 mins Route: IVP; Infused Over: 4 mins; ha1 Site: left antecubital; 01:20 Follow up: Response: No adverse reaction; Marked relief of symptoms; Pain is decreased; ha1 RASS: Alert and Calm (0) 02:00 Drug: Piperacillin-Tazobactam IVPB 3.375 grams IVPB once over 60 mins; (mix in NS 100 ha1 mL) Route: IVPB; Infused Over: 60 mins; Site: left antecubital; 03:00 Follow up: Response: No adverse reaction; IV Status: Completed infusion; IV Intake: ha1 100ml 02:00 Drug: NS 0.9% IV 1000 ml IV at 125 ml/hr once Route: IV; Rate: 125 ml/hr; Site: left ha1 antecubital; 04:25 Follow up: Response: No adverse reaction; IV Status: Completed infusion; IV Intake: ha1 400ml 03:37 Drug: Amoxicillin-Clavulanate PO 875 mg PO once Route: PO; ha1 04:25 Follow up: Response: No adverse reaction; Marked relief of symptoms ha1 Disposition Summary: 09/09/25 03:54 Discharge Ordered Notes: Location: Home(09/09/25 03:54) jermaine Problem: new(09/09/25 03:54) jermaine Symptoms: have improved(09/09/25 03:54) jermaine Condition: Stable(09/09/25 03:54) jermaine Diagnosis - Nonpurulent mastitis associated with (09/09/25 03:54) jermaine - Epigastric abdominal tenderness(09/09/25 03:54) jermaine - Other hydronephrosis - left jermaine - Other cholelithiasis without obstruction jermaine Followup: jermaine - With: Private Physician - When: 2 - 3 days - Reason: Recheck today's complaints, Continuance of care, Re-evaluation by your physician Followup: jermaine - With: Gavino Cabrales MD - When: 2 - 3 days - Reason: Recheck today's complaints, Re-evaluation by your physician Discharge Instructions: - Discharge Summary Sheet jermaine - Abdominal Pain, Adult jermaine - Mastitis jermaine - Cholelithiasis jermaine - and Mastitis jermaine - Cholelithiasis, [id number] jermaine - Abdominal Pain, Adult, [id number] jermaine - Hydronephrosis jermaine - Breast Tenderness jermaine - Cholecystitis, [id number] jermaine - and Breast Care jermaine - and Breast Care, [id number] [facility] Forms: - Medication Reconciliation Form jermaine - Antibiotic Education jermaine - Prescription Opioid Use jermaine - Patient Portal Instructions [facility] - Leadership Thank You Letter [facility] Prescriptions: - Augmentin 875-125 mg Oral Tablet - take 1 tablet ORAL route every 12 hours for 10 days; 20 tablet; Refills: 0, [facility] Product Selection Permitted - Tylenol 325 mg Oral tablet - take 2 tablets ORAL route every 6 hours as needed; 36 tablet; Refills: 0, [facility] Product Selection Permitted Signatures: Dispatcher [employer] Baldemar Pagan MD MD cha Ayala, Heidy RN RN ha1 [facility] Corrections: (The following items were deleted from the chart) 03:13 03:13 Home jermaine jermaine 03:13 03:13 new [facility] : 03:13 have improved jermaine [facility] 03:13 Stable [facility] : 03:13 Epigastric abdominal tenderness [facility] 03:13 Nonpurulent mastitis associated with [facility] : 03:14 Extrmty Nonvasular Limited+[id number] ordered. EDMS EDMS
--- NOTE | 2025-09-09 04:36 | RAD REPORT ---
EXAM: CT Abdomen and Pelvis With Intravenous Contrast CLINICAL HISTORY: The patient is 34 years old and is Female; ABD PAIN TECHNIQUE: Axial computed tomography images of the abdomen and pelvis with intravenous contrast. Sagittal an d coronal reformatted images were created and reviewed. This CT exam was performed using one or more of the following dose reduction techniques: automated exposure control, adjustment of the mA a nd/or kV according to patient size, and/or use of iterative reconstruction technique. COMPARISON: No relevant prior studies available. FINDINGS: LUNG BASES: Minimal dependent densities in the lung bases are present. No consolidation. ABDOMEN: LIVER: The liver is enlarged and mildly fatty. GALLBLADDER AND BILE DUCTS: The gallbladder is distended. No calcified gallstones or ductal dilat ation is seen. PANCREAS: No ductal dilation. No mass. SPLEEN: The spleen is enlarged and heterogeneous. ADRENALS: Unremarkable. No mass. KIDNEYS AND URETERS: Mild left hydroureteronephrosis is present. An obstructing calculus is not s een. The kidneys enhance symmetrically. STOMACH AND BOWEL: The stomach is minimally distended with fluid and air. The small bowel is norm al in caliber. Stool is present throughout the colon. There is no mucosal thickening or evidence of obstruction. PELVIS: APPENDIX: The appendix is normal in caliber without surrounding inflammation. BLADDER: The bladder is significantly distended. No mass. REPRODUCTIVE: The uterus is enlarged with minimal fluid and high density material in the endometr ial cavity. ABDOMEN and PELVIS: INTRAPERITONEAL SPACE: Unremarkable. No free air. No significant fluid collection. BONES/JOINTS: No acute fracture. SOFT TISSUES: Tiny fat-containing umbilical hernia is present. VASCULATURE: A few calcified phleboliths are present within the pelvis. No abdominal aortic ane urysm. LYMPH NODES: Unremarkable. No enlarged lymph nodes. IMPRESSION: 1. Mild left hydroureteronephrosis without obstructing calculus. Findings may be secondary to recen tly passed stone. 2. Enlarged uterus with minimal fluid and high density material in the endometrial canal which may be secondary to blood products. Enlarged uterus is favored to be secondary to recent gravid state. 3. Hepatosplenomegaly with mild hepatic steatosis. Electronically signed by: Farnaz Torres MD 09/09/2025 02:52 AM CDT RP Due to temporary technical issues with the depict/[employer] reporting system, reports are being lazarus d by the in-house radiologist without review as a courtesy to ensure prompt reporting the interpreting radiologist is fully responsible for the content of the report. Transcribed Date/Time: 09/09/2025 4:36 AM
--- NOTE | 2025-09-09 08:26 | RAD REPORT ---
EXAM: Ultrasound abdomen limited CLINICAL DATA: 34 years Female ABD PAIN TECHNICAL DATA: Limited sonographic imaging of the right upper quadrant was performed on 09/09/2025 at 3: 34 AM. Imag ing was performed to assess the gallbladder. Comparison: CT abdomen and pelvis performed on 09/09/2025 at 1:22 AM. FINDINGS: The gallbladder is well-distended. There are multiple shadowing intraluminal echoes within the depend ent portion of the gallbladder lumen consistent with gallstones. The gallbladder wall measures approximately 1 mm in diameter. There is no evidence of pericholecystic fluid. The common bile duct m easures approximately 3 to 4 mm in diameter. There is no evidence of biliary ductal dilatation. There is an incidental small fundal Phrygian cap. IMPRESSION: Cholelithiasis without evidence of biliary ductal dilatation, gallbladder wall thickening or perichol ecystic fluid. Electronically signed by: Chanda Bragg DO 09/09/2025 05:21 AM CDT RP Due to temporary technical issues with the PACS/[employer] reporting system, reports are being lazarus d by the in-house radiologist without review as a courtesy to ensure prompt reporting the interpreting radiologist is fully responsible for the content of the report. Transcribed Date/Time: 09/09/2025 8:26 AM
--- NOTE | 2025-09-09 08:27 | RAD REPORT ---
EXAM: Left breast ultrasound CLINICAL INDICATION: 34-year-old female with pain and swelling in left breast, patient is breast-feeding TECHNIQUE: Ultrasound imaging of the left breast was performed in all quadrants as well as the retroareolar loca tion on 09/09/2025 at 3: 39 AM. Imaging of the axilla was not performed at this time. . COMPARISONS: No prior studies were available for comparison. FINDINGS: Sonographic imaging of the left breast was performed and demonstrates mild reticulation of the subcut aneous soft tissues consistent with edema. There is retroareolar duct ectasia. There is some echogenic debris within the dilated retroareolar ducts. These findings are nonspecific but can be see n with mastitis. No focal solid or cystic mass lesion is identified. There is no evidence of focal posterior acoustica l shadowing. Doppler imaging was not utilized for this examination. IMPRESSION: 1. Mild edema of the subcutaneous soft tissues of the left breast. 2. Retroareolar duct ectasia with some echogenic debris within the dilated ducts. These findings ar e nonspecific but can be seen with mastitis. 3. No focal solid or cystic mass lesion is identified. Doppler imaging was not utilized for this ex amination. BI-RADS Category 2: Benign findings. RECOMMENDATIONS: 1. Continue close clinical follow-up. 2. Recommend follow-up imaging in a dedicated Breast Imaging Center. Electronically signed by: Chanda Bragg DO 09/09/2025 06:06 AM [facility] Due to temporary technical issues with the PACS/[employer]rike[employer] reporting system, reports are being lazarus d by the in-house radiologist without review as a courtesy to ensure prompt reporting the interpreting radiologist is fully responsible for the content of the report. Transcribed Date/Time: 09/09/2025 8:27 AM
[2025-09-09 14:02] VITALS: TEMP 98.5
[2025-09-09 14:07] VITALS: O2SAT 100
[2025-09-09 14:09] VITALS: BP 120/81
== END 2025-09-09 04:33 | disposition home or self-care (01) ==
LOC: ER 23:59
DX: K80.80 Other cholelithiasis without obstruction (principal); N13.39 Other hydronephrosis; O91.23 Nonpurulent mastitis associated with lactation
CPT/HCPCS: 96365; 96361; 85025; 81001; 36415; 81025; 83690; 80053; 74177; 76705; 76882; 96375; 99285; Q9967; J2543; J2405; J7030 ×2

== ENCOUNTER 2025-09-12 04:18 | Observation (INO) | payer OTHER ==
--- OUTSIDE RECORDS SUMMARY | 2025-09-12 04:26 | XMS REPORT | Continuity of Care Document ---
Author Name Unknown Address [address] [facility] [address] [place] [address] Organization [facility] Address [address] [facility] [place] [address] Care Team Providers Care Financial Adviser Name Role Phone KATLIN WARD Primary Care Physician Unavailab RON Wisdom Attending Clinician Unavailable BALDEMAR ARRINGTON Attending Clinician Unavailable BALDEMAR ARRINGTON Attending Clinician Unavailable Sharlene Samano MD Attending Clinician Adalid Self MD Attending Clinician + [phone] ZORA YOUNG Attending Clinician Unavailable ZORA YOUNG Attending Clinician Unavailable Champ Kimberley WELSH Attending Clinician + HEIDY VITAL Attending Clinician Unavaila MAME Ha Attending Clinician Unavailable Doctor Unassigned, [place] Attending Clinician U navailable KIMBERLEY OAKES Attending Clinician Unavail able SUMA CHEN Attending Clinician Unavailable SUMA CHEN Attending Clinician Unavailable Heidy Vital CNM Attending Clinician [phone] Ultrasound, Pradipnikos Attending Clinician Unavaila Ruby Rhoades MD Attending Clinician ARABELLA SAMUEL Attending Clinician Unavailable [facility] Attending Clinician Unava ilERIKA Romeo Attending Clinician Unavailable ERIKA PARR Attending Clinician Unavailable MIKIE DEGROOT Attending Clinician Unavailable MIKIE DEGROOT Attending Clinician Unavailable LADONNA GOLDSTEIN Attending Clinician Unav ailLADONNA Rodgers Attending Clinician Unav glenn Goldstein MD, Ladonna Diaz Attending Clinician + Johan PADILLA, Katlin Attending Clinician [phone] KATLIN WARD Attending Clinician Unavailable SEBLE VALENZUELA Attending Clinician Unavailab DAYANA Lopez Attending Clinician Unavailable DAYANA JESSICA Attending Clinician Unavailable Peter PADILLA, Heidy Attending Clinician [phone] SARAY BAEZ Attending Clinician Unavailab SARAY Resendez Attending Clinician Unavailab MARY Vega Attending Clinician Unavailable Nurse, [facility] Obgyree Attending Clini marimar Unavailable Kimberley Farr Attending Clinician + Terrell JIMENEZ, Guillermina Fuchs Attending Clinician NIMISHA BECKMAN Attending Clinician Unavailab bronson Beckman MD, Nimisha Sutherland Attending Clinician [phone] MICHAEL SEVILLA Attending Clinician Unavailable MICHAEL SEVILLA Attending Clinician Unavailable Michael Sevilla MD Attending Clinician [phone] Visit, [facility] Nurse Attending Clinician Unava ilHeidy Luna CNM Attending Clinician [phone] Provider, [facility] Temp Attending Clinician Daysi vailatristan Jeong NP, Bonny Attending Clinician [phone] BONNY JEONG Attending Clinician Unavailable ARABELLA SAMUEL Admitting Clinician Unavailable ERIKA PARR Admitting Clinician Unavailable BALDEMAR ARRINGTON Admitting Clinician Unavailable ZORA YOUNG Admitting Clinician Unavailable SEBLE VALENZUELA Admitting Clinician Unavailab SARAY Resendez Admitting Clinician Unavailab bronson Payers Payer Name Policy Type Policy Number Effective Date Expirati on Date Source [facility] CHIP JEISON LOW FPL [id number] 2024 00:00:00 [facility] TP30 EMERGENCY MEDICAID [id number] 2025 00:00:00 2025 00:00:00 Problems Condition Name Condition Details Condition Category Status Onset Date Resolution Date Last Treatment Date Treating Clinician Comments Source (spontaneo us vaginal delivery) (spontaneo us vaginal delivery) Disease Active 2024-11 0-05 00:00: 00 [facility] Single liveborn Single liveborn Disease Active 2024-11 0-05 00:00: 00 [facility] 39 weeks gestation of 39 weeks gestation of Disease Active 2024-11 0-03 00:00: 00 [facility] Bacterial vaginosis in Bacterial vaginosis in Disease Active 2024-11 0-03 00:00: 00 [facility] 38 weeks gestation of 38 weeks gestation of Disease Active 2024-11 0-02 00:00: 00 [facility] Obesity (BMI 30-39.9) Obesity (BMI 30-39.9) Disease Active 2024-11 0-02 00:00: 00 [facility] Dizziness Dizziness Disease Active 9-10 00:00: 00 [facility] Vertigo Vertigo Disease Active 0 9-10 00:00: 00 [facility] Anxiety during in third trimester, antepartum Anxiety during in third trimester, antepartum Disease Active 8-05 00:00: 00 [facility] Depression during , antepartum Depression during , antepartum Disease Active 8-05 00:00: 00 [facility] Anemia of mother in , antepartum Anemia of mother in , antepartum Disease Active 0 6-12 00:00: 00 [facility] Heartburn during Heartburn during Disease Active 0 4-16 00:00: 00 [facility] Acute UTI (urinary tract infection) Acute UTI (urinary tract infection) Disease Active 0 2-27 00:00: 00 [facility] Rubella non-immune status, antepartum Rubella non-immune status, antepartum Disease Active 0 2-07 00:00: 00 [facility] Dermatitis of face Dermatitis of face Disease Active 0 2-06 00:00: 00 [facility] Obesity affecting Obesity affecting Disease Active 0 2-06 00:00: 00 [facility] History of miscarriag e, currently History of miscarriag e, currently Disease Active 0 2-06 00:00: 00 [facility] History of migraine with aura History of migraine with aura Disease Active 0 4-30 00:00: 00 [facility] Urinary tract infection in mother during third trimester of Urinary tract infection in mother during third trimester of Disease Resolve d 2024-0 2-27 00:00: 00 2025-08-29 00:00:00 2025-08-29 13:16:24 [facility] 35 weeks gestation of 35 weeks gestation of Disease Resolve d 2024-0 9-10 00:00: 00 2025-08-13 00:00:00 2025-08-13 14:06:03 [facility] Headache Headache Disease Resolve d 2024-0 9-10 00:00: 00 2025-08-07 00:00:00 2025-08-07 08:49:56 [facility] Tinnitus of both ears Tinnitus of both ears Disease Resolve d 2024-0 8-01 00:00: 00 2025-08-07 00:00:00 2025-08-07 08:50:09 [facility] Low-lying placenta Low-lying placenta Disease Resolve d 2024-0 7-09 00:00: 00 2025-08-07 00:00:00 2025-08-07 08:49:48 [facility] 30 weeks gestation of 30 weeks gestation of Disease Resolve d 2024-0 8-05 00:00: 00 2025-07-08 00:00:00 2025-07-08 13:30:13 [facility] Uterine size-date discrepanc y in second trimester Uterine size-date discrepanc y in second trimester Disease Resolve d 2024-0 6-11 00:00: 00 2025-06-04 00:00:00 2025-06-04 09:09:59 [facility] Acute cough Acute cough Disease Resolve d 2024-0 2-27 00:00: 00 2025-02-25 00:00:00 2025-02-25 15:23:23 [facility] Subchorion ic hemorrhage of placenta in first trimester Subchorion ic hemorrhage of placenta in first trimester Disease Resolve d 2-27 00:00: 00 2025-02-25 00:00:00 2025-02-25 15:24:06 [facility] Abdominal pain affecting Abdominal pain affecting Disease Resolve d 2-27 00:00: 00 2025-01-29 00:00:00 2025-01-29 12:02:01 [facility] Upper respirator y tract infection, unspecifie d type Upper respirator y tract infection, unspecifie d type Disease Resolve d 2-27 00:00: 00 2025-01-29 00:00:00 2025-01-29 12:02:02 [facility] Vaginal bleeding affecting early Vaginal bleeding affecting early Disease Resolve d 2-27 00:00: 00 2025-01-28 00:00:00 2025-01-28 15:12:38 [facility] Other general counseling and advice for contracept michael management Other general counseling and advice for contracept michael management Disease Resolve d 4-30 00:00: 00 2025-01-02 00:00:00 2025-01-02 12:56:23 [facility] Need for HPV vaccinatio n Need for HPV vaccinatio n Disease Resolve d 2022-11 2-06 00:00: 00 2025-01-02 00:00:00 2025-01-02 12:56:23 [facility] Allergies, Adverse Reactions, Alerts Allergy Name Allergy Type Status Severity Reaction(s) Onset Date Inactive Date Treating Clinician Comments Source NO KNOWN ALLERGIE S Drug Class Active [facility] Social History Social Habit Start Date Stop Date Quantity Comments Source ASSERTION 2024-12-14 00:00:00 Not [facility] Sexual orientation [facility] Alcoholic beverage intake 2025-08-30 00:00:00 2025-08-30 00:00:00 Lifetime non-drinker (finding) [facility] History of Social function 2025-01-24 00:00:00 2025-01-24 00:00:00 [facility] Alcohol intake 2024-03-26 00:00:00 2024-03-26 00:00:00 Lifetime non-drinker (finding) [facility] Tobacco use and exposure 2023-09-18 00:00:00 2023-09-18 00:00:00 Smokeless tobacco non-user [facility] Sex assigned at 1990 00:00:00 1990 00:00:00 [facility] Smoking Status Start Date Stop Date Source Never smoked tobacco [facility] Medications Ordered Medication Name Filled Medication Name Start Date Stop Date Current Medication? Ordering Clinician Indication Dosage Frequency Signature (SIG) Comments Components Source cyclobenzap rine (FLEXERIL) tablet 5 mg cyclobenzap rine (FLEXERIL) tablet 5 mg 2024-11 02:30: 00 08-31 02:08 :00 Yes 5mg 5 mg, Oral, ONCE, 1 dose, On 08/30/25 at 2130, Routine [facility] vitamin w/FA tablet 2024-11 00:00: 00 Yes [id number] 1{tbl} Take 1 tablet by mouth daily. [facility] docusate 100 mg capsule 2024-11 00:00: 00 Yes [id number] 200mg Take 2 capsules by mouth once daily as needed for Constipati on. [facility] ferrous sulfate 325 mg (65 mg iron) tablet 2024-11 00:00: 00 Yes [id number] 325mg Take 1 tablet by mouth daily. [facility] ibuprofen 800 mg tablet 2024-11 00:00: 00 Yes [id number] 800mg Take 1 tablet by mouth every 8 hours as needed (pain). Take with food or milk. [facility] ibuprofen (IBU) tablet 600 mg ibuprofen (IBU) tablet 600 mg 2024-11 21:15: 00 08-31 21:36 :30 Yes 600mg 600 mg, Oral, TID, First dose on 08/30/25 at 1615, Until Discontinu ed, Routine [facility] acetaminoph en (TYLENOL) tablet 650 mg acetaminoph en (TYLENOL) tablet 650 mg 2024-11 0 19:00: 00 08-31 21:36 :30 Yes 650mg 650 mg, Oral, TID, First dose on 08/30/25 at 1400, Until Discontinu ed, Routine [facility] rho(D) immune globulin (RHOPHYLAC) injection 300 mcg 2024-11 0 18:56: 39 08-31 21:36 :30 No 300ug [facility] diphenhydrA MINE (BENADRYL) tablet 25 mg 2024-11 18:56: 36 08-31 21:36 :30 No 25mg [facility] ondansetron (ZOFRAN (PF)) injection 4 mg ondansetron (ZOFRAN (PF)) injection 4 mg 2024-11 18:56: 36 08-31 21:36 :30 Yes 4mg 4 mg, Slow IV Push, Q8HPRN, Starting on 08/30/25 at 1356, Until 08/31/25 at 1636, Administer over 2-5 Minutes, 2 mL [facility] simethicone (GAS RELIEF (SIMETHICON E)) chewable tablet 160 mg simethicone (GAS RELIEF (SIMETHICON E)) chewable tablet 160 mg 2024-11 18:56: 36 08-31 21:36 :30 Yes 160mg 160 mg, Oral, PC+HSPRN, Starting on 08/30/25 at 1356, Until 08/31/25 at 1636, Routine, Gas [facility] docusate (COLACE) capsule 200 mg docusate (COLACE) capsule 200 mg 2024-11 0-04 18:56: 36 08-31 21:36 :30 Yes 200mg 200 mg, Oral, QDAILYPRN, Starting on 08/30/25 at 1356, Until 08/31/25 at 1636, Routine, Constipati on [facility] magnesium hydroxide (MILK OF MAGNESIA) 400 mg/5 mL suspension 30 mL 2024-11 004 18:56: 36 08-31 21:36 :30 No 30mL [facility] benzocaine- menthol (DERMOPLAST ) 20-0.5 % topical spray benzocaine- menthol (DERMOPLAST ) 20-0.5 % topical spray 2024-11 0 18:56: 35 08-31 21:36 :30 Yes Topical, PRN, Starting on 08/30/25 at 1356, Until 08/31/25 at 1636, Routine, Perineum discomfort [facility] metroNIDAZO LE (FLAGYL) tablet 500 mg metroNIDAZO LE (FLAGYL) tablet 500 mg 2024-11 01:00: 00 08-30 18:56 :38 Yes 500mg 500 mg, Oral, Q12H, 8 doses, First dose on Mon08/29/25 at 2000, Last dose on Mon09/02/25 at 0800, Routine, Reason for Anti-Infec tive: Documented Infection, Documented Infection Site: Abdominal, Pelvic, Duration of therapy: Once (ED) [facility] ropivacaine 0.2 % (NAROPIN (PF)) epidural infusion 2024-11 23:22: 00 08-30 18:57 :50 No Epidural, CONTINUOUS PRN, Starting on Mon08/29/25 at 1822, Until 08/30/25 at 1357, Routine, Intra-op [facility] lidocaine-e pinephrine (XYLOCAINE W/EPINEPHRI NE) 1.5 %-1:200,000 injection 2024-11 003 23:19: 00 08-30 18:57 :50 No Epidural, ONCE INTRA PROCEDURE, Starting on Mon08/29/25 at 1819, Until 08/30/25 at 1357, Routine, Intra-op [facility] lactated ringers IV infusion 500 mL 2024-11 0-03 22:00: 00 08-29 23:36 :22 No 500mL at 999 mL/hr, 500 mL, IV Infusion, ONCE, 1 dose, On Mon08/29/25 at 1700, Routine [facility] ondansetron (ZOFRAN (PF)) injection 4 mg ondansetron (ZOFRAN (PF)) injection 4 mg 2024-11 22:00: 00 08-29 21:08 :00 Yes 4mg 4 mg, Slow IV Push, ONCE, On Mon08/29/25 at 1700, For 1 dose, Please give medication over 2-5 minutes. [facility] sodium citrate-cit irene acid (BICITRA) 500-334 mg/5 mL solution 30 mL 2024-11 21:00: 30 08-29 23:01 :00 No 30mL 30 mL, Oral, PRE-PROCED URE ONCE, 1 dose, Starting on Mon08/29/25 at 1600, Until Mon08/29/25 at 1801, Routine, Surgery/Pr ocedure [facility] Oxytocin in Normal Saline 30 unit/500 [...] hr then 150 mL/hr for 1 hr. [facility] D5W-LR IV infusion 1,000 mL 2024-11 003 17:10: 36 08-30 18:56 :38 No 1000mL at 1-75 mL/hr, IV Infusion, TITRATE, Starting on Mon08/29/25 at 1210, Until 08/30/25 at 1356, Routine [facility] metroNIDAZO LE 500 mg tablet 08-26 00:00: 00 Yes [id number] 500mg Take 1 tablet by mouth 2 times daily. [facility] diphenhydrA MINE (BENADRYL) tablet 25 mg diphenhydrA MINE (BENADRYL) tablet 25 mg 08-06 08:15: 00 08-06 08:11 :00 Yes 25mg 25 mg, Oral, Once, 1 dose, On Mon08/06/25 at 0315, Routine [facility] metoclopram sixto HCl (REGLAN) tablet 10 mg metoclopram sixto HCl (REGLAN) tablet 10 mg 08-06 08:15: 00 08-06 08:11 :00 Yes 10mg 10 mg, Oral, Once, 1 dose, On Mon08/06/25 at 0315, Routine [facility] acetaminoph en (TYLENOL) tablet 650 mg 08-06 01:30: 00 08-06 01:37 :00 No 650mg 650 mg, Oral, ONCE, 1 dose, On Mon08/05/25 at 2030, RAFFAELE [facility] diphenhydrA MINE 25 mg tablet 08-06 00:00: 00 08-31 00:00 :00 No [id number] 25mg Take 1 tablet by mouth every 6 hours as needed for Sleep or Other (take with Reglan for Headaches) . [facility] metoclopram sixto HCl 10 mg tablet 08-06 00:00: 08-31 00:00 :00 No [id number] 10mg Take 1 tablet by mouth every 6 hours as needed (take with benadryl for headache). [facility] cefTRIAXone (ROCEPHIN) 1,000 mg in sterile water for injection 10 mL IV Push 08-05 23:30: 00 08-05 23:48 :00 No 1000mg 1,000 mg, Intravenou s, ONCE, 1 dose, On Mon08/05/25 at 1830, 10 mL, Reason for Anti-Infec tive: Documented Infection, Documented Infection Site: Urine, Duration of therapy: Once (ED) [facility] NaCl 0.9% (NS) bolus infusion 1,000 mL 08-05 22:30: 00 08-06 01:36 :00 No 1000mL at 999 mL/hr, 1,000 mL, IV Infusion, ONCE, 1 dose, On Mon08/05/25 at 1730, RAFFAELE [facility] ondansetron (ZOFRAN (PF)) injection 4 mg 08-05 21:45: 00 08-05 23:24 :00 No 4mg 4 mg, Slow IV Push, ONCE, 1 dose, On Mon08/05/25 at 1645, Administer over 2-5 Minutes, 2 mL [facility] ondansetron 4 mg disintegrat ing tablet 08-05 00:00: 00 08-31 00:00 :00 No [id number] 4mg Take 1 tablet by mouth every 8 hours as needed for Nausea and Vomiting (N/V). [facility] cephALEXin 500 mg capsule 08-05 00:00: 00 08-13 04:59 :00 Yes [id number] 500mg Take 1 capsule by mouth 4 times daily for 7 days. [facility] hydrOXYzine 25 mg tablet 8-15 00:00: 00 08-31 00:00 :00 No [id number] 25mg Take 1 tablet by mouth every 6 hours as needed for Itching. [facility] ondansetron 4 mg tablet 8-05 00:00: 00 08-31 00:00 :00 No [id number] 4mg Take 1 tablet by mouth every 8 hours as needed for Nausea and Vomiting (N/V). [facility] hydrOXYzine 10 mg tablet 07-01 00:00: 00 07-11 00:00 :00 No [id number] 10mg Take 1 tablet by mouth every 6 hours as needed for Itching or Anxiety. [facility] maalox/diph enhydrAMINE :lidocaine2 %viscous 1:1:1: suspension (COMPOUNDED ) 05-08 06:15: 00 05-08 06:21 :00 No 15mL 15 mL, Oral, ONCE, 1 dose, On Mon05/08/25 at 0115, Routine [facility] Iron Fum & P-FA-Vit B & C No.9 (INTEGRA PLUS) 125 mg iron- 1 mg Cap 05-08 00:00: 00 07-10 00:00 :00 No [id number] 1{capsu le} Take 1 capsule by mouth daily. [facility] metroNIDAZO LE 500 mg tablet 5-14 00:00: 00 05-06 00:00 :00 No [id number] 500mg Take 1 tablet by mouth 2 (two) times daily. [facility] PNV 67-iron ps-folate no.1-dha (VITAFOL ULTRA) 29 mg iron- 1 mg-200 mg Cap -16 00:00: 00 08-31 00:00 :00 No [id number] 1{capsu le} Take 1 capsule by mouth daily. [facility] esomeprazol e 20 mg capsule 16 00:00: 00 08-31 00:00 :00 No [id number] 20mg Take 1 capsule by mouth daily before a meal. [facility] PNV no.95/sandra us fum/folic ac ( ORAL) 2-28 11:07: 05 03-12 00:00 :00 No Take by mouth. [facility] cefdinir 300 mg capsule 2-25 00:00: 00 01-29 05:59 :00 No [id number] 4 300mg Take 1 capsule by mouth every 12 (twelve) hours for 7 days. [facility] proMETHazin e 25 mg tablet 2-20 00:00: 00 08-07 00:00 :00 No [id number] 25mg Take 1 tablet by mouth every 4 (four) hours as needed for Nausea and Vomiting (N/V). [facility] norethindro ne 0.35 mg tablet 03-26 00:00: 00 01-02 00:00 :00 No [id number] 1{tbl} Take 1 tablet by mouth daily. [facility] pimecrolimu s 1 % cream 4- 00:00: 00 08-31 00:00 :00 No [id number] Apply to area(s) every morning. Safe for the face. [facility] tacrolimus 0.1 % ointment 3 00:00: 00 08-31 00:00 :00 No [id number] Apply to area(s) 2 (two) times daily. Safe for the face. [facility] fluticasone propionate 0.05 % cream 2- 00:00: 00 08-31 00:00 :00 No [id number] Apply to area(s) 2 (two) times daily. [facility] doxycycline monohydrate 100 mg capsule 2-08 00:00: 00 01-02 00:00 :00 No [id number] 100mg Take 1 capsule by mouth 2 (two) times daily. [facility] medroxyPROG ESTERone (DEPO-PROVE RA) syringe 150 mg 2022-11 1-07 16:00: 00 11-26 15:59 :00 No [id number] 150mg [facility] Immunizations Ordered Immunization Name Filled Immunization Name Date Status Comments Source MMR 2025-08-31 00:00:00 Completed [facility] Flu Injectable MDCK Pres-Free (FLUCELVAX) 2025-08-13 00:00:00 Completed [facility] TDAP 2025-06-17 00:00:00 Completed [facility] Flu Injectable MDCK Pres-Free (FLUCELVAX) 2025-01-02 00:00:00 Completed [facility] HPV9 2024-03-26 00:00:00 Completed HPV9 2023-11-01 00:00:00 Completed Influenza Virus Vaccine Quad .5 mL IM 6+ MO (FLUZONE/FLULAVAL/F LUARIX) 2023-11-01 00:00:00 Completed [facility] HPV9 2023-09-18 00:00:00 Completed [facility] Influenza Virus Vaccine Quad .5 mL IM 6+ MO (FLUZONE/FLULAVAL/F LUARIX) Unknown Completed [facility] HPV9 Unknown Completed [facility] Influenza Virus Vaccine Quad .5 mL IM 6+ MO (FLUZONE/FLULAVAL/F LUARIX) Unknown Completed [facility] HPV9 Unknown Completed [facility] HPV9 Unknown Completed [facility] Influenza Virus Vaccine Quad .5 mL IM 6+ MO (FLUZONE/FLULAVAL/F LUARIX) Unknown Completed [facility] HPV9 Unknown Completed [facility] Influenza Virus Vaccine Quad .5 mL IM 6+ MO (FLUZONE/FLULAVAL/F LUARIX) Unknown Completed [facility] HPV9 Unknown Completed [facility] Influenza Virus Vaccine Quad .5 mL IM 6+ MO (FLUZONE/FLULAVAL/F LUARIX) Unknown Completed [facility] HPV9 Unknown Completed [facility] Influenza Virus Vaccine Quad .5 mL IM 6+ MO (FLUZONE/FLULAVAL/F LUARIX) Unknown Completed [facility] HPV9 Unknown Completed [facility] Influenza Virus Vaccine Quad .5 mL IM 6+ MO (FLUZONE/FLULAVAL/F LUARIX) Unknown Completed [facility] HPV9 Unknown Completed [facility] HPV9 Unknown Completed [facility] HPV9 Unknown Completed [facility] HPV9 Unknown Completed [facility] HPV9 Unknown Completed [facility] Influenza Virus Vaccine Quad .5 mL IM 6+ MO (FLUZONE/FLULAVAL/F LUARIX) Unknown Completed [facility] Vital Signs Vital Name Observation Time Observation Value Comments S ource Systolic blood pressure 2025-08-31 12:37:00 106 mm[Hg] [facility] Diastolic blood pressure 2025-08-31 12:37:00 72 mm[Hg] [facility] Heart rate 2025-08-31 12:37:00 70 /min Unive [facility] Body temperature 2025-08-31 12:37:00 36.5 Claudia [facility] Respiratory rate 2025-08-31 12:37:00 18 /min [facility] Oxygen saturation in Arterial blood by Pulse oximetry 2025-08-31 12:37:00 98 /min [facility] Body height 2025-08-29 15:55:00 160 cm [facility] Body weight 2025-08-29 15:55:00 83.553 kg [facility] BMI 2025-08-29 15:55:00 32.64 kg/m2 [facility] Systolic blood pressure 2025-08-29 04:24:00 115 mm[Hg] [facility] Diastolic blood pressure 2025-08-29 04:24:00 69 mm[Hg] [facility] Heart rate 2025-08-29 04:24:00 92 /min [facility] Respiratory rate 2025-08-29 04:24:00 17 /min [facility] Oxygen saturation in Arterial blood by Pulse oximetry 2025-08-29 04:24:00 98 /min [facility] Body temperature 2025-08-29 00:30:00 36.94 Claudia [facility] Body weight 2025-08-29 00:21:00 84.913 kg [facility] BMI 2025-08-29 00:21:00 33.16 kg/m2 [facility] Systolic blood pressure 2025-08-27 19:33:00 111 mm[Hg] [facility] Diastolic blood pressure 2025-08-27 19:33:00 68 mm[Hg] [facility] Heart rate 2025-08-27 19:33:00 86 /min Un[facility] Body temperature 2025-08-27 19:33:00 35.94 Claudia [facility] Respiratory rate 2025-08-27 19:33:00 18 /min [facility] Body height 2025-08-27 19:33:00 160 cm [facility] Body weight 2025-08-27 19:33:00 84.233 kg [facility] BMI 2025-08-27 19:33:00 32.90 kg/m2 [facility] Systolic blood pressure 2025-08-20 19:58:00 111 mm[Hg] [facility] Diastolic blood pressure 2025-08-20 19:58:00 66 mm[Hg] [facility] Heart rate 2025-08-20 19:58:00 75 /min [facility] Body temperature 2025-08-20 19:58:00 36.22 Claudia [facility] Respiratory rate 2025-08-20 19:58:00 19 /min [facility] Body height 2025-08-20 19:58:00 160 cm [facility] Body weight 2025-08-20 19:58:00 84.029 kg [facility] BMI 2025-08-20 19:58:00 32.82 kg/m2 [facility] Systolic blood pressure 2025-08-13 19:01:00 103 mm[Hg] [facility] Diastolic blood pressure 2025-08-13 19:01:00 65 mm[Hg] [facility] Heart rate 2025-08-13 19:01:00 82 /min [facility] Body temperature 2025-08-13 19:01:00 36.39 Claudia [facility] Respiratory rate 2025-08-13 19:01:00 20 /min [facility] Body height 2025-08-13 19:01:00 160 cm [facility] acute hospital Body weight 2025-08-13 19:01:00 84.029 kg [facility] acute hospital BMI 2025-08-13 19:01:00 32.82 kg/m2 General acute hospital Systolic blood pressure 2025-08-06 19:02:00 100 mm[Hg] [facility] Diastolic blood pressure 2025-08-06 19:02:00 67 mm[Hg] [facility] Heart rate 2025-08-06 19:02:00 90 /min [facility] Body temperature 2025-08-06 19:02:00 36.83 Claudia [facility] Respiratory rate 2025-08-06 19:02:00 17 /min [facility] Body height 2025-08-06 19:02:00 160 cm [facility] acute hospital Body weight 2025-08-06 19:02:00 83.065 kg [facility] acute hospital BMI 2025-08-06 19:02:00 32.44 kg/m2 [facility] acute hospital Heart rate 2025-08-06 09:07:00 75 /min [facility] Oxygen saturation in Arterial blood by Pulse oximetry 2025-08-06 09:07:00 98 /min [facility] Systolic blood pressure 2025-08-06 09:00:00 96 mm[Hg] [facility] Diastolic blood pressure 2025-08-06 09:00:00 58 mm[Hg] [facility] Respiratory rate 2025-08-06 09:00:00 18 /min [facility] Body temperature 2025-08-06 07:50:00 36.72 Claudia [facility] Body height 2025-08-06 07:16:00 160 cm [facility] acute hospital Body weight 2025-08-06 07:16:00 82.555 kg [facility] acute hospital BMI 2025-08-06 07:16:00 32.24 kg/m2 General acute hospital Body temperature 2025-08-06 01:37:00 36.67 Claudia [facility] Diastolic blood pressure 2025-08-06 01:36:00 66 mm[Hg] [facility] Heart rate 2025-08-06 01:36:00 84 /min [facility] Respiratory rate 2025-08-06 01:36:00 16 /min [facility] Systolic blood pressure 2025-08-06 01:36:00 100 mm[Hg] [facility] Oxygen saturation in Arterial blood by Pulse oximetry 2025-08-06 01:00:00 100 /min [facility] Body height 2025-08-05 21:31:12 160 cm [facility] acute hospital Body weight 2025-08-05 21:31:12 82.6 kg [facility] acute hospital BMI 2025-08-05 21:31:12 32.26 kg/m2 General acute hospital Systolic blood pressure 2025-07-22 14:49:00 100 mm[Hg] [facility] Diastolic blood pressure 2025-07-22 14:49:00 65 mm[Hg] [facility] Heart rate 2025-07-22 14:49:00 84 /min [facility] Body temperature 2025-07-22 14:49:00 35.89 Claudia [facility] Respiratory rate 2025-07-22 14:49:00 18 /min [facility] Body height 2025-07-22 14:49:00 160 cm [facility] acute hospital Body weight 2025-07-22 14:49:00 81.92 kg [facility] acute hospital BMI 2025-07-22 14:49:00 31.99 kg/m2 General acute hospital Systolic blood pressure 2025-07-08 13:44:00 100 mm[Hg] [facility] Diastolic blood pressure 2025-07-08 13:44:00 59 mm[Hg] [facility] Heart rate 2025-07-08 13:44:00 79 /min [facility] Body temperature 2025-07-08 13:44:00 36.17 Claudia [facility] Respiratory rate 2025-07-08 13:44:00 17 /min [facility] Body height 2025-07-08 13:44:00 160 cm [facility] acute hospital Body weight 2025-07-08 13:44:00 81.307 kg General acute hospital BMI 2025-07-08 13:44:00 31.75 kg/m2 General acute hospital Systolic blood pressure 2025-07-01 08:26:00 103 mm[Hg] [facility] Diastolic blood pressure 2025-07-01 08:26:00 59 mm[Hg] [facility] Heart rate 2025-07-01 08:26:00 85 /min [facility] Respiratory rate 2025-07-01 08:26:00 17 /min [facility] Oxygen saturation in Arterial blood by Pulse oximetry 2025-07-01 08:26:00 99 /min [facility] Body temperature 2025-07-01 07:43:00 36.56 Claudia [facility] Body height 2025-07-01 07:43:00 160 cm [facility] acute hospital Systolic blood pressure 2025-06-27 11:56:00 99 mm[Hg] [facility] Diastolic blood pressure 2025-06-27 11:56:00 58 mm[Hg] [facility] Heart rate 2025-06-27 11:56:00 78 /min [facility] Body temperature 2025-06-27 11:56:00 35.72 Claudia [facility] Respiratory rate 2025-06-27 11:56:00 18 /min [facility] Body height 2025-06-27 11:56:00 160 cm [facility] acute hospital Body weight 2025-06-27 11:56:00 80.967 kg General acute hospital BMI 2025-06-27 11:56:00 31.62 kg/m2 General acute hospital Systolic blood pressure 2025-06-26 19:07:00 112 mm[Hg] [facility] Diastolic blood pressure 2025-06-26 19:07:00 68 mm[Hg] [facility] Heart rate 2025-06-26 19:07:00 83 /min [facility] Body temperature 2025-06-26 19:07:00 36.06 Claudia [facility] Respiratory rate 2025-06-26 19:07:00 18 /min [facility] Body height 2025-06-26 19:07:00 160 cm Univ [facility] Body weight 2025-06-26 19:07:00 81.012 kg Univ [facility] BMI 2025-06-26 19:07:00 31.64 kg/m2 Univ [facility] Systolic blood pressure 2025-06-17 20:29:00 109 mm[Hg] [place] [facility] Diastolic blood pressure 2025-06-17 20:29:00 71 mm[Hg] [facility] Heart rate 2025-06-17 20:29:00 88 /min [facility] Body temperature 2025-06-17 20:29:00 36.22 Claudia [facility] Respiratory rate 2025-06-17 20:29:00 18 /min [facility] Body height 2025-06-17 20:29:00 160 cm [facility] acute hospital Body weight 2025-06-17 20:29:00 81.761 kg Univ [facility] BMI 2025-06-17 20:29:00 31.93 kg/m2 [facility] Systolic blood pressure 2025-06-03 15:47:00 94 mm[Hg] [facility] Diastolic blood pressure 2025-06-03 15:47:00 62 mm[Hg] [facility] Heart rate 2025-06-03 15:47:00 87 /min [facility] Body temperature 2025-06-03 15:47:00 36.44 Claudia [facility] Respiratory rate 2025-06-03 15:47:00 17 /min [facility] Body height 2025-06-03 15:47:00 160 cm [facility] acute hospital Body weight 2025-06-03 15:47:00 79.039 kg [facility] acute hospital BMI 2025-06-03 15:47:00 30.87 kg/m2 [facility] Systolic blood pressure 2025-05-08 19:54:00 104 mm[Hg] [facility] Diastolic blood pressure 2025-05-08 19:54:00 64 mm[Hg] [place] [facility] Heart rate 2025-05-08 19:54:00 83 /min [facility] Body temperature 2025-05-08 19:54:00 36.56 Claudia [facility] Respiratory rate 2025-05-08 19:54:00 17 /min [facility] Body height 2025-05-08 19:54:00 160 cm [facility] acute hospital Body weight 2025-05-08 19:54:00 78.529 kg [facility] acute hospital BMI 2025-05-08 19:54:00 30.67 kg/m2 [facility] acute hospital Systolic blood pressure 2025-05-08 07:11:00 108 mm[Hg] [place] [facility] Diastolic blood pressure 2025-05-08 07:11:00 63 mm[Hg] [facility] Heart rate 2025-05-08 07:11:00 80 /min [facility] Body temperature 2025-05-08 07:11:00 36.78 Claudia [facility] Respiratory rate 2025-05-08 07:11:00 16 /min [facility] Oxygen saturation in Arterial blood by Pulse oximetry 2025-05-08 07:11:00 99 /min [facility] Body height 2025-05-08 05:50:00 160 cm [facility] acute hospital Body weight 2025-05-08 05:50:00 78.926 kg [facility] acute hospital BMI 2025-05-08 05:50:00 30.82 kg/m2 [facility] acute hospital Systolic blood pressure 2025-05-06 19:30:00 93 mm[Hg] [facility] Diastolic blood pressure 2025-05-06 19:30:00 61 mm[Hg] [facility] Heart rate 2025-05-06 19:30:00 81 /min [facility] Body temperature 2025-05-06 19:30:00 36.44 Claudia [facility] Respiratory rate 2025-05-06 19:30:00 17 /min [facility] Body height 2025-05-06 19:30:00 160 cm [facility] Body weight 2025-05-06 19:30:00 78.926 kg [facility] acute hospital BMI 2025-05-06 19:30:00 30.82 kg/m2 [facility] acute hospital Systolic blood pressure 2025-04-07 17:58:00 117 mm[Hg] [facility] Diastolic blood pressure 2025-04-07 17:58:00 72 mm[Hg] [facility] Heart rate 2025-04-07 17:58:00 97 /min [facility] Body temperature 2025-04-07 17:58:00 36.56 Claudia [facility] Respiratory rate 2025-04-07 17:58:00 18 /min [facility] Body height 2025-04-07 17:58:00 160 cm [facility] Body weight 2025-04-07 17:58:00 75.978 kg [facility] acute hospital BMI 2025-04-07 17:58:00 29.67 kg/m2 [facility] acute hospital Body weight 2025-03-25 19:37:00 76.261 kg [facility] acute hospital BMI 2025-03-25 19:37:00 29.78 kg/m2 General acute hospital Systolic blood pressure 2025-03-25 19:37:00 109 mm[Hg] [facility] Diastolic blood pressure 2025-03-25 19:37:00 60 mm[Hg] [facility] Heart rate 2025-03-25 19:37:00 75 /min [facility] Body temperature 2025-03-25 19:37:00 36.61 Claudia [facility] Respiratory rate 2025-03-25 19:37:00 18 /min [facility] Body height 2025-03-25 19:37:00 160 cm [facility] Systolic blood pressure 2025-03-12 19:52:00 103 mm[Hg] [facility] Diastolic blood pressure 2025-03-12 19:52:00 64 mm[Hg] [facility] Heart rate 2025-03-12 19:52:00 82 /min [facility] Body temperature 2025-03-12 19:52:00 36.5 Claudia [facility] Respiratory rate 2025-03-12 19:52:00 16 /min [facility] Body height 2025-03-12 19:52:00 160 cm Univ [facility] Body weight 2025-03-12 19:52:00 75.807 kg Univ [facility] BMI 2025-03-12 19:52:00 29.60 kg/m2 [facility] Systolic blood pressure 2025-02-25 20:51:00 105 mm[Hg] [facility] Diastolic blood pressure 2025-02-25 20:51:00 62 mm[Hg] [facility] Heart rate 2025-02-25 20:51:00 81 /min [facility] Body temperature 2025-02-25 20:51:00 36.78 Claudia [facility] Respiratory rate 2025-02-25 20:51:00 18 /min [facility] Body height 2025-02-25 20:51:00 160 cm Univ [facility] Body weight 2025-02-25 20:51:00 76.715 kg Univ [facility] BMI 2025-02-25 20:51:00 29.96 kg/m2 [facility] Systolic blood pressure 2025-01-28 20:43:00 117 mm[Hg] [facility] Diastolic blood pressure 2025-01-28 20:43:00 73 mm[Hg] [facility] Heart rate 2025-01-28 20:43:00 89 /min [facility] Body temperature 2025-01-28 20:43:00 36.94 Claudia [facility] Respiratory rate 2025-01-28 20:43:00 18 /min [facility] Body height 2025-01-28 20:43:00 160 cm Univ [facility] Body weight 2025-01-28 20:43:00 79.918 kg Univ [facility] BMI 2025-01-28 20:43:00 31.21 kg/m2 General acute hospital Systolic blood pressure 2025-01-24 17:07:00 98 mm[Hg] [facility] Diastolic blood pressure 2025-01-24 17:07:00 65 mm[Hg] [facility] Heart rate 2025-01-24 17:07:00 85 /min [facility] Body temperature 2025-01-24 17:07:00 36.83 Claudia [facility] Respiratory rate 2025-01-24 17:07:00 18 /min [facility] Body height 2025-01-24 17:07:00 160 cm [facility] acute hospital Body weight 2025-01-24 17:07:00 80.423 kg [facility] acute hospital BMI 2025-01-24 17:07:00 31.41 kg/m2 [facility] acute hospital Oxygen saturation in Arterial blood by Pulse oximetry 2025-01-24 17:07:00 97 /min [facility] Body temperature 2025-01-21 21:30:27 36.39 Claudia [facility] Systolic blood pressure 2025-01-21 21:09:57 107 mm[Hg] [facility] Diastolic blood pressure 2025-01-21 21:09:57 61 mm[Hg] [facility] Heart rate 2025-01-21 21:09:57 88 /min [facility] Respiratory rate 2025-01-21 21:09:57 18 /min [facility] Oxygen saturation in Arterial blood by Pulse oximetry 2025-01-21 21:09:57 99 /min [facility] Body height 2025-01-21 19:31:00 162.6 cm [facility] acute hospital Body weight 2025-01-21 19:31:00 81.647 kg General acute hospital BMI 2025-01-21 19:31:00 30.90 kg/m2 [facility] acute hospital Systolic blood pressure 2025-01-06 17:12:00 120 mm[Hg] [facility] Diastolic blood pressure 2025-01-06 17:12:00 79 mm[Hg] [facility] Heart rate 2025-01-06 17:12:00 92 /min [facility] Body temperature 2025-01-06 17:12:00 37.11 Claudia [facility] Respiratory rate 2025-01-06 17:12:00 15 /min [facility] Body height 2025-01-06 17:12:00 157.5 cm [facility] acute hospital Body weight 2025-01-06 17:12:00 81.647 kg [facility] acute hospital BMI 2025-01-06 17:12:00 32.92 kg/m2 [facility] acute hospital Oxygen saturation in Arterial blood by Pulse oximetry 2025-01-06 17:12:00 100 /min [facility] Systolic blood pressure 2025-01-02 18:49:00 109 mm[Hg] [facility] Diastolic blood pressure 2025-01-02 18:49:00 71 mm[Hg] [facility] Heart rate 2025-01-02 18:49:00 87 /min [facility] Body temperature 2025-01-02 18:49:00 36.72 Claudia [facility] Respiratory rate 2025-01-02 18:49:00 18 /min [facility] Body height 2025-01-02 18:49:00 160 cm [facility] acute hospital Body weight 2025-01-02 18:49:00 82.64 kg General acute hospital BMI 2025-01-02 18:49:00 32.27 kg/m2 General acute hospital Systolic blood pressure 2024-03-26 17:31:00 122 mm[Hg] [facility] Diastolic blood pressure 2024-03-26 17:31:00 79 mm[Hg] [facility] Heart rate 2024-03-26 17:31:00 84 /min [facility] Body temperature 2024-03-26 17:31:00 36.22 Claudia [facility] Respiratory rate 2024-03-26 17:31:00 18 /min [facility] Body height 2024-03-26 17:31:00 160 cm [facility] acute hospital Body weight 2024-03-26 17:31:00 87.136 kg General acute hospital BMI 2024-03-26 17:31:00 34.03 kg/m2 General acute hospital Systolic blood pressure 2023-12-26 14:56:00 124 mm[Hg] [place] [facility] Diastolic blood pressure 2023-12-26 14:56:00 75 mm[Hg] [facility] Heart rate 2023-12-26 14:56:00 79 /min [facility] Body temperature 2023-12-26 14:56:00 36.22 Claudia [facility] Respiratory rate 2023-12-26 14:56:00 18 /min [facility] Body height 2023-12-26 14:56:00 160 cm [facility] acute hospital Body weight 2023-12-26 14:56:00 82.283 kg General acute hospital BMI 2023-12-26 14:56:00 32.13 kg/m2 [facility] acute hospital Body temperature 2023-11-01 20:39:00 36.44 Claudia [facility] Body temperature 2023-11-01 21:01:00 36.44 [facility] Systolic blood pressure 2023-10-03 15:39:00 118 mm[Hg] [facility] Diastolic blood pressure 2023-10-03 15:39:00 71 mm[Hg] [facility] Heart rate 2023-10-03 15:39:00 81 /min [facility] Body temperature 2023-10-03 15:39:00 36.06 Caludia [facility] Respiratory rate 2023-10-03 15:39:00 18 /min [facility] Body height 2023-10-03 15:39:00 160 cm [facility] acute hospital Body weight 2023-10-03 15:39:00 78.654 kg General acute hospital BMI 2023-10-03 15:39:00 30.72 kg/m2 General acute hospital Systolic blood pressure 2023-09-18 19:25:00 131 mm[Hg] [place] [facility] Diastolic blood pressure 2023-09-18 19:25:00 86 mm[Hg] [facility] Heart rate 2023-09-18 19:25:00 89 /min [facility] Body temperature 2023-09-18 19:25:00 36.22 Claudia [facility] Respiratory rate 2023-09-18 19:25:00 18 /min [facility] Body height 2023-09-18 19:25:00 160 cm estimated [facility] acute hospital Body weight 2023-09-18 19:25:00 77.111 kg [facility] acute hospital BMI 2023-09-18 19:25:00 30.11 kg/m2 [facility] acute hospital Procedures Procedure Date / Time Performed Performing Clinician Source CBC WITH DIFF 2025-08-31 08:50:00 Marah Anaya [facility] VENOUS CORD GAS 2025-08-30 16:33:00 [place], Chr istina Atingreg [facility] CENTRAL NEURAXIAL BLOCK 2025-08-29 23:19:00 Viviane Tang [facility] COMP. METABOLIC PANEL (05370) 2025-08-29 16:34:00 [facility] WITHOUT [facility]FF 2025-08-29 16:34:00 Rafa Dela Cruz [facility] HEPATITIS B SURFACE ANTIGEN 2025-08-29 16:34:00 [facility] TYPE AND SCREEN 2025-08-29 16:34[facility] [facility]MMUNE GLOBULIN 2025-08-29 16:34:00 Maddy Anaya [facility] EXTRA TUBE LAV 2025-08-29 16:34:00 Buddy, Baldemar [facility] EXTRA TUBE SST 2025-08-29 16:34:00 Buddy, Baldemar [facility] HIV 1/2 AG-AB WITH REFLEX 2025-08-29 16:34:00 Lanie [facility] SYPHILIS IGG/IGM 2025-08-29 16:34:00 Rafa Dela Cruz [facility] FLU VACC ([id number]), 6 MO-64 YRS, .5ML, IM, TIV (FLUCELVAX) 2025-08-13 19:05:32 Heidy Vital [facility] GC & CHLAMYDIA AMPLIFIED ASSAY 2025-08-06 19:40:00 Heidy Vital [facility] LIPASE 2025-08-05 22:05:00 Suma Chen [facility] MAGNESIUM 2025-08-05 22:05:00 April Suma G [facility] hospital COMP. METABOLIC PANEL ([id number]) 2025-08-05 22:05:00 Suma Chen [facility] CBC WITH DIFF 2025-08-05 22:05:00 Suma Chen [facility] URINALYSIS 2025-08-05 22:05:00 Suma Chen [facility] acute hospital SECOND AND THIRD TRIMESTER ULTRASOUND 2025-07-08 13:20:00 Heidy Vital [facility] SGOT (ASPARTATE AMINO TRANSFER) 2025-06-17 21:05:00 Heidy Vital [facility] ALANINE AMINO TRANSFERASE(SGPT 2025-06-17 21:05:00 Heidy Vital [facility] TDAP VACCINE, >11 YRS, IM 2025-06-17 20:54:25 Heidy Vital [facility] GLUCOSE 1 HOUR POST PRANDIAL 2025-06-03 16:50:00 Heidy Vital [facility] CBC WITH DIFF 2025-06-03 16:50:00 Heidy Vital [facility] SECOND AND THIRD TRIMESTER ULTRASOUND 2025-05-27 14:29:00 Heidy Vital [facility] POCT URINALYSIS 2025-05-08 19:53:00 Heidy Vital [facility] LIPASE 2025-05-08 06:14:00 Rose Pringle [facility] hospital TROPONIN I 2025-05-08 06:14:00 Rose Pringle [facility] hospital COMP. METABOLIC PANEL ([id number]) 2025-05-08 06:14:00 Rose Pringle [facility] CBC WITH DIFF 2025-05-08 06:14:00 Rose Pringle [facility] POCT URINALYSIS 2025-05-06 19:30:00 Heidy Vital [facility] SECOND AND THIRD TRIMESTER ULTRASOUND 2025-04-24 20:09:00 Heidy Vital [facility] POCT URINALYSIS 2025-04-07 18:11:00 Heidy Vital [facility] POCT URINALYSIS 2025-04-07 17:57:00 Heidy Vital [facility] POCT URINALYSIS 2025-03-25 19:38:00 Heidy Vital [facility] URINE CULTURE 2025-03-12 21:15:00 Heidy Vital [facility] GALV ONLY - VAGINAL PATHOGENS BY NUCLEIC ACID TESTING 2025-03-12 21:15:00 Heidy Vital [facility] POCT URINALYSIS 2025-03-12 19:53:00 Heidy Vital [facility] NIPT - NON-INVASIVE TEST RESULTS 2025-03-10 21:51:52 Doctor Unassigned, [place] [facility] NIPT - NON-INVASIVE TEST RESULTS 2025-03-05 19:50:12 Doctor Unassigned, [place] [facility] POCT URINALYSIS 2025-02-25 20:54:00 Heidy Vital [facility] FIRST TRIMESTER ULTRASOUND 2025-02-12 20:49:00 Heidy Vital [facility] POCT URINALYSIS 2025-01-28 20:51:00 Heidy Vital [facility] TOTAL BETA HCG ASSAY 2025-01-21 20:10:00 Adolfo Jessica [facility] CBC WITH DIFF 2025-01-21 20:10:00 Dayana Jessica [facility] URINALYSIS 2025-01-21 20:10:00 Dayana Jessica [facility] US FIRST TRIMESTER LESS THAN 14 WEEKS WITH TRANSVAGINAL 2025-01-06 18:33:48 Saray Baez [facility] URINALYSIS 2025-01-06 18:10:00 [facility]OL[facility] PAN[facility] (NA, K, CL, CO2, GLUCOSE, BUN, CREATININE, CA) 2025-01-06 18:06:00 Saray Baez [facility] TOTAL BETA HCG ASSAY 2025-01-06 18:06:00 Rubio Baez [facility] CBC WITH DIFF 2025-01-06 18:06:00 Saray Baez [facility] HB ABO GROUPING 2025-01-06 18:06:00 Saray Baez [facility] CBC WITH DIFF 2025-01-02 19:33:00 Heidy Vital [facility] RUBELLA SCREEN IGG 2025-01-02 19:33:00 Kamryn Vital [facility] VZV ANTIBODY SCREEN 2025-01-02 19:33:00 Fanny Vital [facility] HEPATITIS B SURFACE ANTIGEN 2025-01-02 19:33:00 Heidy Vital [facility] HCV ANTIBODY 2025-01-02 19:33:00 Heidy Vital [facility] HB ABO GROUPING 2025-01-02 19:33:00 Heidy Vital [facility] HIV 1/2 AG-AB WITH REFLEX 2025-01-02 19:33:00 Heidy Vital [facility] SYPHILIS IGG/IGM 2025-01-02 19:33:00 Heidy Vital [facility] FLU VACC ([id number]), 6 MO-64 YRS, .5ML, IM, TIV (FLUCELVAX) 2025-01-02 19:19:02 Heidy Vital [facility] POCT TEST 2025-01-02 18:48:00 Fanny Vital [facility] POCT URINALYSIS W/O SPECIFIC GRAVITY 2025-01-02 18:48:00 Heidy Vital [facility] POCT TEST 2024-03-26 17:40:00 Ramón Oakes [facility] GARDASIL 9 (HPV 9V) VACCINE 2024-03-26 17:37:27 Kimberley Oakes [facility] "RWSP VINNIE ONLY" FLU VACC(), 6+ MONTHS, IM, QUAD (FLUZONE/FLULAVAL/FLUAR IX) 2023-11-01 21:02:45 Kimberley Oakes [facility] GARDASIL 9 (HPV 9V) VACCINE 2023-11-01 20:39:16 Kimberley Oakes [facility] POCT TEST 2023-10-03 15:37:00 Fanny Vital [facility] GARDASIL 9 (HPV 9V) VACCINE 2023-09-18 19:55:18 Kimberley Oakes [facility] POCT TEST 2023-09-18 19:35:00 Bonny Jeong [facility] Encounters Start Date/Time End Date/Time Encounter Type Admission Type Attending Clinicians Care Facility Care Department Encounter ID Source 2025-07-01 04:47:45 Outpatient P [facility] [id number] [facility] 2025-05-08 03:18:31 Outpatient X [facility] [id number] [facility] 2025-08-29 10:39:00 2025-08-31 16:36:00 Hospital Encounter P BALDEMAR ARRINGTON COREY [facility] [id number] [facility] 2025-08-29 18:07:00 2025-08-30 12:45:00 Anesthesia Event ShaSharlene fong Craig Davidson [facility] ([facility] 1.2.840.114 350.1.13.10 4.2.7.2.686 [id number] [facility] 2025-08-28 19:07:00 2025-08-28 23:42:00 Hospital Encounter Marshall YOUNG, ZORA YOUNG, ZORA [facility] [id number] [facility] 2025-08-27 14:45:00 2025-08-27 14:55:52 Routine Visit R Kimberley Oakes [facility] COMPREHENSIVE ADVISOR [facility] & CHILD [facility] 1.2.840.114 350.1.13.10 4.2.7.2.686 [id number] 107 [id number] [facility] 2025-08-26 00:00:00 2025-08-26 10:05:54 Telephone Kimberley Oakes [facility] COMPREHENSIVE ADVISOR [facility] & CHILD [facility] 1.2.840.114 350.1.13.10 4.2.7.2.686 [id number] 107 [id number] [facility] 2025-08-20 15:00:00 2025-08-20 15:43:36 Routine Visit R Kimberley Oakes [facility] COMPREHENSIVE ADVISOR [facility] & CHILD [facility] 1.2.840.114 350.1.13.10 4.2.7.2.686 [id number] 107 [id number] [facility] 2025-08-18 00:00:00 2025-08-18 08:36:55 Telephone Kimberley Oakes [facility] COMPREHENSIVE ADVISOR [facility] & CHILD [facility] 1.2.840.114 350.1.13.10 4.2.7.2.686 [id number] 107 [id number] [facility] 2025-08-13 14:45:00 2025-08-13 14:45:00 Outpatient R HEIDY VITAL [facility] [id number] [facility] 2025-08-13 13:45:00 2025-08-13 14:21:08 Routine Visit R MAME BRICEÑO [facility] COMPREHENSIVE ADVISOR [facility] & CHILD [facility] 1..114 350.1.13.10 4.2.7.2.686 [id number] 107 [id number] [facility] 2025-07-07 00:00:00 2025-08-09 18:56:08 Patient Secure Msg Doctor Unassigned, [place] Doctor Unassigned, [place] [facility] 1..114 350.1.13.10 4.2.7.2.686 [id number] [facility] 2025-08-06 13:00:00 2025-08-06 14:50:35 Routine Visit R HEIDY VITAL [facility] COMPREHENSIVE ADVISOR [facility] & CHILD [facility] 1..114 350.1.13.10 4.2.7.2.686 [id number] 107 [id number] [facility] 2025-08-06 02:25:00 2025-08-06 04:25:00 Emergency X YOUNG, ZORA YOUNG, ZORA [facility] [id number] [facility] 2025-08-05 16:37:00 2025-08-05 20:43:00 Emergency X APRIL, SUMA CHEN, SUMA [facility] [id number] [facility] 2025-08-05 00:00:00 2025-08-05 14:37:28 Telephone Heidy Vital [facility] COMPREHENSIVE ADVISOR [facility] & CHILD [facility] 1..114 350.1.13.10 4.2.7.2.686 [id number] 107 [id number] [facility] 2025-07-22 09:30:00 2025-07-22 09:45:00 Routine Visit R Kimberley Oakes [facility] COMPREHENSIVE ADVISOR [facility] & CHILD [facility] 1.2.840.114 350.1.13.10 4.2.7.2.686 [id number] 107 [id number] [facility] 2025-07-10 00:00:00 2025-07-11 11:02:48 Telephone SeniaHeidy thomas [facility] COMPREHENSIVE ADVISOR [facility] & CHILD [facility] 1.2.840.114 350.1.13.10 4.2.7.2.686 [id number] 107 [id number] [facility] 2025-07-11 00:00:00 2025-07-11 06:34:30 Abstract SeniaFanny thomasnda Justus [facility] COMPREHENSIVE ADVISOR [facility] CHILD [facility] 1.2.840.114 350.1.13.10 4.2.7.2.686 [id number] 107 [id number] [facility] 2025-07-08 09:00:00 2025-07-08 09:17:58 Routine Visit R Heidy Vital [facility] COMPREHENSIVE ADVISOR 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7.2.686 [id number] 107 [id number] [facility] 2025-06-26 14:00:00 2025-06-26 14:49:05 Nurse Visit R Visit, [facility] Nurse [facility] COMPREHENSIVE ADVISOR [facility] & CHILD [facility] 1.2.840.114 350.1.13.10 4.2.7.2.686 [id number] 107 [id number] [facility] 2025-06-26 00:00:00 2025-06-26 11:34:50 Telephone Kimberley Oakes [facility] COMPREHENSIVE ADVISOR [facility] & CHILD [facility] 1.2.840.114 350.1.13.10 4.2.7.2.686 [id number] 107 [id number] [facility] 2025-06-17 15:30:00 2025-06-17 16:20:53 Routine Visit R Heidy Vital [facility] COMPREHENSIVE ADVISOR [facility] CHILD [facility] 1.2.840.114 350.1.13.10 4.2.7.2.686 [id number] 107 [id number] [facility] 2025-06-03 10:30:00 2025-06-03 11:21:31 Routine Visit R HEIDY VITAL [facility] 1.2.840.114 350.1.13.10 4.2.7.2.686 [id number] 107 [id number] [facility] 2025-05-28 00:00:00 2025-05-28 07:46:38 Abstract Heidy Vital [facility] COMPREHENSIVE ADVISOR 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 & CHILD [facility] 1.2.840.114 350.1.13.10 4.2.7.2.686 [id number] [facility] 2025-05-20 00:00:00 2025-05-20 15:47:58 Telephone Heidy Vital [facility] COMPREHENSIVE ADVISOR [facility] & CHILD [facility] 1.2.840.114 350.1.13.10 4.2.7.2.686 [id number] 107 [id number] [facility] 2025-05-12 00:00:00 2025-05-12 16:07:58 Telephone Heidy Vital [facility] COMPREHENSIVE ADVISOR [facility] CHILD [facility] 1.2.840.114 350.1.13.10 4.2.7.2.686 [id number] 107 [id number] [facility] 2025-05-08 14:45:00 2025-05-08 15:30:51 Routine Visit R HEIDY VITAL [facility] COMPREHENSIVE ADVISOR [facility] & CHILD [facility] 1.2.840.114 350.1.13.10 4.2.7.2.686 [id number] 107 [id number] [facility] 2025-05-08 00:54:00 2025-05-08 02:42:00 Emergency X ADUM, ERIKA ADUM, ERIKA [facility] [id number] [facility] 2025-05-06 14:00:00 2025-05-06 14:58:00 Routine Visit R Heidy Vital [facility] COMPREHENSIVE ADVISOR [facility] & CHILD [facility] 1.2.840.114 350.1.13.10 4.2.7.2.686 [id number] 107 [id number] [facility] 2025-04-28 00:00:00 2025-04-28 08:12:07 Abstract Heidy Vital [facility] COMPREHENSIVE ADVISOR [facility] & CHILD [facility] 1..840.114 350.1.13.10 4.2.7.2.686 [id number] 107 [id number] [facility] 2025-04-24 14:15:00 2025-04-24 15:08:21 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 MIKIE GREGG SHANNON [facility] COMPREHENSIVE ADVISOR [facility] & CHILD [facility] 1..840.114 350.1.13.10 4.2.7.2.686 [id number] [facility] 2025-04-24 14:15:00 2025-04-24 14:15:00 Outpatient R [facility] [id number] [facility] 2025-04-09 00:00:00 2025-04-09 14:51:40 Telephone Kimberley Oakes [facility] COMPREHENSIVE ADVISOR [facility] & CHILD [facility] 1..840.114 350.1.13.10 4.2.7.2.686 [id number] 107 [id number] [facility] 2025-04-07 13:15:00 2025-04-07 14:03:08 Outpatient R KIMBERLEY OAKES [facility] [id number] [facility] 2025-04-07 13:15:00 2025-04-07 14:03:08 Routine Visit Kimberley Oakes [facility] COMPREHENSIVE ADVISOR [facility] & CHILD [facility] 1..840.114 350.1.13.10 4.2.7.2.686 [id number] 107 [id number] [facility] 2025-03-25 14:45:00 2025-03-25 15:22:11 Outpatient R HEIDY VITAL [facility] [id number] [facility] 2025-03-25 14:45:00 2025-03-25 15:22:11 Routine Visit Heidy Vital [facility] COMPREHENSIVE ADVISOR [facility] & CHILD [facility] 1.2.840.114 350.1.13.10 4.2.7.2.686 [id number] 107 [id number] [facility] 2025-03-14 00:00:00 2025-03-14 12:54:05 Telephone Heidy Vital [facility] COMPREHENSIVE ADVISOR [facility] & CHILD [facility] 1.2.840.114 350.1.13.10 4.2.7.2.686 [id number] 107 [id number] [facility] 2025-03-12 14:45:00 2025-03-12 15:22:10 Outpatient R HEIDY VITAL [facility] [id number] [facility] 2025-03-12 14:45:00 2025-03-12 15:22:10 Routine Visit Heidy Vital [facility] COMPREHENSIVE ADVISOR [facility] CHILD [facility] 1.2.840.114 350.1.13.10 4.2.7.2.686 [id number] 107 [id number] [facility] 2025-03-12 00:00:00 2025-03-12 08:35:29 Telephone Heidy Vital [facility] COMPREHENSIVE ADVISOR [facility] 1.2.840.114 350.1.13.10 4.2.7.2.686 [id number] 107 [id number] [facility] 2025-03-10 00:00:00 2025-03-11 02:05:30 Orders Only Doctor Unassigned, [place] Doctor Unassigned, [place] [facility] 1.2.840.114 350.1.13.10 4.2.7.2.686 [id number] [facility] 2025-03-05 00:00:00 2025-03-06 02:04:24 Orders Only Doctor Unassigned, [place] Doctor Unassigned, [place] [facility] ([place] 1.2.840.114 350.1.13.10 4.2.7.2.686 [id number] [facility] 2025-02-25 15:30:00 2025-02-25 16:20:38 Outpatient HEIDY HOLMAN [facility] [id number] [facility] 2025-02-25 15:30:00 2025-02-25 16:20:38 Routine Visit HEIDY HOLMAN [facility] COMPREHENSIVE ADVISOR [facility] & CHILD [facility] 1.840.114 350.1.13.10 4.2.7.2.686 [id number] 107 [id number] [facility] 2025-02-25 12:30:00 2025-02-25 12:30:00 Outpatient HEIDY HOLMAN [facility] [id number] [facility] 2025-02-12 15:00:00 2025-02-12 15:53:34 Outpatient LADONNA DE LA FUENTE CHASEY [facility] [id number] [facility] 2025-02-12 15:00:00 2025-02-12 15:53:34 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, Ladonna Richards [facility] 1..840.114 350.1.13.10 4.2.7.2.686 [id number] [facility] 2025-01-30 12:30:00 2025-01-30 12:30:00 Outpatient HEIDY HOLMAN [facility] [id number] [facility] 2025-01-30 12:30:00 2025-01-30 12:30:00 Outpatient HEIDY HOLMAN [facility] [id number] [facility] 2025-01-28 15:00:00 2025-01-28 15:29:50 Outpatient HEIDY HOLMAN [facility] [id number] [facility] 2025-01-28 15:00:00 2025-01-28 15:29:50 Routine Visit Heidy Vital [facility] COMPREHENSIVE ADVISOR [facility] CHILD [facility] 1..840.114 350.1.13.10 4.2.7.2.686 [id number] 107 [id number] [facility] 2025-01-24 11:00:00 2025-01-24 11:30:00 Office Visit Katlin Ward [facility] 1..840.114 350.1.13.10 4.2.7.2.686 [id number] [facility] 2025-01-24 11:00:00 2025-01-24 11:00:00 Outpatient R KATLIN WARD [facility] [id number] [facility] 2025-01-23 16:25:00 2025-01-23 20:38:00 Emergency X SEBLE VALENZUELA [facility] [id number] [facility] 2025-01-23 16:25:00 2025-01-23 20:38:00 Emergency X SEBLE VALENZUELA [facility] E[facility] [id number] [facility] 2025-01-23 00:00:00 2025-01-23 14:54:04 Telephone Heidy Vital [facility] COMPREHENSIVE ADVISOR [facility] & CHILD [facility] 1..840.114 350.1.13.10 4.2.7.2.686 [id number] 107 [id number] [facility] 2025-01-21 13:40:00 2025-01-21 16:03:00 Emergency X DAYANA JESSICA ERICCA [facility] [id number] [facility] 2025-01-21 13:40:00 2025-01-21 16:03:00 Emergency X DAYANA JESSICA ERICCA [facility] [id number] [facility] 2025-01-21 00:00:00 2025-01-21 09:55:06 Telephone Heidy Green [facility] COMPREHENSIVE ADVISOR [facility] CHILD [facility] 1.2.840.114 350.1.13.10 4.2.7.2.686 [id number] 107 [id number] [facility] 2025-01-21 00:00:00 2025-01-21 08:53:51 Telephone Heidy Vital [facility] COMPREHENSIVE ADVISOR [facility] CHILD [facility] 1.2.840.114 350.1.13.10 4.2.7.2.686 [id number] 107 [id number] [facility] 2025-01-16 00:00:00 2025-01-16 16:56:49 Telephone Heidy Vital [facility] COMPREHENSIVE ADVISOR [facility] CHILD [facility] 1.2.840.114 350.1.13.10 4.2.7.2.686 [id number] 107 [id number] [facility] 2025-01-06 11:22:00 2025-01-06 14:07:00 [facility] [id number] 2025-01-06 11:22:00 2025-01-06 14:07:00 Emergency X SARAY BAEZ SANDRA [facility] E[facility] [id number] [facility] 2025-01-06 00:00:00 2025-01-06 08:29:29 Telephone Heidy Vital [facility] COMPREHENSIVE ADVISOR [facility] CHILD [facility] 1.2.840.114 350.1.13.10 4.2.7.2.686 [id number] 107 [id number] [facility] 2025-01-02 12:45:00 2025-01-02 13:33:07 Outpatient R HEIDY VITAL [facility] [id number] [facility] 2025-01-02 12:45:00 2025-01-02 13:33:07 Initial Visit Heidy Vital [facility] COMPREHENSIVE ADVISOR [facility] CHILD [facility] 1.840.114 350.1.13.10 4.2.7.2.686 [id number] 107 [id number] [facility] 2024-06-25 13:30:00 2024-06-25 13:30:00 Outpatient R KIMBERLEY OAKES [facility] [id number] [facility] 2024-03-26 14:30:00 2024-03-26 14:30:00 Outpatient R [facility] [id number] [facility] 2024-03-26 13:15:00 2024-03-26 13:30:00 Nurse Visit Nurse, Christian Rmchp Rgv Cprit Obgyn Kimberley Oakes [facility] COMPREHENSIVE ADVISOR [facility] CHILD [facility] 1.840.114 350.1.13.10 4.2.7.2.686 [id number] 107 [id number] [facility] 2024-03-26 13:15:00 2024-03-26 13:01:57 Outpatient R KIMBERLEY OAKES [facility] [id number] [facility] 2024-03-26 12:30:00 2024-03-26 13:01:51 Outpatient R KIMBERLEY OAKES [facility] [id number] [facility] 2024-03-26 12:30:00 2024-03-26 13:01:51 Office Visit Kimberley Oakes [facility] COMPREHENSIVE ADVISOR [facility] CHILD [facility] 1.0.114 350.1.13.10 4.2.7.2.686 [id number] 107 [id number] [facility] 2024-02-29 00:00:00 2024-02-29 00:00:00 Telephone Guillermina Abebe [facility] 1.0.114 350.1.13.10 4.2.7.2.686 [id number] [facility] 2024-02-26 00:00:00 2024-02-26 00:00:00 Telephone Guillermina Abebe [facility] 1..840.114 350.1.13.10 4.2.7.2.686 [id number] [facility] 2024-02-16 10:45:00 2024-02-16 11:11:46 Outpatient NIMISHA VAZQUEZ [facility] [id number] [facility] 2024-02-16 10:45:00 2024-02-16 11:11:46 Office Visit Guillermina Abebe Janice May [facility] 1..840.114 350.1.13.10 4.2.7.2.686 [id number] [facility] 2024-02-09 10:45:00 2024-02-09 10:45:00 Outpatient R [facility] [id number] [facility] 2024-01-09 09:11:18 2024-01-09 09:11:[address] [facility] [id number] Elijah Santos 2024-01-05 08:56:41 2024-01-05 08:56:[address] [facility] [id number] Elijah Santos 2024-01-04 10:00:00 2024-01-04 11:38:15 Outpatient MICHAEL PETERS BRENT [facility] [id number] [facility] 2024-01-04 10:00:00 2024-01-04 11:38:15 Office Visit Guillermina Abebe Brent C [facility] 1.840.114 350.1.13.10 4.2.7.2.686 [id number] [facility] 2023-12-26 09:30:00 2023-12-26 09:30:00 Outpatient R KIMBERLEY OAKES [facility] [id number] [facility] 2023-12-26 09:30:00 2023-12-26 09:30:00 Nurse Visit Visit, Kimberley Avery [facility] COMPREHENSIVE ADVISOR [facility] CHILD [facility] 1..840.114 350.1.13.10 4.2.7.2.686 [id number] 107 [id number] [facility] 2023-12-21 16:46:18 2023-12-21 16:46:18 Outpatient SFA [facility] [id number] Elijah Santos 2023-11-01 14:45:00 2023-11-01 15:00:00 Nurse Visit Nurse, Christian Delgadillo Rgv Cprit Obgyn Kimberley Oakes [facility] COMPREHENSIVE ADVISOR [facility] CHILD [facility] 1..840.114 350.1.13.10 4.2.7.2.686 [id number] 107 [id number] [facility] 2023-11-01 13:30:00 2023-11-01 14:59:42 Outpatient R KIMBERLEY OAKES [facility] [id number] [facility] 2023-11-01 13:30:00 2023-11-01 14:59:42 Nurse Visit Visit, Kimberley Avery [facility] 1..840.114 350.1.13.10 4.2.7.2.686 [id number] 107 [id number] [facility] 2023-11-01 14:45:00 2023-11-01 14:43:09 Outpatient R KIMBERLEY OAKES [facility] [id number] [facility] 2023-11-01 13:30:00 2023-11-01 13:30:00 Outpatient R HEIDY VITAL [facility] [id number] [facility] 2023-10-24 14:30:00 2023-10-24 14:30:00 Outpatient R KIMBERLEY OAKES [facility] [id number] [facility] 2023-10-03 09:45:00 2023-10-03 10:00:54 Outpatient R HEIDY VITAL [facility] [id number] [facility] 2023-10-03 09:45:00 2023-10-03 10:00:54 Office Visit Heidy Vital [facility] CHILD [facility] 1..840.114 350.1.13.10 4.2.7.2.686 [id number] 107 [id number] [facility] 2023-09-18 15:00:00 2023-09-18 16:11:14 Outpatient KIMBERLEY BRUMFIELD [facility] [id number] [facility] 2023-09-18 14:15:00 2023-09-18 16:11:06 Office Visit Provider, Bonny Acevedo [facility] 1..840.114 350.1.13.10 4.2.7.2.686 [id number] 107 [id number] [facility] 2023-09-18 14:15:00 2023-09-18 16:11:06 Outpatient BONNY MEAD [facility] [id number] [facility] 2023-09-18 15:00:00 2023-09-18 15:15:00 Nurse Visit Nurse, Christian Delgadillo Rgv Cprit Obgyn Kimberley Oakes [facility] 1..840.114 350.1.13.10 4.2.7.2.686 [id number] 107 [id number] [facility] Results Test Description Test Time Test Comments Results Result Co mments Source [facility] [id number] 16:51:38* Test Item Value Reference Range Interpretation Comme nts VENOUS BASE EXCESS, CORD (te st code = 5041351919) -7.1 mEq/L VENOUS PH, CORD (test code = 7000916294) 7.28 7.25-7.45 VENOUS PC02, CORD (test code = 1616935879) 42 27-49 VENOUS PO2, CORD (test code = 3853106960) 30 17-41 VENOUS BICARBONATE, CORD (te st code = 5577825679) 19 12-29 QUES [facility] [id number] 16:51:33* Test Item Value Reference Range Interpretation Comme nts BASE EXCESS, CORD (test code = 5512662155) -6.9 mEq/L AC PH, CORD (test code = 5935038960) 7.21 7.18-7.38 PC02, CORD (test code = 5143357168) 55 32-66 PO2, CORD (test code = 7500480869) 32 10-30 H BICARBONATE, CORD (test code = 0907854859) 22 17-27 Lab Interpretation (test cod e = 49187-3) Abnormal [facility] IgG/[id number] 14:47:36* Test Item Value Reference Range Interpretation Comme nts Syphilis IgG/IgM (test code = 13895-6) Nonreactive Nonreactive Syphilis Serology Interpretation (test code = 97092-4) No serologic evidence of syphilis. If recent exposure is suspected, retest in 2 to 4 weeks. VERONICA (test code = VERONICA) ? [facility] Neur[facility] [id number] 23:19:00 Adalid Self MD ? ? 08/29/2025 ?6:20 PM Central Neuraxial Block Date/Time: 08/29/2025 6:19PM Performed by: Viviane Hawthorne MDAuthorized by: Gregory Strickland MD ?Patient Location: OBEnd Time: 08/29/2025 6:19 PMReason for Block: OB request, Patient request, Labor analgesia, Surgical anesthesia and Post-op pain managementStaff: ?Anesthesiologist: Gregory Strickland MD ?Resident/COMMUNITY MUSIC THERAPIST: Viviane Hawthorne MD ?Performed by: resident/CRNAPreanesthetic Checklist: [...] and CHIKA saline ?Guidance with: landmark technique}Epidural/Spinal [place] and/or Catheter: ?Epidural/Spinal Kit: BBraun ?Needle Type: [...] Epidural expectations; PCEA explained and fall precautions given.[facility]Aspartate Amino Transfer)2025-06-18 04:33:49* Test Item Value Reference Range Interpretation Comme [facility] AST(SGOT) (test code = 3352909882) 24 U/L 13-40 Lab Interpretation (test cod e = 62661-6) Normal [facility]aleAlanine Amino Transferase([id number] 04:33:49* Test Item Value Reference Range Interpretation Comme nts ALTv (test code = 1742-6) 21 U/L 5-35 Lab Interpretation (test cod e = 99712-9) Normal [facility] URINAL[facility] W SPECIFIC [id number] 19:53:00* Test Item Value Reference Range Interpretation [...] U APPEAR (test code = 3267) . [facility] URINALYSIS W SPECIFIC [id number] 19:30:00* Test Item Value Reference Range Interpretation [...] U APPEAR (test code = 3267) . [facility] URINALYSIS W SPECIFIC [id number] 18:11:00* Test Item Value Reference Range Interpretation [...] U APPEAR (test code = 3267) . [facility] URINALYSIS W SPECIFIC [id number] 17:57:00* Test Item Value Reference Range Interpretation [...] U APPEAR (test code = 3267) . [facility] URINALYSIS W SPECIFIC [id number] 19:38:00* Test Item Value Reference Range Interpretation [...] U APPEAR (test code = 3267) . [facility] URINALYSIS W SPECIFIC [id number] 19:53:00* Test Item Value Reference Range Interpretation [...] U APPEAR (test code = 3267) . [facility] - NON-INVASIVE TEST RESULTS 2025-03-10 21:51:52Ordered by an unspecified provider.[facility] - NON-INVASIVE TEST [id number] 19:50:12 Ordered by an unspecified provider.[facility] URINALYSIS W SPECIFIC [id number] 20:54:00* Test Item Value Reference Range Interpretation [...] U APPEAR (test code = 3267) . [facility] URINALYSIS W SPECIFIC [id number] 20:51:00* Test Item Value Reference Range Interpretation [...] POCT U APPEAR (test code = 3267) [facility] BETA HCG [id number] 21:25:45* Test Item Value Reference Range Interpretation Comme nts BETA HCG (test code = 6634768380) 211263.00 See_Comment [Automated messa ge] The system which generated this result transmitted reference range: Non- female and male patients: <5 mIU/mL. The reference range was not used to interpret this result as normal/abnormal. VERONICA (test code = VERONICA) Gestational Age ?Range (mIU/mL) 1-10 ?Weeks ?86-62161365-90 Weeks ?56523-88642134-06 Weeks ?4245-43859897-41 Weeks ?1531-102756 Biotin has been reported to cause a negative bias, interpret results relative to patient's use of biotin. [facility] WITH [id number] 20:29:24* Test Item Value Reference Range Interpretation [...] 33.1 g/dL 31.6-35.1 RDW-SD (test code = 93280-8) 38.3 fL 39.0-49.9 L RDW-CV (test code = 788-0) 12.3 % 12.0-15.5 PLT (test code = 777-3) 308 166-358 MPV (test code = 21544-3) 9.4 fL 9.5-12.9 L NRBC/100 WBC (test code = 1307136066) 0.0 0.0-10.0 NRBC x10^3 (test code = 6767269767) See_Comment [Automated messa ge] The system which generated this result transmitted reference range: 10*3/?L. The reference range was not used to interpret this result as normal/abnormal. GRAN MAT (NEUT) % (test code = 770-8) 78.2 % IMM GRAN % (test code = 6870564678) 0.60 % LYMPH % (test code = 736-9) 13.3 % MONO % (test code = 5905-5) 7.6 % EOS % (test code = 713-8) 0.2 % BASO % (test code = 706-2) 0.1 % GRAN MAT x10^3(ANC) (test code = 6051945701) 7.05 10*3/uL 1.88-7.09 IMM GRAN x10^3 (test code = 8104258197) 0.05 10*3/uL 0.00-0.06 LYMPH x10^3 (test code = 731-0) 1.20 10*3/uL 1.32-3.29 L MONO x10^3 (test code = 742-7) 0.69 10*3/uL 0.33-0.92 EOS x10^3 (test code = 711-2) 0.03-0.39 L BASO x10^3 (test code = 704-7) 0.01-0.07 Lab Interpretation (test code = 67913-9) Abnormal [facility]ale[facility] first trimester less than 14 weeks with [id number] 19:12:45EXAM: US FIRST TRIMESTER LESS THAN 14 [...] is unremarkable. Cul-de-sac: No free fluid is present.[facility] BETA HCG ASSAY 2025-01-06 18:56:05* Test Item Value Reference Range Interpretation Comme [facility] BETA HCG (test code = 1272542417) 50957.00 See_Comment [Automated Spotsi] The system which generated this result transmitted reference range: Non- female and male patients: <5 mIU/mL. The reference range was not used to interpret this result as normal/abnormal. VERONICA (test code = VERONICA) Gestational Age ?Range (mIU/mL) 1-10 ?Weeks ?80-78972351-09 Weeks ?26139-64467479-05 Weeks ?3336-89620388-96 Weeks ?8232-222765 Biotin has been reported to cause a negative bias, interpret results relative to patient's use of biotin. [facility] METABOLIC PANEL (NA, K, CL, CO2, GLUCOSE, BUN, CREATININE, CA)2025-01-06 18:36:52* Test Item Value Reference Range Interpretation Comme nts NA (test code = 2274783820) 138 mmol/L 135-145 K (test code = 3951301150) 3.9 mmol/L 3.5-5.0 CL (test code = 4847266869) 103 mmol/L 98-108 CO2 TOTAL (test code = 7234146866) 26 mmol/L 23-31 AGAP (test code = 0862268471) 9 2-16 BUN (test code = 1209878351) 9 mg/dL 7-23 GLUCOSE (test code = 3500541945) 142 mg/dL 70-110 H CREATININE (test code = 2160-0) 0.68 mg/dL 0.50-1.04 CALCIUM (test code = 8666115607) 9.6 mg/dL 8.6-10.6 eGFR (test code = 02625-2) 118.8 mL/min/1.73m2 CKD-EPI eGFR (2020). Assuming creatinine has been stable day-to-day for at least three months, the eGFR indicates Category G1 (>= 90 mL/min/1.73 m2) Lab Interpretation (test code = 93604-2) Abnormal [facility] WITH [id number] 18:24:29* Test Item Value Reference Range Interpretation [...] 33.3 g/dL 31.6-35.1 RDW-SD (test code = 92636-8) 37.5 fL 39.0-49.9 L RDW-CV (test code = 788-0) 12.2 % 12.0-15.5 PLT (test code = 777-3) 328 166-358 MPV (test code = 18726-6) 9.3 fL 9.5-12.9 L NRBC/100 WBC (test code = 6543151086) 0.0 0.0-10.0 NRBC x10^3 (test code = 1575669581) See_Comment [Automated Korema ge] The system which generated this result transmitted reference range: 10*3/?L. The reference range was not used to interpret this result as normal/abnormal. GRAN MAT (NEUT) % (test code = 770-8) 75.9 % IMM GRAN % (test code = 5481314491) 0.40 % LYMPH % (test code = 736-9) 17.9 % MONO % (test code = 5905-5) 5.1 % EOS % (test code = 713-8) 0.3 % BASO % (test code = 706-2) 0.4 % GRAN MAT x10^3(ANC) (test code = 5708003429) 5.76 10*3/uL 1.88-7.09 IMM GRAN x10^3 (test code = 2674397434) 0.03 10*3/uL 0.00-0.06 LYMPH x10^3 (test code = 731-0) 1.36 10*3/uL 1.32-3.29 MONO x10^3 (test code = 742-7) 0.39 10*3/uL 0.33-0.92 EOS x10^3 (test code = 711-2) 0.03-0.39 L BASO x10^3 (test code = 704-7) 0.03 10*3/uL 0.01-0.07 Lab Interpretation (test code = 67875-7) Abnormal [facility] [id number] 18:48:00* Test Item Value Reference Range Interpretation Comme nts POCT PREG (test code = 1605) Positive On board controls acceptable with C Line (test code = 3574) Yes POCT PREG LOT # (test code = 3575) POCT PREG TEST DATE ( test code = 3576) [facility] Urinalysis w/o Specific [id number] 18:48:00* Test Item Value Reference Range Interpretation [...] = 3257) Neg Negative - Negati ve [facility] [id number] 17:40:00* Test Item Value Reference Range Interpretation Comme nts POCT PREG (test code = 1605) Negative On board controls acceptable with C Line (test code = 3574) Yes POCT PREG LOT # (test code = 3575) POCT PREG TEST DATE ( test code = 3576) [facility] [id number] 17:40:00* Test Item Value Reference Range Interpretation Comme nts POCT PREG (test code = 1605) Negative On board controls acceptable with C Line (test code = 3574) Yes POCT PREG LOT # (test code = 3575) POCT PREG TEST DATE ( test code = 3576) [facility]. PYLORI (BREATH)2024-01-10 14:56:22* Test Item Value Reference Range Interpretation Comme nts H. PYLORI (BREATH) (test code = 06441) NEGATIVE NEGATIVE UNLESS OTHER CAMP INDICATED, ALL TESTING PERFORMED AT [facility] [address] [place] [address] BONE CHAR KILN TENDER: BASIA HDEZ M.D. CLIA NUMBER [id number] [facility] [place]. [id number] POCT [id number] 15:37:00* Test Item Value Reference Range Interpretation Comme nts POCT PREG (test code = 1605) Negative On board controls acceptable with C Line (test code = 3574) Yes POCT PREG LOT # (test code = 3575) POCT PREG TEST DATE ( test code = 3576) [facility] [id number] 15:37:00* Test Item Value Reference Range Interpretation Comme nts POCT PREG (test code = 1605) Negative On board controls acceptable with C Line (test code = 3574) Yes POCT PREG LOT # (test code = 3575) POCT PREG TEST DATE ( test code = 3576) [facility] [id number] 19:36:00* Test Item Value Reference Range Interpretation Comme nts POCT PREG (test code = 1605) Negative On board controls acceptable with C Line (test code = 3574) Yes POCT PREG LOT # (test code = 3575) POCT PREG TEST DATE ( test code = 3576) [facility] [id number] 19:36:00* Test Item Value Reference Range Interpretation Comme nts POCT PREG (test code = 1605) Negative On board controls acceptable with C Line (test code = 3574) Yes POCT PREG LOT # (test code = 3575) POCT PREG TEST DATE ( test code = 3576) [facility] [id number] 19:36:00* Test Item Value Reference Range Interpretation Comme nts POCT PREG (test code = 1605) Negative On board controls acceptable with C Line (test code = 3574) Yes POCT PREG LOT # (test code = 3575) POCT PREG TEST DATE ( test code = 3576) [facility] [id number] 19:36:00* Test Item Value Reference Range Interpretation Comme nts POCT PREG (test code = 1605) Negative On board controls acceptable with C Line (test code = 3574) Yes POCT PREG LOT # (test code = 3575) POCT PREG TEST DATE ( test code = 3576) [facility] Consult Notes Date/Time Note Provider Source 2025-08-31 09:52:21 Associated Order(s): CONSULT LOAN EXPEDITOR-ADULT Images from the original note were not included. Comments: positive edinburgh score of 10 CARE MANAGEMENT Care Coordinators/Social Workers/CM Specialists/Utilization Review/Patient Placement & Transfer Center 08/31/2025 9:52 AM SW spoke with patient in regards to consult via kiln feeder [place] J [address]. Pt told SW she remembers completing the assessment but says she currently feels happy. SW encouraged pt to follow up with physician if she starts to feel PPD signs/symptoms once she is home. Pt understood. Pt declined resources. Farnaz Drake LMSW [facility] Municipal Services Manager [phone] [email or web address] Available Fri - Sun aFrnaz Drake LMSW [facility] 2025-08-29 16:32:01 Associated Order(s): CONSULT PS PASTORAL CARE See previous note. The reservations specialist remains available to provide pastoral care as needed. Christie Cat Cardiac Rehab Nurse II [facility] Pastoral Care Department [facility] - Health History and Physical Notes Date/Time Note Provider Source 2025-08-29 11:15:26 TRIAGE/ADMISSION HISTORY & PHYSICAL TRIAGE/ADMISSION DATE: 08/29/2025 11:15 AM OB ATTENDING IN TRIAGE AND/OR ON ADMISSION: BALDEMAR ARRINGTON IDENTIFYING DATA Jackie Rosado is 34 year old, /White, 38w6d, female with PRINCESS. Patient's last menstrual period was 11/30/2024. : 1990 Primary [facility] Care Clinic: [facility] CHIEF COMPLAINT IOL HISTORY OF PRESENT [...] 11.9 / 36.7, 261 on 08/05/25 - [facility] - Contraception: POP Fetus: - Presentation [...] care with the residents. Baldemar Arrington DO [facility] - [facility] Procedure Notes Date/Time Note Provider Source 2025-08-29 18:19:38 Associated Order(s): Central Neuraxial Block Central Neuraxial Block Date/Time: 08/29/2025 6:19 PM Performed by: Viviane Hawthorne MD Authorized by: Gregory Strickland MD Patient Location: OB End Time: 08/29/2025 6:19 PM Reason for Block: OB request, Patient request, Labor analgesia, Surgical anesthesia and Post-op pain management Staff: Anesthesiologist: Gregory Strickland MD Resident/COMMUNITY MUSIC THERAPIST: Viviane Hawthorne MD Performed by: resident/COMMUNITY MUSIC THERAPIST Preanesthetic Checklist: patient identified, IV checked, risks [...] CHIKA saline Guidance with: landmark technique} Epidural/Spinal [place] and/or Catheter: Epidural/Spinal Kit: BBraun Needle Type: [...] PCEA explained and fall precautions given. ANESTHESIOLOGY [facility] Notes Date/Time Note Provider Source 2025-08-31 [...] new skin breakdown Outcome: Progressing as expected [facility] 2025-08-30 17:52:29 Problem: Intrapartum process (including labor [...] Outcome: Progressing as expected Mariama Lewis RN [facility] 2025-08-30 13:58:30 Patient: Jackie Rosado Procedure [...] status: acceptable Hydration status: acceptable AN-ANESTHESIOLOGY ANESTHESIOLOGIST [facility] 2025-08-30 12:07:05 VAGINAL DELIVERY NOTE Delivery Date: 08/30/2025 Delivery Time: 11:26 AM Delivery Summary Pre-delivery diagnosis: The patient was admitted to the Labor & Delivery unit for IOL due to suspected ICP at 38w6d. Post-Delivery Diagnoses: None. Post-Delivery Procedure: s/p [place] Sex: male Beto-jocelin Weight: 3115 g 1 [...] shoulder and body. After the delivery of , bulb suction was performed from oropharynx and nostril with removal of clear amniotic fluid. Delayed cord clamping was performed. Time for delayed cord clamping was 60 seconds. A male was delivered. The umbilical cord was double clamped, cut and the was handed off the field to the [...] MFM Fellow - PGY6 OBSTETRICS & GYNECOLOGY [facility] 2025-08-30 09:29:00 Intrapartum Progress Note 08/30/2025 [...] Intermittent FHR Category: II Uterine Activity: Mode: [place] Contractions (number / 10 minute): 4 Contraction [...] management Amadou Ramon MD OBSTETRICS & GYNECOLOGY [facility] 2025-08-30 07:24:29 Problem: Intrapartum process (including [...] Outcome: Progressing as expected Oralia Murillo RN [facility] 2025-08-30 02:41:30 Intrapartum Progress Note 08/30/2025 2:41 AM Subjective: Patient has no complaints Objective: Vitals last 24 hours: Temp: [36.8 ?C (98.3 ?F)-37 ?C (98.6 ?F)] 36.9 ?C (98.5 ?F) Pulse: [78-106] 89 Resp: [16-19] 16 BP: (91-115)/(52-74) 109/72 Intake/Output : I/O this shift: In: 15.7 [I.V.:15.7] Out: - No intake/output data recorded. Assessment Active movement: Yes Mode: EFM Uterine Activity: Mode: [place] Contractions (number / 10 minute): 3 Contraction [...] management Nanette Walker MD OBSTETRICS & GYNECOLOGY [facility] 2025-08-29 20:04:49 Problem: Intrapartum process (including labor pain) Goal: Absence of or reduction of complications of labor Outcome: Progressing as expected Goal: Able to cope with pain Outcome: Progressing as expected Goal: Adequate to move to next level of care Outcome: Progressing as expected Goal: Reduction in pain sensation Outcome: Progressing as expected Surekha Blanchard RN [facility] 2025-08-29 19:32:17 Intrapartum Progress Note 08/29/2025 7:32 PM Subjective: Patient has no complaints Objective: Vitals last 24 hours: Temp: [36.8 ?C (98.3 ?F)-36.9 ?C (98.5 ?F)] 36.9 ?C (98.5 ?F) Pulse: [81-106] 93 Resp: [16-18] 18 BP: (91-115)/(49-77) 102/59 Intake/Output : No intake/output data recorded. No intake/output data recorded. Assessment Active movement: Yes Mode: EFM Uterine Activity: Mode: [place] Contractions (number / 10 minute): 3 Membrane Status Membrane status: Intact Cervical Exam 5 / 50 % / -3 Assessment/Plan: Jackie Rosado is a 34 year old at 38w6d OB Assessment: IOL, ICP OB Plan: FB@1430, Pit@_ Additional Comments/Detail: FB removed. Attempted AROM however head is quite high. Ripening Agent: Lemons bulb, Oxytocin Intrapartum Plan: Continue active labor management Nanette Walker MD [facility] 2025-08-29 18:16:52 Name/ MRN / Age / Gender: Jackie Rosado, [id number] 34 year old female BMI: Estimated body [...] (physical exam) Anesthesia Preop: Chart Review and [id number] [facility] Communication: 34 year old female at 38w6d [...] Endo/Other ROS Comments: No results found for: "DSSXYTB8A" HGB A1C Date Value Ref Range Status 01/02/2025 5.4 4.0 - 5.7 % Final Other COMPREHENSIVE ADVISOR Comments: 34 year old female at 38w6d [...] 11.9 / 36.7, 261 on 08/05/25 - [facility] - Contraception: POP Fetus: - Presentation [...] to surgery. Hold on DOS. Phentermine: Alert [facility] anesthesiologist SGLT2 Inhibitors: "gliflozins" to be held [...] Epidural Anesthesia plan discussed with: patient or retention representative and psychotherapist counselor Post-Operative Analgesia: routine analgesia & antiemetics Recovery Plan: LDR Additional comments: AN-ANESTHESIOLOGY ANESTHESIOLOGIST [facility] 2025-08-26 10:04:34 Called patient, notified positive for BV. Educated patient on antibiotics, daily probiotics, and BV prevention measures. Pt verbalized understanding. JANETH Alarcon RN 08/26/2025 10:04 AM Janeth Alarcon RN [facility] 2025-08-26 09:06:17 Attempted to call patient, no answer, left vm. [facility] 2025-08-26 08:58:13 Patient labs positive for BV. Medication has been ordered to her pharmacy on file. Please advise her to complete the meds as prescribed, practice good perineal hygiene, limit sexual partners, and practice safe sex. SWAPNA Marlow 08/26/2025 8:58 AM [facility] 2025-08-18 08:30:54 Called pt, pt reports yeast infection symptoms. Reports vaginal itching and irritation. Pt educated on otc monistat. Pt verbalized understanding. Janeth Alarcon RN 08/18/25 8:35 AM Janeth Alarcon RN [facility] 2025-08-18 08:12:10 Jackie Rosado is a 34 year old female Pt calling via kiln feeder stating she finished antibiotics Monday of last week and started having vaginal itching, some watery discharge and urine is dark yellow no matter how much water she drinks. No appt until 08/20 Please call pt at [phone] (home) [facility]/pharmacy #[id number] ONLY, [place] - [address] [place] [address] AT [facility] Valerie Jones [facility] 2025-08-06 02:16:19 Jackie Rosado is a 34 year old female c/o headache, blurred vision and dizziness x 6 days. 35w4d Report called to L&D full stack developer at [phone]. Transported via wheelchair by ERT at this time. AAOX4, GCS 15, no apparent distress, speech clear, steady gait, skin warm and dry, color afe. Accompanied by family. ZAT Carline Armando RN [facility] 2025-08-05 20:42:05 Pt given printed and [...] in no apparent distress, Alka Strickland RN [facility] 2025-08-05 18:27:28 heart tones heard & strong; chair locked; call light within reach; no apparent S&S of distress noticed at this time; plan of care ongoing [facility] 2025-08-05 16:28:32 CC: patient presents to the ER for complaints of vomiting and dizziness that began 6-7 days ago. Patient also states she is having upper back and neck pain. 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 Patient states she is 35 weeks gestation. Patient is lao speaking only. Awake, alert, oriented, resp reg unlabored, skin warm and dry, color appropriate for race, moves all ext without difficulty, amb without assistance. Appears in no distress. Myah Coulter RN [facility] 2025-08-05 16:23:01 Called for triage, patient in restroom. [facility] 2025-08-05 14:20:03 Called pt, pt reports having headache, dizziness, vomiting x 5 days. Reports intermittent contractions. Denies swelling, DFM, LOF, and or vaginal bleeding. Pt unable to check BP at home. Pt advised will need to be evaluated by L&D. Strict er warnings given. Pt verbalized understanding. Janeth Alarcon RN 08/05/25 2:37 PM Janeth Alarcon RN [facility] 2025-08-05 13:27:40 Copied from [facility] #[id number]. Topic: Clinical - Medical Advice >> Aug 05, 2025 1:25 PM Patient Wound Care Specialist wrote: Jackie Rosado is a 34 year old female 35 weeks 3 days lao speaking ob patient, states she has been having frequently vomit, headache and dizziness x 5 days. Please call [phone] (home) Shelley Felton [facility] 2025-07-11 11:00:23 Her symptoms are related to anxiety. I increased the dosage of hydroxyzine and she should take it 4 times as needed. She needs to take when starts to feel sx not wait until they become uncontrollable. Please give her mental health resources and encourage her to contact [facility] since we are limited in treatment options. Nurse called and spoke to patient. Nurse did give pt all the information for [facility] since she lives in [facility]. Nurse also did give pt the information for the [facility] website. Pt verbalized understanding and has no further questions at this time. Pt states that she is going to try to take the medication as instructed, and if this does not, she will go and get help from psychologist. Néstor Stone LVN [facility] 2025-07-11 08:19:42 Called pt, no answer. Left vm. Janeth Alarcon RN 07/11/25 8:19 AM Janeth Alarcon RN [facility] 2025-07-11 06:41:01 Her symptoms are related to anxiety. I increased the dosage of hydroxyzine and she should take it 4 times as needed. She needs to take when starts to feel sx not wait until they become uncontrollable. Please give her mental health resources and encourage her to contact [facility] since we are limited in treatment options. [facility] 2025-07-10 13:20:15 Pt states that she [...] provider to see what is the recommendation. [facility] 2025-07-10 11:26:50 Copied from CRM #[id number]. Topic: Clinical - Medical Advice >> Jul 10, 2025 11:25 AM Patient Wound Care Specialist wrote: Jackie Rosado Clinic Name: [facility] [id number] female / 34 year old (1990) Patient Specific Symptoms: headache, feels hot, medication not helping Patient durations of symptoms: x2days Language : MALAY Number of weeks : 31wks 5days Maame Nugent [facility] 2025-06-26 11:27:46 Pt called, states after receiving tdap vaccine having [place], ringing in ears, and sensitive to sounds. Pt denies blurry vision or swelling. Pt denies DFM, contractions, or LOF. Pt given strict er warnings. Advised to take tylenol and scheduled for same day [place]. Verbalized understanding. Janeth Alarcon RN 06/26/25 11:33 AM Janeth Alarcon RN [facility] 2025-06-26 11:23:22 Copied from [facility] #[id number]. Topic: Clinical - Medical Advice >> Jun 26, 2025 11:22 AM Patient Wound Care Specialist wrote: Pt is requesting call back, states she has been having side effects from vaccines, please call [phone] (home) IGOR Medina [facility] 2025-05-20 15:44:46 Patient educated and providers recommendations. Janeth Alarcon RN 05/20/25 3:47 PM Janeth Alarcon RN [facility] 2025-05-20 15:32:10 I agree with information provided. Most likely due to anemia and decreased food intake. Increase protein in diet and eat small frequent meals. She should take iron supplement prior to bed with no milk. [facility] 2025-05-20 14:54:58 Called pt, pt reports [...] recommendations. Janeth Alarcon RN 05/20/25 2:56 PM [facility] 2025-05-20 14:19:02 Copied from [facility] #[id number]. Topic: Clinical - Medical Advice >> May 20, 2025 2:13 PM Patient Wound Care Specialist wrote: Jackie Calzadaa Clinic Name: [facility] [id number] female / 34 year old (1990) Patient Specific Symptoms: dizzy when stands up and head pressure since taking iron medication Patient durations of symptoms: x 1 week Language (Remove if czech speaking): lao Number of weeks (remove if it does not apply): 24 weeks Claudia Anaya [facility] 2025-05-12 16:04:30 Pt reports never taken iron prior. Advised to D/C meds and notified of providers recommendations. Verbalized understanding. Janeth Alarcon RN 05/12/25 4:06 PM Janeth Alarcon RN [facility] 2025-05-12 15:56:58 Has she taken iron supplement in past? She can try OTC iron supplement, not one with red dye. She will need to increase iron rich foods. [facility] 2025-05-12 14:42:49 Called pt, pt reports taking Integra plus x 3 days. Reports burning rash on face after taking medication. Denies any other s/s. Pt with hx dermatitis, pt denies having flare up. Advised to discontinue integra plus and will route to provider for POC. Pt to continue taking pnv as prescribed. Verbalized understanding. Janeth Alarcon RN 05/12/25 2:43 PM [facility] 2025-05-12 14:13:52 Jackie Rosado is a 34 year old female Pt is having a rash on face from meds Iron Fum & P-FA-Vit B & C No.9 (INTEGRA PLUS) 125 mg iron- 1 mg Cap Nathan Keller [facility] 2025-05-08 01:59:11 Pt cleared by ED provider Report called to Basia PATTERSON in L&D Pt being transferred to L&D for decreased movement Pt taken to L&D via wheelchair [facility] 2025-05-08 00:47:10 22w5d RMCHP pt C/o SOB, chest pressure, and dizzy x 1 day, began this afternoon but has gotten worse throughout the evening Denies any related complaints Marcelina Santiago RN [facility] 2025-05-08 00:46:00 [facility] Emergency Department Note Patient Name: Jackie Rosado Date of : 1990 34 year old female Treatment Room: [place] [address] Primary Care Physician: Katlin Ward Patient Escorted by: Family [5] Mode of Arrival: Personal means [1] EMS Treatment Prior to ED 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 METABOLIC PANEL (84760) - Abnormal NA 137 135 - 145 [...] Procedures Cbc with Diff Comp. Metabolic Panel (03382) Lipase Troponin I Orders Placed This Encounter Medications maalox/diphenhydrAMINE:lid ocaine2 %viscous 1:1:1: suspension (COMPOUNDED) First Provider Eval: ED Events Date/Time Event User Comments 05/08/2555 Medical Screening Begins ROSE PRINGLE MD -- 05/08/2555 First Provider Evaluation ROSE PRINGLE MD -- ED COURSE ED Course as of 05/08/25204 [facility] May 08, 2025 0154 1:54 AM [...] Electronically signed by: Rose Pringle MD 05/08/25204 [facility] 2025-04-09 14:50:06 Nurse called and informed pt to take medication as prescribed since she was positive for BV. Pt verbalized understanding and has no further questions at this time. "Pt labs positive for BV, treatment sent to pharmacy on file SWAPNA Marlow 04/09/2025 1:47 PM" Néstor Stone LVN [facility] 2025-04-09 14:35:08 Jackie Rosado is a 34 year old female Pt calling via kiln feeder about lab results. Please call pt at [phone] (home) Valerie Jones [facility] 2025-04-09 12:48:35 Pt labs positive for BV, treatment sent to pharmacy on file SWAPNA Marlow 04/09/2025 1:47 PM [facility] 2025-03-14 12:53:12 Called pt, discussed results and poc. Verbalized understanding. Janeth Alarcon RN 03/14/25 12:53 PM Janeth Alarcon RN [facility] 2025-03-14 10:53:27 Please call patient and let her know urine and vaginal cultures are negative for infection. The discomfort she is having could be caused by growing uterus. [facility] 2025-03-12 08:26:25 Called pt, pt having dysuria and lower pelvic pain x 7 days. Reports little amount of urine when going to void. Reports foul smelling urine. Denies any vaginal discharge. Provider notified and advised to scheduled for same day appt. Janeth Alarcon RN 03/12/25 8:33 AM Janeth Alarcon RN [facility] 2025-03-12 08:12:04 Jackie Rosado is a 34 year old female is requesting a callback. Patient says that she is having burning when urinating and a lot of pressure causing problems with walking. PAS offered appt but patient would like callback first. Thank you. Jess Santana [facility] 2025-01-23 13:41:55 Triage Assessment Last Clinic [...] ER warning signs provided. O Larson RN [facility] 2025-01-23 13:17:41 Jackie Rosado is a 34 year old female 7wks preg Pt is exp pink/red discharge O Palacios [facility] 2025-01-21 16:02:24 Pt discharged with diagnosis [...] in no apparent distress. No ataxia noted. NESS TECHNOLOGY PROFESSOR Heide Villalpando RN [facility] 2025-01-21 14:54:31 Report given to Mario Villalpando RN. O Salinas RN [facility] 2025-01-21 13:32:34 Pt arrived ambulatory for vaginal bleeding that began today. A1, cough and sore throat since Monday. Took promethazine today but vomited, states she saw a rat today in her apartment and it scared her, 10 minutes later her stomach started hurting, vomited and had vaginal bleeding. Hx none O Magdaleno RN [facility] 2025-01-21 09:47:49 Patient stated she had [...] and follow up if necessary, verbalized understanding. [facility] 2025-01-21 09:23:28 Patient calling to speak to nurse. Patient c/o spotting since 2 hours ago. No other symptom please call back NESS TECHNOLOGY PROFESSOR Claudia Anaya [facility] 2025-01-21 08:44:50 Pt stated she is having constipation, referred to safe medication list. Pt stated she has been vomiting about 3-4 times a day. Stated the promethazine has been giving her relief at times but not fully. Referred to safe medication list, informed to return call if symptoms worsen, verbalized understanding. [facility] 2025-01-21 08:35:14 Jackie Rosado is a 34 year old female Yakut speaking 7 weeks 3 days ob patient states she has been having constipation for 1 weeks having a bowel movement every 3 days and has been having green vomit that look like bile, cough and fever. Please call [phone] (home) O Felton [facility] 2025-01-16 16:52:25 Notified patient prescription for nausea has been sent to pharmacy on file. Pt asking if can take OTC and or extra folic acid. Informed patient that she can buy any over the counter vitamin and she does not need extra folic acid. Pt verbalized understanding. CICI MARQUEZ RN 01/16/2025 4:56 PM [facility] 2025-01-16 16:23:33 Promethazine erx sent [facility] 2025-01-16 14:40:14 Jackie Rosado is a 34 year old female Yakut speaking patient requesting prescription for nausea and vomit to be sent to pharmacy, please call [phone] (home) [facility]/pharmacy #[id number] [place] [address] - [address] [place] [address] AT [facility] NESS TECHNOLOGY PROFESSOR Shelley Felton [facility] 2025-01-06 13:51:00 Pt given printed and [...] apparent distress, accompanied by her significant others. [facility] 2025-01-06 11:12:00 Patient came in with complaints of RLQ abdominal pain since 3 days. States she's also constipated. States she's . LMP - 11/30/2024, M1 Floor Space Allocator Name/ID: Igor / [id number] O Huber RN [facility] 2025-01-06 11:11:00 [facility] Emergency Department Note Patient Name: Jackie Rosado Date of : 1990 34 year old female Treatment Room: [facility] ED DARNELL JONES/KARAN Primary Care [...] period was November 30. She has seen COMPREHENSIVE ADVISOR with this but has not had an [...] M-mode was used to evaluate the heart. Gaming Manager images were obtained. COMPARISON: None FINDINGS: Uterus: [...] DO -- 01/06/25 1116 First Provider Evaluation SARAY BAEZ DO -- ED COURSE Diagnosis/Impression as [...] period was November 30. She has seen COMPREHENSIVE ADVISOR with this but has not had an [...] She will need to follow-up with her COMPREHENSIVE ADVISOR in 1 week. She remained stable here [...] signed by: Saray Baez DO 01/06/25 1342 [facility] 2025-01-06 08:21:57 Called pt, pt reports right sided pelvic pain x 2 days, 6/10 pain, denies radiation. Reports took tylenol on 01/05/2025 with relief. Reports body aches and chills on left leg only. Denies fever. Denies vaginal bleeding. Advised labs WNL. Provider notified. Pt to follow up with ER for ectopic rule out. Janeth Alarcon RN 01/06/25 8:22 AM NESS TECHNOLOGY PROFESSOR Janeth Alarcon RN [facility] 2025-01-06 08:11:54 Jackie Rosado is a 34 year old female Pt calling via kiln feeder states she has pelvic pain on right side and left leg has chills and some discharge since this weekend. Please call pt at [phone] (home) NESS TECHNOLOGY PROFESSOR Valerie Jones [facility] 2024-03-04 16:37:05 Copied from [facility] #[id number]. Topic: Clinical - Medical Advice >> Mar 04, 2024 4:33 PM Patient Wound Care Specialist wrote: Jackie Rosado is a 33 year old female Patient is calling stating that patient went to the [facility] on 02/28 and the pharmacy had not received RX pimecrolimus 1 % cream just yet. Informed patient of note placed on 03/04. Transferred pt and interpretor to Marilu Rajan Ruthie York [facility] 2024-03-04 16:01:24 Spoke to [facility] and they state they do not have the Pimecrolimus 1% cream rx. Spoke to pharmacist and gave a verbal order over the phone for this patient. Patient called clinic with psychotherapist counselor on the line and wanted to know [...] concerns at this time. Mohini Mejia LVN [facility] 2024-02-29 15:24:21 Jackie Rosado is a 33 year old female Patient is calling and states her prescription for pimecrolimus 1 % cream was not received by the pharmacy. I called the pharmacy to confirm they never received it they do not have it, please resend prescription. Rosalind Holloway [facility] 2024-02-28 12:23:19 Nurse called and spoke to PT and advised her of Dr. Abebe's note for medication change. Oksana Marie LVN 02/28/2024 12:23 PM Oksana Marie [facility] 2024-02-28 11:43:46 Sent patient Elimyra instead of Protopic. [facility] 2024-02-26 11:00:52 Copied from [facility] #[id number]. Topic: Clinical - Medical Advice >> Feb 26, 2024 10:59 AM Patient Wound Care Specialist wrote: Jackie Rosado is a 33 year old female. Patient is calling stating she was prescribed RX tacrolimus 0.1 % ointment on 02/15. She states the RX irritates her and wants to know if she needs to be seen. [phone] (home) Please advise. Ruthie York [facility] 2024-02-16 10:45:00 Addended by: GUILLERMINA ABEBE MD on: 02/28/2024 11:43 AM Modules accepted: Orders [facility]
[2025-09-12 05:31] LABS: Absolute Lymphocytes (CBC) 1.4 K/uL (0.7-4.9); Hematocrit 37.8 % (36.0-45.0); Hemoglobin 12.8 g/dL (12.0-15.0); MCH 28.0 pg (27.0-35.0); MCHC 33.9 g/dL (32.0-36.0); MCV 82.4 fL (80-100); MPV 7.4 fL (7.6-11.3); Nucleated RBC Absolute Count 0.0 (0-0); Nucleated Red Blood Cells % 0.1 % (0-0); RBC Red Blood Cell Count 4.59 M/uL (3.86-4.86); White Blood Count 4.00 thou/uL (4.3-10.9)
[2025-09-12 05:44] LABS: ALT/SGPT 60.0 U/L (13-56); AST/SGOT 16.0 U/L (15-37); Albumin 3.1 g/dL (3.4-5.0); Albumin/Globulin Ratio 0.8 (1.1-1.8); Alkaline Phosphatase 108.0 U/L (45-117); Anion Gap 6.4 mEq/L (5.0-15.0); BUN Blood Urea Nitrogen 9.0 mg/dL (7-18); Globulin 4.1 g/dL (2.3-3.5); Glucose Level 85.0 mg/dL (74-106); Lipase 23.0 U/L (13-75); Potassium 3.4 mEq/L (3.5-5.1)
[2025-09-12] MEDS ORDERED: ACETAMINOPHEN 500 MG TAB ONE (06:54)
[2025-09-12] MEDS ORDERED: KETOROLAC 30 MG/ML INJ ONE (06:54)
[2025-09-12] MEDS ORDERED: MORPHINE 4 MG/ML SYR ONE (06:54)
[2025-09-12] MEDS ORDERED: ONDANSETRON 4 MG/2 ML VIAL ONE ×2 (06:54→12:39)
--- NOTE | 2025-09-12 07:46 | EDPHYS ---
Physician Documentation [facility] Name: Jackie Marquez Age: 34 yrs Sex: Female : 1990 Arrival Date: 09/12/2025 Time: 04:18 Bed 14 Private MD: ED Physician Baldemar Mcnamara HPI: 09/12 07:29 This 34 yrs old Female presents to ER via Ambulatory with complaints of Flank jermaine Pain, Abdominal Pain. 07:29 The patient complains of pain in the right mid back and right low back. The pain jermaine radiates to the right mid back. Onset: The symptoms/episode began/occurred 3 day(s) ago. Modifying factors: The symptoms are alleviated by nothing. Associated signs and symptoms: The patient has no apparent associated signs or symptoms. Severity of pain: At its worst the pain was moderate in the emergency department the pain is unchanged. The patient has not experienced similar symptoms in the past. Historical: - Allergies: 05:04 No Known Allergies; tb4 - PMHx: 05:04 None; tb4 - PSHx: 05:04 None; tb4 - Immunization history:: Adult Immunizations up to date. - Infectious Disease History:: Denies. - Social history:: Smoking status: Patient denies any tobacco usage or history of. Patient/guardian denies using alcohol, street drugs, IV drugs, tobacco products. - Family history:: not pertinent. ROS: 07:29 Constitutional: Negative for fever, chills, and weight loss, Eyes: Negative for injury, jermaine pain, redness, and discharge, ENT: Negative for injury, pain, and discharge, Neck: Negative for injury, pain, and swelling, Cardiovascular: Negative for chest pain, palpitations, and edema, Respiratory: Negative for shortness of breath, cough, wheezing, and pleuritic chest pain, Back: Negative for injury and pain, : Negative for injury, bleeding, discharge, and swelling, MS/Extremity: Negative for injury and deformity, Skin: Negative for injury, rash, and discoloration, Neuro: Negative for headache, weakness, numbness, tingling, and seizure, Psych: Negative for depression, anxiety, suicide ideation, homicidal ideation, and hallucinations, Allergy/Immunology: Negative for hives, rash, and allergies, Endocrine: Negative for neck swelling, polydipsia, polyuria, polyphagia, and marked weight changes, Hematologic/Lymphatic: Negative for swollen nodes, abnormal bleeding, and unusual bruising, 07:29 Abdomen/GI: Positive for abdominal pain, of the epigastric area and right upper quadrant, Exam: 07:29 Constitutional: This is a well developed, well nourished patient who is awake, alert, jermaine and in no acute distress. Head/Face: Normocephalic, atraumatic. Eyes: Pupils equal round and reactive to light, extra-ocular motions intact. Lids and lashes normal. Conjunctiva and sclera are non-icteric and not injected. Cornea within normal limits. Periorbital areas with no swelling, redness, or edema. ENT: Nares patent. No nasal discharge, no septal abnormalities noted. Tympanic membranes are normal and external auditory canals are clear. Oropharynx with no redness, swelling, or masses, exudates, or evidence of obstruction, uvula midline. Mucous membranes moist. Neck: Trachea midline, no thyromegaly or masses palpated, and no cervical lymphadenopathy. Supple, full range of motion without nuchal rigidity, or vertebral point tenderness. No Meningismus. Chest/axilla: Normal chest wall appearance and motion. Nontender with no deformity. No lesions are appreciated. Cardiovascular: Regular rate and rhythm with a normal S1 and S2. No gallops, murmurs, or rubs. Normal PMI, no JVD. No pulse deficits. Respiratory: Lungs have equal breath sounds bilaterally, clear to auscultation and percussion. No rales, rhonchi or wheezes noted. No increased work of breathing, no retractions or nasal flaring. Back: No spinal tenderness. No costovertebral tenderness. Full range of motion. Skin: Warm, dry with normal turgor. Normal color with no rashes, no lesions, and no evidence of cellulitis. MS/ Extremity: Pulses equal, no cyanosis. Neurovascular intact. Full, normal range of motion., bilateral aka Neuro: Awake and alert, GCS 15, oriented to person, place, time, and situation. Cranial nerves II-XII grossly intact. Motor strength 5/5 in all extremities. Sensory grossly intact. Cerebellar exam normal. Normal gait. Psych: Awake, alert, with orientation to person, place and time. Behavior, mood, and affect are within normal limits. 07:29 Abdomen/GI: Inspection: abdomen appears normal, Bowel sounds: normal, Palpation: moderate abdominal tenderness, in the epigastric area and right upper quadrant, Liver: no appreciated palpable abnormalities, Hernia: not appreciated, Vital Signs: 04:55 BP 136 / 76; Pulse 71; Resp 20; Temp 97.7(O); Pulse Ox 98% on R/A; Weight 73.03 kg (R); tb4 Height 5 ft. 3 in. ; Pain 6/10; 05:10 BP 113 / 82; Pulse 66; Resp 17; Pulse Ox 97% on R/A; Pain 6/10; tb4 06:11 BP 115 / 70; Pulse 52; Resp 16; Pulse Ox 99% on R/A; tb4 07:00 BP 120 / 92; Pulse 50; Resp 17; Pulse Ox 96% on R/A; cm10 08:00 BP 121 / 71; Pulse 47; Resp 16; Pulse Ox 94% on R/A; cm10 08:09 Pain 3/10; cm10 08:09 Pain 3/10; cm10 08:09 Pain 3/10; cm10 09:00 BP 137 / 91; Pulse 48; Resp 16; Pulse Ox 97% on R/A; cm10 04:55 Body Mass Index 28.52 (73.03 kg, 160.02 cm) tb4 04:55 Pain Scale: Adult tb4 05:10 Pain Scale: Adult tb4 08:09 Pain Scale: Adult cm10 08:09 Pain Scale: Adult cm10 08:09 Pain Scale: Adult cm10 MDM: 04:48 Medical Screening Exam initiated tt7 07:31 Differential diagnosis: nephrolithiasis, pyelonephritis, UTI, diverticulitis, jermaine pancreatitis. Data reviewed: vital signs, nurses notes, lab test result(s), radiologic studies, CT scan, ultrasound. Consideration of Admission/Observation Patient was admitted/placed on observation. Escalation of care including admission/observation considered. I considered the following discharge prescriptions or medication management in the emergency department Medications were administered in the Emergency Department. See MAR. Independent interpretation of the following test(s) in the Emergency Department Radiology Department Ultrasound: My interpretation is gb. Historians other than the Patient: Spouse/Significant Other: well informed. 09/12 04:58 Order name: CBC with Diff; Complete Time: 06:27 tt7 09/12 04:58 Order name: CMP; Complete Time: 06:27 tt7 09/12 04:58 Order name: Lipase; Complete Time: 06:27 tt7 09/12 04:58 Order name: Test, Serum; Complete Time: 06:27 tt7 09/12 08:35 Order name: UA Rfx Scott Cult if indicated EDMS 09/12 08:36 Order name: Potassium EDMS 09/12 08:37 Order name: Acute Hepatitis Panel EDMS 09/12 09:09 Order name: T4 Free EDMS 09/12 09:09 Order name: Thyroid Stimulating Hormone EDMS 09/12 09:09 Order name: CBC with Automated Diff EDMS 09/12 09:09 Order name: CBC with Automated Diff EDMS 09/12 09:09 Order name: Comprehensive Metabolic Panel EDMS 09/12 09:09 Order name: Comprehensive Metabolic Panel EDMS 09/12 09:09 Order name: Magnesium EDMS 09/12 09:09 Order name: Magnesium EDMS 09/12 09:09 Order name: Phosphorus EDMS 09/12 09:09 Order name: Phosphorus EDMS 09/12 09:09 Order name: Abdomen Exam Complete EDMS 09/12 09:09 Order name: Renal Ultrasound-Limited EDMS 09/12 04:58 Order name: IV Saline Lock; Complete Time: 05:11 tt7 09/12 04:58 Order name: Labs collected and sent; Complete Time: 05:11 tt7 Administered Medications: 07:13 Drug: Ondansetron IVP 4 mg IVP once; over 2 minutes Route: IVP; Site: right wrist; tb4 08:09 Follow up: Response: No adverse reaction cm10 07:14 Drug: Ketorolac IVP 15 mg IVP once Route: IVP; Site: right wrist; tb4 08:09 Follow up: Pain 3/10 Adult; Response: No adverse reaction; Pain is decreased cm10 07:14 Drug: Acetaminophen PO 1000 mg PO once Route: PO; tb4 08:09 Follow up: Pain 3/10 Adult; Response: No adverse reaction; Pain is decreased cm10 07:14 Drug: morphine IVP or IV 2 mg IVP once over 4 mins Route: IVP; Infused Over: 4 mins; tb4 Site: right wrist; 08:09 Follow up: Pain 3/10 Adult; Response: No adverse reaction; Pain is decreased cm10 08:08 Drug: Piperacillin-Tazobactam IVPB 3.375 grams IVPB once over 60 mins; (mix in NS 100 cm10 mL) Route: IVPB; Infused Over: 60 mins; Site: right wrist; 09:27 Follow up: Response: No adverse reaction; IV Status: Completed infusion; IV Intake: cm10 100ml Disposition Summary: 09/12/25 07:45 Hospitalization Ordered Notes: Hospitalization Status: Observation jermaine Provider: Karri Santiago cha Location: Telemetry/MedSurg (observation) jermaine Condition: Stable jermaine Problem: new jermaine Symptoms: have improved jermaine Bed/Room Type: Standard [facility] Room Assignment: jermaine Diagnosis - Acute cholecystitis jermaine - Other cholelithiasis with obstruction jermaine Forms: - Medication Reconciliation Form jermaine - SBAR form jermaine - Leadership Thank You Letter jermaine Signatures: Dispatcher [employer] EDMS Baldemar Mcnamara MD MD cha Martinez, Clarissa RN YESENIA cm10 Jeannie Herr RN RN tb4 Gaston Gamble DO DO tt7 Corrections: (The following items were deleted from the chart) 04:58 04:58 CBC+H.LAB.BRZ ordered. EDMS EDMS 04:58 04:58 COMPREHENSIVE METABOLIC PANEL+C.LAB.BRZ ordered. EDMS EDMS 04:58 04:58 LIPASE+C.LAB.BRZ ordered. EDMS EDMS 04:58 04:58 TEST, SERUM+SC.LAB.BRZ ordered. EDMS EDMS
--- NOTE | 2025-09-12 07:46 | ER ---
Nurse's Notes [facility] Name: Jackie Marquez Age: 34 yrs Sex: Female : 1990 Arrival Date: 09/12/2025 Time: 04:18 Bed 14 Private MD: Diagnosis: Acute cholecystitis;Other cholelithiasis with obstruction Presentation: 09/12 04:55 Chief complaint: Patient states: She has pain to her upper right quadrant for two days tb4 with nausea. Coronavirus screen: At this time, the client does not indicate any symptoms associated with coronavirus-19. Ebola Screen: No symptoms or risks identified at this time. Initial Sepsis Screen: Does the patient meet any 2 criteria? No. Patient's initial sepsis screen is negative. Does the patient have a suspected source of infection? No. Patient's initial sepsis screen is negative. Risk Assessment: Do you want to hurt yourself or someone else? Patient reports no desire to harm self or others. Onset of symptoms is unknown. 04:55 Method Of Arrival: Ambulatory tb4 04:55 Acuity: TONI 3 tb4 Triage Assessment: 05:04 General: Appears uncomfortable, Behavior is calm, cooperative. Pain: Complains of pain tb4 in epigastric area and right upper quadrant Pain radiates to right lower quadrant Pain currently is 6 out of 10 on a pain scale. Quality of pain is described as sharp, shooting, Pain began gradually. EENT: No signs and/or symptoms were reported regarding the EENT system. Neuro: Level of Consciousness is awake, alert, obeys commands, Oriented to person, place, time, situation, Moves all extremities. Full function Gait is steady, Speech is normal, Facial symmetry appears normal. Cardiovascular: Patient's skin is warm and dry. Respiratory: Airway is patent Respiratory effort is even, unlabored, Respiratory pattern is regular, symmetrical. GI: Abdomen is flat, non-distended, Bowel sounds present X 4 quads. : No signs and/or symptoms were reported regarding the genitourinary system. Derm: No signs and/or symptoms reported regarding the dermatologic system. Skin is healthy with good turgor, Skin is dry, Skin is normal, Skin temperature is warm. Musculoskeletal: No signs and/or symptoms reported regarding the musculoskeletal system. Historical: - Allergies: 05:04 No Known Allergies; tb4 - PMHx: 05:04 None; tb4 - PSHx: 05:04 None; tb4 - Immunization history:: Adult Immunizations up to date. - Infectious Disease History:: Denies. - Social history:: Smoking status: Patient denies any tobacco usage or history of. Patient/guardian denies using alcohol, street drugs, IV drugs, tobacco products. - Family history:: not pertinent. Screenin:10 [facility] ED Fall Risk Assessment (Adult) History of falling in the last 3 months, tb4 including since admission No falls in past 3 months (0 pts) Confusion or Disorientation No (0 pts) Intoxicated or Sedated No (0 pts) Impaired Gait No (0 pts) Mobility Assist Device Used No (0 pt) Altered Elimination No (0 pt) Score/Fall Risk Level 0 - 2 = Low Risk Maintained a safe environment. Abuse screen: Denies threats or abuse. Denies injuries from another. Nutritional screening: No deficits noted. Tuberculosis screening: No symptoms or risk factors identified. Assessment: 07:30 General: Appears uncomfortable, Behavior is calm, cooperative. cm10 07:30 Pain: Complains of pain in right upper quadrant Pain radiates to back Pain currently is cm10 8 out of 10 on a pain scale. Neuro: No deficits noted. Level of Consciousness is awake, alert, obeys commands, Oriented to person, place, time, situation, Appropriate for age. Respiratory: No deficits noted. Airway is patent Respiratory effort is even, unlabored, Respiratory pattern is regular, symmetrical. GI: Abdomen is tender to palpation in right upper quadrant. 08:30 Reassessment: Patient appears in no apparent distress at this time. Patient and/or cm10 family updated on plan of care and expected duration. Pain level reassessed. Patient is alert, oriented x 3, equal unlabored respirations, skin warm/dry/pink. Vital Signs: 04:55 BP 136 / 76; Pulse 71; Resp 20; Temp 97.7(O); Pulse Ox 98% on R/A; Weight 73.03 kg (R); tb4 Height 5 ft. 3 in. ; Pain 6/10; 05:10 BP 113 / 82; Pulse 66; Resp 17; Pulse Ox 97% on R/A; Pain 6/10; tb4 06:11 BP 115 / 70; Pulse 52; Resp 16; Pulse Ox 99% on R/A; tb4 07:00 BP 120 / 92; Pulse 50; Resp 17; Pulse Ox 96% on R/A; cm10 08:00 BP 121 / 71; Pulse 47; Resp 16; Pulse Ox 94% on R/A; cm10 08:09 Pain 3/10; cm10 08:09 Pain 3/10; cm10 08:09 Pain 3/10; cm10 09:00 BP 137 / 91; Pulse 48; Resp 16; Pulse Ox 97% on R/A; cm10 04:55 Body Mass Index 28.52 (73.03 kg, 160.02 cm) tb4 04:55 Pain Scale: Adult tb4 05:10 Pain Scale: Adult tb4 08:09 Pain Scale: Adult cm10 08:09 Pain Scale: Adult cm10 08:09 Pain Scale: Adult cm10 ED Course: 04:26 Patient arrived in ED. gm2 04:48 Gaston Gamble DO is Attending Physician. tt7 05:04 Triage completed. tb4 05:04 Arm band placed on right wrist. tb4 05:10 Patient has correct armband on for positive identification. Bed in low position. Call tb4 light in reach. Adult w/ patient. Client placed on continuous cardiac and pulse oximetry monitoring. NIBP monitoring applied. Pulse ox on. Door closed. Warm blanket given. 05:10 No provider procedures requiring assistance completed. Initial lab(s) drawn, by ED tb4 staff, sent to lab. 05:11 Test, Serum Sent. tb4 05:18 Inserted saline lock: 20 gauge in right wrist, using aseptic technique. Blood tb4 collected. Flushed with 10 mL NS. 07:11 Attending Physician role handed off by Gaston Gamble DO jermaine 07:11 Baldemar Mcnamara MD is Attending Physician. jermaine 07:44 Karri Santiago is Hospitalizing Provider. jermaine 09:28 Provided Education on: Need for admit. Report given to YESENIA Frank with day surgery. cm10 09:28 Patient admitted, IV remains in place. cm10 Administered Medications: 07:13 Drug: Ondansetron IVP 4 mg IVP once; over 2 minutes Route: IVP; Site: right wrist; tb4 08:09 Follow up: Response: No adverse reaction cm10 07:14 Drug: Ketorolac IVP 15 mg IVP once Route: IVP; Site: right wrist; tb4 08:09 Follow up: Pain 3/10 Adult; Response: No adverse reaction; Pain is decreased cm10 07:14 Drug: Acetaminophen PO 1000 mg PO once Route: PO; tb4 08:09 Follow up: Pain 3/10 Adult; Response: No adverse reaction; Pain is decreased cm10 07:14 Drug: morphine IVP or IV 2 mg IVP once over 4 mins Route: IVP; Infused Over: 4 mins; tb4 Site: right wrist; 08:09 Follow up: Pain 3/10 Adult; Response: No adverse reaction; Pain is decreased cm10 08:08 Drug: Piperacillin-Tazobactam IVPB 3.375 grams IVPB once over 60 mins; (mix in NS 100 cm10 mL) Route: IVPB; Infused Over: 60 mins; Site: right wrist; 09:27 Follow up: Response: No adverse reaction; IV Status: Completed infusion; IV Intake: cm10 100ml Medication: 05:10 VIS not applicable for this client. tb4 Intake: 09:27 IV: 100ml; Total: 100ml. cm10 Outcome: 07:45 Decision to Hospitalize by Provider. jermaine 09:27 Admitted to OR accompanied by nurse, via wheelchair, 10 09:27 Condition: stable 09:27 Instructed on the need for admit, 09:29 Patient left the ED. cm10 Signatures: Baldemar Mcnamara MD MD cha Martinez, Clarissa RN RN cm10 Rae Choi 2 Jeannie Herr RN RN tb4 Gaston Gamble, DO GONZALEZ tt7
[2025-09-12] MEDS ORDERED: PIPERACIL/TAZO 3.375 GM VIAL IV ONE (07:52)
[2025-09-12] MEDS ORDERED: NA CHLORIDE 0.9% 100 ML ONE (07:52)
[2025-09-12] MEDS: POTASSIUM 25 MEQ EFFERV TAB PO ONE ×2 (08:33→16:08)
[2025-09-12] MEDS: NA CHLORIDE 0.9% 1,000 ML IV SCH (09:00)
[2025-09-12] MEDS: PANTOPRAZOLE 40 MG INJ IVP ONE (09:00)
[2025-09-12] MEDS ORDERED: ACETAMINOPHEN 325 MG TABLET PO PRN (09:00)
[2025-09-12] MEDS: ENOXAPARIN 40 MG/0.4 ML SQ SCH (09:00)
[2025-09-12] MEDS ORDERED: SODIUM CHLORIDE 0.9% 10ML INJ IV PRN (09:00)
--- NOTE | 2025-09-12 09:17 | P.HP ---
Certification for Inpatient Patient admitted to: Observation With expected LOS: <2 Midnights Patient will require the following post-hospital care: None Practitioner: I am a practitioner with admitting privileges, knowledge of patient current condition, hospital course, and medical plan of care. Services: Services provided to patient in accordance with Admission requirements found in Title 42 Section 412.3 of the Code of Federal Regulations Patient History Date of Service: 09/12/25 Reason for admission: Back pain,abdominal pain History of Present Illness: Jackie Marquez is a 34-year-old female with recent imaging demonstrating hepatic steatosis and an current who presents to the emergency department with a 3-day history of right-sided flank and abdominal pain. The back pain originates in the right lower back and radiates to the right midback region. She also reports concurrent epigastric and right upper quadrant abdominal pain, accompanied by chills. The pain has been persistent since onset 3 days ago and has not been alleviated by any measures attempted. The patient sought emergency care due to the persistent nature and severity of her symptoms. In ED patient given Zofran 4 mg IV, acetaminophen 1 g p.o., morphine 2 mg IV, Toradol 15 mg x 1 and Zosyn 3.375 g x 1 with good relief of symptoms. Vital signs stable room air. Mild hypokalemia potassium 3.4, LFTs AST 16, ALT 60, albumin 3.1, test positive, lipase 23. Allergies No Known Allergies Allergy (Unverified 09/12/25 08:31) Home medications list reviewed: Yes Home Medications: NK [No Home Meds] 09/12/25 - Past Medical/Surgical History Has patient received pneumonia vaccine in the past: No Diabetic: No -: Hepatic steatosis Past Surgical History: Patient denies surgical history - Family History Family History: Reviewed- Non-Contributory - Social History Smoking Status: Never smoker Alcohol use: No CD- Drugs: No Caffeine use: Yes Place of Residence: Home Review of Systems 10-point ROS is otherwise unremarkable Physical Examination - Physical Exam General: Alert, Oriented x3, Cooperative HEENT: Atraumatic, Normocephalic Neck: Supple, JVD not distended, No Thyromegaly Respiratory: Clear to auscultation bilaterally, Normal air movement Cardiovascular: No edema, Normal pulses, Regular rate/rhythm, Normal S1 S2 Capillary refill: <2 Seconds Gastrointestinal: Normal bowel sounds, Soft and benign, Non-distended, W/out hepatosplenomegaly, No ascites, No masses, No rebound, No guarding, Tenderness (RUQ> epigastric) Musculoskeletal: No clubbing, No swelling, No contractures, No erythema, No tenderness, No warmth Integumentary: No rashes, No breakdown, No significant lesion, No tenderness/swelling, No erythema Neurological: Normal speech, Normal strength at 5/5 x4 extr, Normal tone, Sensation intact, Cranial nerves 3-12 intact, Normal affect - Studies Laboratory Data (last 24 hrs) 09/12/25 09/12/25 05:07 05:07 WBC 4.00 L Hgb 12.8 Hct 37.8 Plt Count 357 Sodium 140 Potassium 3.4 L BUN 9 Creatinine 0.72 Glucose 85 Total Bilirubin 0.4 AST 16 ALT 60 H Alkaline Phosphatase 108 Lipase 23 Assessment and Plan - Plan Assessment: Jackie Marquez is a 34-year-old female with no significant past medical history who presents to the emergency department with a 3-day history of right-sided flank and abdominal pain. The pain originates in the right lower back and radiates to the right midback region. She also reports concurrent epigastric and right upper quadrant abdominal pain. The pain has been persistent since onset 3 days ago and has not been alleviated by any measures attempted. The patient sought emergency care due to the persistent nature and severity of her symptoms and being admitted for supportive care and pain control requiring IV medications. Plan: Hepatic steatosis RUQ pain Epigastric pain Hypoalbuminemia AST 16, ALT 60, albumin 3.1 Acute hepatitis panel ordered, will follow-up Abdominal ultrasound ordered, will follow Regular diet ordered Tylenol 650 mg every 4 hours as needed for mild pain Morphine 2 mg IV every 4 hours as needed for moderate to severe pain Monitor CMP Gastroesophageal reflux disease: Pantoprazole 40 mg IV x 1 Concern for pyelonephritis Back pain Given one-time dose of Zosyn 3.375 g in ED Renal ultrasound ordered Continue Zosyn pending ultrasound results Pain regimen as described above Nausea Consider safety profile prior to prescribing Promethazine 25 mg as needed for nausea Dispo: Anticipate home with no needs Disposition: DVT prophylaxis: Lovenox GI prophylaxis: Pantoprazole for GERD as above Diet: Regular Code Status: Full Code Discharge Plan: Home Plan to discharge in: 24 Hours - Advance Directives Does patient have a Living Will: No Does patient have a Durable POA for Healthcare: No - Code Status/Comfort Care Code Status Assessed: Yes (Full code) Critical Care: No
[2025-09-12] MEDS: Ringers Lactate 1,000 ML IV ONE (09:31)
[2025-09-12 09:43] LABS: Thyroid Stimulating Hormone 2.85 uIU/mL (0.358-3.740)
--- NOTE | 2025-09-12 09:51 | P.CNS ---
Date of Consult: 09/12/25 Reason for consult: Abdominal pain History of present illness: Patient is a 34-year-old female who presents to the emergency room with ongoing biliary colic. She came 2 days ago and was diagnosed with cholelithiasis and was discharged as her pain improved in the emergency room. She states that she has had this pain now is persistent. Patient has had biliary colic throughout her and was told that is most likely secondary to the at that time. She had a vaginal delivery which was unremarkable 13 days ago. She denies any sore throat, runny nose, cough, headaches, dizziness, chest pain, fever or chills. The pain is postprandial in nature. Pain is in the right upper quadrant radiating to the back and right shoulder. Patient also has occasional bloating and heartburn. Patient does not speak Jordanian and the history was obtained via circulating process inspector. Review of systems: Otherwise unremarkable Past medical history: Negative Past surgical history: Negative Allergies: None Social history: Patient does not smoke or drink alcohol Family history: Heart disease in the mother Vital signs: Stable, afebrile Physical exam: Awake, alert and oriented x 3 Head and neck exam: No evidence of icterus, no neck masses, no JVD, throat clear neck supple Chest: Clear Heart: S1-S2 Abdomen: Soft, nondistended, positive bowel sound, right upper quadrant tenderness with respiratory arrest on deep palpation Extremity: Neurovascular intact Neuro: Nonfocal Diagnostic data: Recent ultrasound and CAT scan reviewed. Laboratory data reviewed. White count is normal. ALT is slightly elevated at 60. Assessment: Acute and chronic cholecystitis and cholelithiasis in a patient that recently had a vaginal delivery Plan/recommendation: Admit, n.p.o., IV fluids, IV antibiotics and to the OR for laparoscopic cholecystectomy possible open. Patient has been via circulating process inspector understand risk, benefits and alternatives and agrees to procedure. CC:
[2025-09-12] MEDS ORDERED: FENTANYL CITR 100 MCG/2 ML ONE ×2 (11:45→12:38)
[2025-09-12] MEDS ORDERED: MIDAZOLAM HCL 2 MG/2 ML INJ ONE (11:46)
[2025-09-12] MEDS ORDERED: ROCURONIUM 50 MG/5 ML VIAL IV ONE (11:46)
[2025-09-12] MEDS ORDERED: LIDOCAINE 2% MPF 5 ML VIAL ONE (11:46)
[2025-09-12] MEDS: FAMOTIDINE 20 MG/2 ML VIAL IV ONE (11:54)
[2025-09-12] MEDS: SUCCINYLCHOLINE 20 MG/ML (10 ML) IV ONE (11:54)
[2025-09-12] MEDS ORDERED: Mastisol Adhesive Liq ONE (13:07)
--- NOTE | 2025-09-12 13:14 | P.OP ---
Date of Service: 09/12/25 Preop diagnosis: Acute and chronic cholecystitis and cholelithiasis Postop diagnosis: Same Procedure performed: Laparoscopic cholecystectomy Surgeon: Edward Morin MD Insurance Underwriter: None Estimated blood loss: Minimal Specimen: Gallbladder Findings: As above Anesthesia: General Complications: None Drains: None Fluids and blood products: Nonapplicable Disposition: Recovery room Operative note: Patient brought to the OR and placed in the supine position. General anesthesia began. Patient prepped and draped in the usual sterile fashion. Marcaine 0.5% infiltrated locally. 15 blade used to make a 1 cm supraumbilical midline incision. Subcutaneous tissue divided and bleeding controlled cautery. Fascia identified and divided. #1 Vicryl stay suture placed. Peritoneal cavity entered with sharp and blunt dissection. 12 mm trocar placed into the peritoneal cavity under direct vision. Pneumoperitoneum established. And then three 5 mm trocar placed under direct vision. 1 trocar placed in the epigastric region and 2 trocars placed in the right subcostal region laparoscopy revealed a distended gallbladder which was aspirated of bile to allow for better grasping. Then fundus identified and retracted superiorly. Infundibulum identified and retracted inferolaterally. Cystic duct and cystic artery clearly identified with blunt dissection. Clips placed about structures divided. Cautery used to remove the gallbladder from the liver bed. Gallbladder was intrahepatic in nature. Bleeding controlled with cautery. Gallbladder retrieved to the umbilicus via Endo Catch bag. Right upper quadrant irrigated and effluent clear. No evidence of bleeding or bile leakage was appreciated. Subsequently, all trocars removed under direct vision. Stay suture site each other to reapproximate the fascial defect. Subcutaneous wound irrigated and bleeding controlled cautery. 3-0 chromic used to reapproximate the subcutaneous tissue and close skin. Sterile dressing applied. Patient awakened and taken to recovery room in good general condition. CC:
[2025-09-12] MEDS: ONDANSETRON 4 MG/2 ML VIAL ONE (13:39)
[2025-09-12 14:30] VITALS: BMI 30.2
[2025-09-12] MEDS ORDERED: PIPER TAZO 3.375 GM in NA CHLORIDE 0.9% 100 ML IV SCH (15:00)
[2025-09-12 18:02] LABS: HBsAG Nonreactive Report Report; Hepatitis B surface AG Interp. Nonreactive (Nonreactive)
[2025-09-12] MEDS: HYDROMORPHONE HCL 1 MG/ML INJ IV PRN (22:06)
[2025-09-12] MEDS: PROMETHAZINE 25 MG TABLET PO PRN (23:06)
[2025-09-13 06:02] LABS: Absolute Lymphocytes (CBC) 1.6 K/uL (0.7-4.9); Hematocrit 34.8 % (36.0-45.0); Hemoglobin 11.6 g/dL (12.0-15.0); MCH 27.7 pg (27.0-35.0); MCHC 33.4 g/dL (32.0-36.0); MCV 82.9 fL (80-100); MPV 7.5 fL (7.6-11.3); Nucleated RBC Absolute Count 0.0 (0-0); Nucleated Red Blood Cells % 0.1 % (0-0); RBC Red Blood Cell Count 4.19 M/uL (3.86-4.86); White Blood Count 6.00 thou/uL (4.3-10.9)
[2025-09-13 06:23] LABS: ALT/SGPT 106.0 U/L (13-56); AST/SGOT 78.0 U/L (15-37); Albumin 2.6 g/dL (3.4-5.0); Albumin/Globulin Ratio 0.8 (1.1-1.8); Alkaline Phosphatase 85.0 U/L (45-117); Anion Gap 9.7 mEq/L (5.0-15.0); BUN Blood Urea Nitrogen 8.0 mg/dL (7-18); Globulin 3.3 g/dL (2.3-3.5); Glucose Level 81.0 mg/dL (74-106); Magnesium 2.1 mg/dL (1.6-2.4); Potassium 3.7 mEq/L (3.5-5.1)
[2025-09-13] MEDS: POTASSIUM 25 MEQ EFFERV TAB PO ONE (07:44)
[2025-09-13 08:50] VITALS: BP 123/73; TEMP 97.6
[2025-09-13 09:16] VITALS: O2SAT 95
--- NOTE | 2025-09-13 09:28 | P.DS ---
Admission Date: 09/12/25 Discharge Date: 09/13/25 Primary Care Provider: None Disposition: ROUTINE DISCHARGE Discharge Condition: GOOD Reason for Admission: Back pain,abdominal pain Consultations: Surgery Procedures: Laparoscopic cholecystectomy 09/12/2024 Brief History of Present Illness: Jackie Marquez is a 34-year-old female with recent imaging demonstrating hepatic steatosis and an current who presents to the emergency department with a 3-day history of right-sided flank and abdominal pain. The back pain originates in the right lower back and radiates to the right midback region. She also reports concurrent epigastric and right upper quadrant abdominal pain, accompanied by chills. The pain has been persistent since onset 3 days ago and has not been alleviated by any measures attempted. The patient sought emergency care due to the persistent nature and severity of her symptoms. In ED patient given Zofran 4 mg IV, acetaminophen 1 g p.o., morphine 2 mg IV, Toradol 15 mg x 1 and Zosyn 3.375 g x 1 with good relief of symptoms. Vital signs stable room air. Mild hypokalemia potassium 3.4, LFTs AST 16, ALT 60, albumin 3.1, test positive, lipase 23. Hospital Course: Biliary colic/cholelithiasis (postoperative status): Dr. Morin was consulted for ongoing biliary colic and surgical evaluation. The patient is 14 days status post vaginal delivery and was assessed on the day of discharge by myself and Dr. Morin on room air in no apparent distress. Mild tenderness was noted at laparoscopic entry sites without signs of infection. Per Dr. Morin, the patient is appropriate for discharge home after toleration of breakfast. Postoperative nausea: The patient endorsed mild nausea overnight without vomiting, now resolved. Antiemetic prescription sent to her preferred pharmacy ([facility]) for outpatient management as needed. Acute blood loss anemia (mild): Morning labs on September 13 demonstrated a mild postoperative hemoglobin/hematocrit drop (Hgb 11.6 g/dL, Hct 34.8%) from normal values on admission, consistent with mild acute blood loss anemia. The patient is hemodynamically stable, and no transfusion is indicated. Continued routine postoperative monitoring and outpatient recheck as clinically indicated. Leukocyte count/electrolytes: CBC otherwise unremarkable with WBC 6 K/L. Electrolytes are within normal limits on September 13. Transaminitis: Liver enzymes remain mildly elevated (AST 78 U/L, ALT 106 U/L) with a negative acute hepatitis panel. Findings are consistent with transient postoperative/obstructive pattern expected in the estelita-cholecystectomy course; no jaundice or systemic symptoms. We recommend outpatient LFT recheck and clinical follow-up. Pain control and wound care: Mild tenderness at trocar sites managed with multimodal analgesia as needed. No drainage or erythema reported. Standard wound care instructions to be provided at discharge. Disposition: After successful oral intake at breakfast, the patient is cleared for discharge home with her at bedside, antiemetic prescription to [facility] in [place], and return precautions. Outpatient follow-up with Dr. Morin for postoperative review, as well as primary care/surgery follow-up for repeat CBC and LFTs. Vital Signs/Physical Exam: Temp Pulse Resp BP Pulse Ox 97.6 F 63 16 123/73 95 09/13/25 08:00 09/13/25 08:00 09/13/25 08:00 09/13/25 08:00 09/13/25 08:00 Laboratory Data at Discharge: WBC 6.00 thou/uL (4.3-10.9) 09/13/25 05:31 Hgb 11.6 g/dL (12.0-15.0) L D 09/13/25 05:31 Hct 34.8 % (36.0-45.0) L 09/13/25 05:31 Plt Count 320 thou/uL (152-406) 09/13/25 05:31 Sodium 141 mEq/L (136-145) 09/13/25 05:31 Potassium 3.7 mEq/L (3.5-5.1) 09/13/25 05:31 BUN 8 mg/dL (7-18) 09/13/25 05:31 Creatinine 0.62 mg/dL (0.55-1.02) 09/13/25 05:31 Glucose 81 mg/dL (74-106) 09/13/25 05:31 Phosphorus 4.3 mg/dL (2.5-4.9) 09/13/25 05:31 Magnesium 2.1 mg/dL (1.6-2.4) 09/13/25 05:31 Total Bilirubin 0.3 mg/dL (0.2-1.0) 09/13/25 05:31 AST 78 U/L (15-37) H 09/13/25 05:31 ALT 106 U/L (13-56) H 09/13/25 05:31 Alkaline Phosphatase 85 U/L (45-117) D 09/13/25 05:31 Lipase 23 U/L (13-75) 09/12/25 05:07 Home Medications: Ketorolac [Toradol*] 10 mg PO Q6H PRN 7 Days #28 tab 09/13/25 Promethazine Tab [Phenergan*] 25 mg PO Q6HP PRN #28 tab 09/13/25 New Medications: Promethazine Tab [Phenergan*] 25 mg PO Q6HP PRN #28 tab PRN Reason: Nausea / Vomiting Ketorolac [Toradol*] 10 mg PO Q6H PRN 7 Days #28 tab PRN Reason: Pain Scale 5-7 (Moderate) Physician Discharge Instructions: May shower Remove outer dressing after shower tomorrow morning Keep Steri-Strips on at all times Incentive spirometry as instructed Follow-up my office 1 week, call for appointment No heavy lifting or strenuous exercise Discharge medications per the hospitalist team Diet: Regular Activity: No lifting more than 10 lbs Followup: Edawrd Morin MD [ACTIVE - CAN ADMIT] - 1 Week NONE,NONE [Primary Care Provider] -
--- NOTE | 2025-09-13 09:31 | P.DS ---
Admission Date: 09/12/25 Discharge Date: 09/13/25 Primary Care Provider: None Disposition: ROUTINE DISCHARGE Discharge Condition: GOOD Reason for Admission: Back pain,abdominal pain Consultations: Surgery Procedures: Laparoscopic cholecystectomy 09/12/2024 Brief History of Present Illness: Jackie Marquez is a 34-year-old female with recent imaging demonstrating hepatic steatosis and an current who presents to the emergency department with a 3-day history of right-sided flank and abdominal pain. The back pain originates in the right lower back and radiates to the right midback region. She also reports concurrent epigastric and right upper quadrant abdominal pain, accompanied by chills. The pain has been persistent since onset 3 days ago and has not been alleviated by any measures attempted. The patient sought emergency care due to the persistent nature and severity of her symptoms. In ED patient given Zofran 4 mg IV, acetaminophen 1 g p.o., morphine 2 mg IV, Toradol 15 mg x 1 and Zosyn 3.375 g x 1 with good relief of symptoms. Vital signs stable room air. Mild hypokalemia potassium 3.4, LFTs AST 16, ALT 60, albumin 3.1, test positive, lipase 23. Hospital Course: Biliary colic/cholelithiasis (postoperative status): Dr. Morin was consulted for ongoing biliary colic and surgical evaluation. The patient is 14 days status post vaginal delivery and was assessed on the day of discharge by myself and Dr. Morin on room air in no apparent distress. Mild tenderness was noted at laparoscopic entry sites without signs of infection. Per Dr. Morin, the patient is appropriate for discharge home after toleration of breakfast. Postoperative nausea: The patient endorsed mild nausea overnight without vomiting, now resolved. Antiemetic prescription sent to her preferred pharmacy ([facility]) for outpatient management as needed. Acute blood loss anemia (mild): Morning labs on September 13 demonstrated a mild postoperative hemoglobin/hematocrit drop (Hgb 11.6 g/dL, Hct 34.8%) from normal values on admission, consistent with mild acute blood loss anemia. The patient is hemodynamically stable, and no transfusion is indicated. Continued routine postoperative monitoring and outpatient recheck as clinically indicated. Leukocyte count/electrolytes: CBC otherwise unremarkable with WBC 6 K/L. Electrolytes are within normal limits on September 13. Transaminitis: Liver enzymes remain mildly elevated (AST 78 U/L, ALT 106 U/L) with a negative acute hepatitis panel. Findings are consistent with transient postoperative/obstructive pattern expected in the estelita-cholecystectomy course; no jaundice or systemic symptoms. We recommend outpatient LFT recheck and clinical follow-up. Pain control and wound care: Mild tenderness at trocar sites managed with multimodal analgesia as needed. No drainage or erythema reported. Standard wound care instructions to be provided at discharge. Disposition: After successful oral intake at breakfast, the patient is cleared for discharge home with her at bedside, antiemetic prescription to [facility] in [place], and return precautions. Outpatient follow-up with Dr. Morin for postoperative review, as well as primary care/surgery follow-up for repeat CBC and LFTs. Vital Signs/Physical Exam: Temp Pulse Resp BP Pulse Ox 97.6 F 63 16 123/73 95 09/13/25 08:00 09/13/25 08:00 09/13/25 08:00 09/13/25 08:00 09/13/25 08:00 Other Physical/Emotional Findings: GEN: No apparent distress, nontoxic appearance. HEENT: Nasal septum midline. RESP: No accessory muscle use. CV: Regular rate. MSK: No cyanosis or clubbing. SKIN: No visible rash, bandages to abdomen CDI. PSYCH: Alert, not appearing anxious or agitated Laboratory Data at Discharge: WBC 6.00 thou/uL (4.3-10.9) 09/13/25 05:31 Hgb 11.6 g/dL (12.0-15.0) L D 09/13/25 05:31 Hct 34.8 % (36.0-45.0) L 09/13/25 05:31 Plt Count 320 thou/uL (152-406) 09/13/25 05:31 Sodium 141 mEq/L (136-145) 09/13/25 05:31 Potassium 3.7 mEq/L (3.5-5.1) 09/13/25 05:31 BUN 8 mg/dL (7-18) 09/13/25 05:31 Creatinine 0.62 mg/dL (0.55-1.02) 09/13/25 05:31 Glucose 81 mg/dL (74-106) 09/13/25 05:31 Phosphorus 4.3 mg/dL (2.5-4.9) 09/13/25 05:31 Magnesium 2.1 mg/dL (1.6-2.4) 09/13/25 05:31 Total Bilirubin 0.3 mg/dL (0.2-1.0) 09/13/25 05:31 AST 78 U/L (15-37) H 09/13/25 05:31 ALT 106 U/L (13-56) H 09/13/25 05:31 Alkaline Phosphatase 85 U/L (45-117) D 09/13/25 05:31 Lipase 23 U/L (13-75) 09/12/25 05:07 Home Medications: Ketorolac [Toradol*] 10 mg PO Q6H PRN 7 Days #28 tab 09/13/25 Promethazine Tab [Phenergan*] 25 mg PO Q6HP PRN #28 tab 09/13/25 New Medications: Promethazine Tab [Phenergan*] 25 mg PO Q6HP PRN #28 tab PRN Reason: Nausea / Vomiting Ketorolac [Toradol*] 10 mg PO Q6H PRN 7 Days #28 tab PRN Reason: Pain Scale 5-7 (Moderate) Physician Discharge Instructions: May shower Remove outer dressing after shower tomorrow morning Keep Steri-Strips on at all times Incentive spirometry as instructed Follow-up my office 1 week, call for appointment No heavy lifting or strenuous exercise Diet: Regular Activity: No lifting more than 10 lbs Followup: NONE,NONE [Primary Care Provider] - Edward Morin MD [ACTIVE - CAN ADMIT] - 1 Week Time spent managing pt's care (in minutes): 38
--- NOTE | 2025-09-13 10:49 | PN ---
Date of Progress Note: 09/13/2025 Subjective: The patient is awake, alert. No complaint. Objective: Vital Signs: Stable. Afebrile. Abdomen: Benign. Dressing is clean, dry, and intact. Laboratory Data: Reviewed. Assessment: Status post laparoscopic cholecystectomy. Recommendations: The patient is cleared from a surgical standpoint for discharge. The patient can f ollow up with me in a week. Discharge instructions given in detail via a salesperson art objects. The patient do es not need antibiotics and pain management should be Tylenol or Advil as she is . /MODL Voice ID: [id number] Report ID: [id number]
[2025-09-13] MEDS: HYDROCODONE/APAP 7.5/325 MG TAB PO PRN (11:04)
== END 2025-09-13 11:50 | disposition home or self-care (01) ==
LOC: ER 04:18 → ERHOLD 08:59 → 4TH 11:55
PROVIDERS: ADMIT Hospitalist; ATTEND Hospitalist
PROC: 0FT44ZZ Resection of Gallbladder, Percutaneous Endoscopic Approach (ICD-10-PCS; principal; 2025-09-12 10:30)
DX: O99.63 Diseases of the digestive system complicating the puerperium (principal); K80.47 Calculus of bile duct with acute and chronic cholecystitis with obstruction; D62 Acute posthemorrhagic anemia; K76.0 Fatty (change of) liver, not elsewhere classified; R10.13 Epigastric pain; E88.09 Other disorders of plasma-protein metabolism, not elsewhere classified; K21.9 Gastro-esophageal reflux disease without esophagitis; M54.9 Dorsalgia, unspecified; R74.01 Elevation of levels of liver transaminase levels; R11.0 Nausea
CPT/HCPCS: 96365; 85025 ×2; 36415 ×2; 83735; 84703; 84100; 84132; 88304; 84443; 84439; 83690; 80053 ×2; 80074; 94010 ×2; 96375; 99285; 47562; J1885; Q0169; J2704; J2543; J2003; J2250; J3010 ×2; J1100; J1171; J2405 ×3; J7120; J7030 ×2; J0330; G0378